=== PATIENT | male | born 1955 | race Caucasian/White ===

== ENCOUNTER 2020-01-30 09:31 | Outpatient (REF) | payer OTHER, SELFPAY ==
--- NOTE | 2020-01-30 | US_ITS ---
EXAMINATION: US ABDOMEN COMPLETE CLINICAL INFORMATION: Right upper quadrant abdominal pain. Fatty liver. Liver fibrosis. COMPARISON: Ultrasound-guided biopsy liver 04/10/2014. CT abdomen 01/25/2014. Ultrasound abdomen 01/17/2014. TECHNIQUE: Real-time imaging of the abdominal viscera. FINDINGS: PANCREAS: Normal. ABDOMINAL AORTA: The proximal segment is normal in caliber. INFERIOR VENA CAVA: Visualized portions are normal. LIVER: There is diffuse increased liver parenchymal echogenicity, most likely representing fatty infiltration. There are irregularly-shaped areas of low attenuation, probably representing areas of focal fatty sparing. The liver is slightly enlarged, right lobe measuring 19 cm in length. The liver is normal in contour. No biliary ductal dilatation. GALLBLADDER: Normal. The gallbladder is physiologically distended without evidence of stones, sludge, polyps, wall thickening or pericholecystic fluid. COMMON BILE DUCT: Normal in caliber measuring 0.3 cm in diameter. RIGHT KIDNEY: Normal. No hydronephrosis. No renal calculi or focal parenchymal lesions. The kidney measures 11.8 cm in maximum dimension. LEFT KIDNEY: Normal. No hydronephrosis. No renal calculi or focal parenchymal lesions. The kidney measures 10.8 cm in maximum dimension. SPLEEN: Normal. The spleen measures 10.8 cm in maximum dimension. FREE FLUID: None. IMPRESSION: Echogenic liver with irregularly-shaped hypoechoic peripheral areas probably representing fatty infiltration with areas of focal fatty sparing.
== END 2020-01-30 09:32 | disposition home or self-care (01) ==
LOC: HO.US 09:31
PROVIDERS: Visit Provider Internal Medicine
DX: R10.11 Right upper quadrant pain (principal); K76.0 Fatty (change of) liver, not elsewhere classified
CPT/HCPCS: 76700

== ENCOUNTER 2020-07-04 12:54 | Outpatient (REF) | payer OTHER, SELFPAY ==
[2020-07-04 13:36] LABS: MANUAL DIFF FLAG NO
[2020-07-04 13:41] LABS: Basophils Absolute Auto 0.1 X10*3/uL (0.0-0.2); Basophils Percent Auto 0.7 % (0-2); Eosinophils Absolute Auto 0.3 X10*3/uL (0.0-0.4); Eosinophils Percent Auto 3.2 % (0-4); Hematocrit 43.8 % (42-52); Hemoglobin 14.4 g/dl (14.0-18.0); Imm Gran Abs Auto 0.04 X10*3/uL (0.00-0.03); Imm Gran Pct Auto 0.4 % (0.0-0.4); Lymphocytes Absolute Auto 1.4 X10*3/uL (1.2-4.9); Lymphocytes Percent Auto 14.9 % (20-40); Mean Corpuscular HGB Conc 32.9 g/dl (31.0-36.0); Mean Corpuscular Volume 94.4 fL (80-98); Mean Platelet Volume 10.2 fL (9.4-12.4); Monocytes Absolute Auto 0.6 X10*3/uL (0.1-1.2); Monocytes Percent Auto 6.7 % (2-11); Neutrophils Absolute Auto 7.1 X10*3/uL (2.0-8.3); Neutrophils Percent Auto 74.1 % (45-73); Platelet Count 308 X10*3/uL (160-400); Red Blood Count 4.64 X10*6/uL (4.60-5.80); Red Cell Distribution Width 14.6 % (11.0-16.0); White Blood Count 9.5 X10*3/uL (4.8-10.8)
[2020-07-04 14:02] LABS: Alanine Aminotransferase 19 U/L (0-40); Albumin Level 4.5 g/dL (3.5-5.0); Alkaline Phosphatase 62 U/L (39-117); Aspartate Amino Transferase 18 U/L (5-37); Bilirubin Direct < 0.2 mg/dL (0.0-0.5); Bilirubin Total 0.3 mg/dL (0.0-1.0); C Reactive Protein 0.31 mg/dL (< or = 0.50); Total Protein 7.7 g/dL (6.5-8.0)
[2020-07-04 14:36] LABS: Erythrocyte Sedimentation Rate 4 MM/HR (0-15)
== END 2020-07-04 12:55 | disposition home or self-care (01) ==
LOC: HO.LAB 12:54
PROVIDERS: PCP Internal Medicine; Visit Provider Internal Medicine
DX: K62.5 Hemorrhage of anus and rectum (principal); R19.7 Diarrhea, unspecified
CPT/HCPCS: 36415; 80076; 85025; 85652; 86140

== ENCOUNTER 2020-07-08 09:13 | Day surgery (SDC) | payer OTHER, SELFPAY ==
[2020-07-02 10:46] VITALS: BMI 28.8
--- NOTE | 2020-07-05 09:41 | HO.ANESPROP2 ---
Documented by User: Sunni Emilia 07/05/20 09:42 HPI - Anesthesia Eval Consult details Narrative: 64yo M for Colonoscopy [facility] Past Medical History Medical History Arthritis GERD (gastroesophageal reflux disease) Hiatal hernia Hx of bipolar disorder Thyroid disease Surgical History Surgical History H/O colonoscopy History of dental surgery History of esophagogastroduodenoscopy (EGD) Social History Social History Smoking Status: Former smoker Smoked in Last 30 Days: No Smoking Quit Date: 2009 Use of substances other than those prescribed or required for medical reasons: No Advance Directives Information Provided: No Meds Allergies Allergy/AdvReac Type Severity Reaction Status Date / Time haloperidol [From HALDOL] Allergy Unknown UNKNOWN Unverified 01/11/20 16:40 prednisone [PREDNISONE] Allergy Unknown UNKNOWN, Unverified 01/11/20 16:40 er in psych Home Medications Medication Instructions Recorded Confirmed Last Taken Type acetaminophen [Tylenol Extra 1,000 mg PO Q6H PRN 07/02/20 07/02/20 Unknown History Strength] adalimumab [Humira] 40 mg SUBCUT Q2W 07/02/20 07/02/20 Unknown History cyclobenzaprine 10 mg PO TID PRN 07/02/20 07/02/20 Unknown History levothyroxine [Levoxyl] 50 mcg PO DAILY 07/02/20 07/02/20 Unknown History lithium carbonate 300 mg PO BEDTIME 07/02/20 07/02/20 Unknown History multivitamin 1 tab PO DAILY 07/02/20 07/02/20 Unknown History pantoprazole 40 mg PO DAILY 07/02/20 07/02/20 Unknown History quetiapine [Seroquel] 400 mg PO BEDTIME 07/02/20 07/02/20 Unknown History Exam Exam Date and Time: July 05, 2020 0941 Height,Weight and Vital Signs: Height 5 ft 7.5 in Weight 84.822 kg Pertinent Lab Results Pertinent Lab Results: Laboratory Tests 12/26/19 07/04/20 12:10 13:05 WBC 9.5 Hgb 14.4 Hct 43.8 Plt Count 308 Sodium 139 Potassium 4.8 Chloride 108 BUN 16 Creatinine 1.08 Assessment and Plan Assessment Anesthesia Assessment: Chart Reviewed Documented by User: Ken Romero MD 07/08/20 10:43 [facility] Past Medical History Medical History Arthritis GERD (gastroesophageal reflux disease) Hiatal hernia Hx of bipolar disorder Thyroid disease Surgical History Surgical History H/O colonoscopy History of dental surgery History of esophagogastroduodenoscopy (EGD) Social History Social History Smoking Status: Former smoker Smoked in Last 30 Days: No Smoking Quit Date: 2009 Use of substances other than those prescribed or required for medical reasons: No Advance Directives Information Provided: No Meds Allergies Allergy/AdvReac Type Severity Reaction Status Date / Time haloperidol [From HALDOL] Allergy Unknown UNKNOWN Unverified 01/11/20 16:40 prednisone [PREDNISONE] Allergy Unknown UNKNOWN, Unverified 01/11/20 16:40 er in psych Home Medications Medication Instructions Recorded Confirmed Last Taken Type acetaminophen [Tylenol Extra 1,000 mg PO Q6H PRN 07/02/20 07/02/20 Unknown History Strength] adalimumab [Humira] 40 mg SUBCUT Q2W 07/02/20 07/02/20 Unknown History cyclobenzaprine 10 mg PO TID PRN 07/02/20 07/02/20 Unknown History levothyroxine [Levoxyl] 50 mcg PO DAILY 07/02/20 07/02/20 Unknown History lithium carbonate 300 mg PO BEDTIME 07/02/20 07/02/20 Unknown History multivitamin 1 tab PO DAILY 07/02/20 07/02/20 Unknown History pantoprazole 40 mg PO DAILY 07/02/20 07/02/20 Unknown History quetiapine [Seroquel] 400 mg PO BEDTIME 07/02/20 07/02/20 Unknown History Exam Airway Mallampati Class: III TM Dist: >3cm Neck ROM: Full Denture: Upper Loose/Missing/Broken Teeth: No Heart: RRR Lungs: NL Assessment and Plan Assessment Anesthesia Assessment: Anesthesia Plan Discussed and Chart Reviewed Final Anesthetic Review NPO: Yes ASA Class: III Final Preanesthetic Review: No Changes in Pt Med Stat, Meds/Allgs Chart Reviewed, Consent Obtained/Reviewed and Anes Risks/Benef Reviewed Patient Risk: Intermediate Procedure Risk: Low Anesthetic Plan Anesthetic Plan: MAC: Disposition: Standard PACU
[2020-07-08 10:20] VITALS: BP 137/96; PULSE 72; RESP 16; TEMP 36.9; O2SAT 98
[2020-07-08] MEDS: Lactated Ringers 1,000 ML 100 ML IVCONT (10:47)
[2020-07-08 12:16] VITALS: BP 119/78; PULSE 67; RESP 18; TEMP 36.3; O2SAT 97
--- NOTE | 2020-07-08 12:25 | PM.OP ---
Brief Operative Note Date of Service: 07/08/20 Pre-op diagnosis: Diarrhea, Rectal bleeding, Hx of polyps Post-op diagnosis: other (Colon polyps, R/O Microscopic colitis) Procedure: Colonoscopy to the cecum and TI with snare polypectomy x2, biopsies and removal of polyp, and biopsies; placement of 2 Resolution clips on rectal polypectomy site, and marking of the same area with Ink. Surgeon: Heath Clifton Anesthesia: MAC Estimated blood loss (mL): 5.0 Pathology: other (A. Transverse colon polyp B. TI C. Polyp on ICV D. Ascending colon E. Descending colon F. Rectal polyp) Condition: stable Disposition: PACU
[2020-07-08 12:31] VITALS: BP 138/67; PULSE 63; RESP 16; TEMP 36.3; O2SAT 100
--- NOTE | 2020-07-08 12:47 | OP_ITS ---
SURGEON: Heath Clifton MD INDICATIONS: The patient presents for evaluation of personal history of tubular adenoma of the colon, family history colon cancer, diarrhea, and rectal bleeding. PREOPERATIVE DIAGNOSIS: POSTOPERATIVE DIAGNOSIS: PROCEDURE PERFORMED: ESTIMATED BLOOD LOSS: COMPLICATIONS: ANESTHESIA: Monitored anesthesia care. ASSISTANTS: SPECIMENS: PREOPERATIVE DIAGNOSES: Rectal bleeding, history of tubular adenomas, family history of colon cancer and diarrhea. POSTOPERATIVE DIAGNOSES: Rectal bleeding, history of tubular adenomas, family history of colon cancer and diarrhea, colon polyps, rule out microscopic colitis, diverticulosis, and internal hemorrhoids. DESCRIPTION OF PROCEDURE: The patient was placed in the left lateral decubitus position. The digital rectal exam revealed no abnormalities. The Olympus video pediatric colonoscope was entered into the rectum and advanced easily to the cecum. Once in the cecum, I did identify normal-appearing cecal pouch with appendiceal orifice and a normal-appearing ileocecal valve. The terminal ileum was cannulated and appeared normal. The terminal ileum was biopsied. The scope was withdrawn back in the colon. The ileocecal valve did appear normal, but there was an approximately 4 or 5 mm slightly raised area on the portion of the valve closest to the cecum, which appeared to be somewhat adenomatous in appearance. Therefore, this was biopsied and completely removed with cold biopsy forceps. The scope was then slowly withdrawn assessing all mucosal surfaces carefully. Preparation was excellent. In the ascending colon, I obtained biopsies to rule out microscopic colitis. Mucosa appeared normal. In the transverse colon, there was a flat, but raised approximately 8 to 10 mm polyp, which was snared in piecemeal fashion and recovered by suction for pathology. The polypectomy site appeared clean, without any sign of residual polyp nor bleeding. I did not visualize any sign of colitis nor angiodysplasia. I did obtain random biopsies in the descending colon as well to rule out microscopic colitis. There was a moderate amount of sigmoid diverticulosis. In the proximal rectum, was an approximately 1.5 cm polyp, which appeared to be somewhat inflamed and friable. This was removed completely by snare polypectomy. The polypectomy site appeared clean, without any sign of residual polyp nor bleeding. I did place 2 resolution clips on the polypectomy site with good hemostasis and good deployment. Given the appearance of the polyp, I did place submucosal ink markings on either side of it with good marking noted. The scope was retroflexed visualizing some internal hemorrhoids, but no other pathology. The scope was straightened out and withdrawn from the patient. He tolerated the procedure well and was returned to the recovery area in stable condition. IMPRESSION: 1. Colon polyps, status post snare polypectomy, and biopsy and removal. 2. Placement of 2 resolution clips and submucosal ink markings on the rectal polypectomy site. 3. Rule out microscopic colitis. 4. Diverticulosis. 5. Internal hemorrhoids. PLAN: The results of the pathology will be checked. Given his history and family history, I would recommend a repeat colonoscopy in 1 year for further screening. He was advised not to use any aspirin and NSAIDs for 1 week. He was advised to use Imodium on a p.r.n. basis for his loose bowel movements as well as to start some fiber such as Metamucil or Citrucel. If the diarrhea persists, we may want to try him on a trial of cholestyramine. He will be seen in the office in the next 1 or 2 months. This has been discussed with his . PROCEDURES PERFORMED: Colonoscopy to the cecum and terminal ileum with snare polypectomy, biopsies, and removal of polyps, biopsies, placement of 2 resolution clips on the rectal polypectomy site, and marking with submucosal ink of the rectal polypectomy site. Full consent has been obtained from him for this, including risks of bleeding and perforation. MD HERB Mendez/DORON / [id number] MTDDeborah
== END 2020-07-08 15:11 | disposition home or self-care (01) ==
PROVIDERS: PCP Internal Medicine; Visit Provider Internal Medicine
PROC: 0DJD8ZZ Inspection of Lower Intestinal Tract, Via Natural or Artificial Opening Endoscopic (ICD-10-PCS; CPT 45378; principal; 2020-07-08 10:50)
DX: K62.5 Hemorrhage of anus and rectum (principal); Z86.010 Personal history of colon polyps; Z80.0 Family history of malignant neoplasm of digestive organs; D12.0 Benign neoplasm of cecum; D12.3 Benign neoplasm of transverse colon; D12.8 Benign neoplasm of rectum; K52.9 Noninfective gastroenteritis and colitis, unspecified; K57.30 Diverticulosis of large intestine without perforation or abscess without bleeding; K64.8 Other hemorrhoids; K21.9 Gastro-esophageal reflux disease without esophagitis; M06.9 Rheumatoid arthritis, unspecified; E03.9 Hypothyroidism, unspecified; Z87.891 Personal history of nicotine dependence; Z88.8 Allergy status to other drugs, medicaments and biological substances; Z79.899 Other long term (current) drug therapy
CPT/HCPCS: 45385; 45380; 45381; 88305; J3010

== ENCOUNTER 2021-04-19 11:15 | Emergency (ER) | payer OTHER, SELFPAY ==
[2021-04-19 11:19] VITALS: BP 130/78; PULSE 57; RESP 20; TEMP 37.6; O2SAT 96; BMI 28.1
[2021-04-19 12:41] LABS: COVID-19 Test Negative (Negative)
--- NOTE | 2021-04-19 17:31 | ED.URI ---
HPI - URI/Sore Throat General Chief Complaint: Upper Respiratory Symptoms Stated Complaint: CONGESTION Time Seen by Provider: 04/19/21 12:12 History of Present Illness HPI Narrative: Patient complains of nasal congestion runny nose for several days, no shortness breath no chest pain cough no fever Related Data Home Medications Medication Instructions Recorded Confirmed acetaminophen 500 mg tablet 1,000 mg PO Q6H PRN 07/02/20 07/02/20 (Tylenol Extra Strength) adalimumab 40 mg/0.8 mL 40 mg SUBCUT Q2W 07/02/20 07/02/20 subcutaneous syringe kit (Humira) cyclobenzaprine 10 mg tablet 10 mg PO TID PRN 07/02/20 07/02/20 levothyroxine 50 mcg tablet 50 mcg PO DAILY 07/02/20 07/02/20 (Levoxyl) lithium carbonate 300 mg capsule 300 mg PO BEDTIME 07/02/20 07/02/20 multivitamin 1 tab PO DAILY 07/02/20 07/02/20 pantoprazole 40 mg tablet,delayed 40 mg PO DAILY 07/02/20 07/02/20 release quetiapine 400 mg tablet (Seroquel) 400 mg PO BEDTIME 07/02/20 07/02/20 Allergies Allergy/AdvReac Type Severity Reaction Status Date / Time haloperidol [From HALDOL] Allergy Unknown UNKNOWN Unverified 01/11/20 16:40 prednisone [PREDNISONE] Allergy Unknown UNKNOWN, Unverified 01/11/20 16:40 er in psych Review of Systems Review of Systems: Positive for nasal congestion and runny nose Negatives are no fever no chills no dizziness weakness no headache no neck pain no sore throat no chest pain no cough no sputum no difficulty breathing no abdominal pain no nausea vomiting or diarrhea Yes all other systems are reviewed and are negative PMFSH Past Medical History Source: nursing notes reviewed Medical History Arthritis GERD (gastroesophageal reflux disease) Hiatal hernia Hx of bipolar disorder Thyroid disease Surgical History H/O colonoscopy History of dental surgery History of esophagogastroduodenoscopy (EGD) Social History Social History Advance Directives: No Advance Directives Information Provided: No Physical Exam Vital Signs: Vital Signs: Last Vital Signs Temp 99.6 F 04/19/21 11:19 Pulse 57 04/19/21 11:19 Resp 20 04/19/21 11:19 BP 130/78 04/19/21 11:19 Pulse Ox 96 04/19/21 11:19 BMI result Body Mass Index 28.1 General appearance no acute distress the eyes no redness or discharge Chest was clear to auscultation bilateral No respiratory distress Heart no murmur Extremities full range of motion x4 Course Course Course Narrative: COVID test was negative and well-appearing patient was discharge diagnosis upper respiratory infection MDM - URI/Sore Throat Lab Data Labs: Lab Results 04/19/21 Range/Units 12:19 COVID-19 (JIGNA) Negative (Negative) COVID-19 Clin Com See Note Discharge Plan Discharge Clinical Impression: Upper respiratory infection Patient Disposition: Home, Self-Care Additional Instructions: COVID test is negative, your well-appearing and her vital signs were normal Return any time any concerns Prescriptions: No Action multivitamin Tablet 1 tab PO DAILY RF: 0 cyclobenzaprine 10 mg Tablet 10 mg PO TID PRN (Reason: Muscle Spasm) RF: 0 acetaminophen [Tylenol Extra Strength] 500 mg Tablet 1,000 mg PO Q6H PRN (Reason: Pain) RF: 0 lithium carbonate 300 mg Capsule 300 mg PO BEDTIME RF: 0 levothyroxine [Levoxyl] 50 mcg Tablet 50 mcg PO DAILY RF: 0 pantoprazole 40 mg Tablet,Delayed Release (Dr/Ec) 40 mg PO DAILY RF: 0 Humira 40 mg/0.8 mL Syringe Kit 40 mg SUBCUT Q2W RF: 0 quetiapine [Seroquel] 400 mg Tablet 400 mg PO BEDTIME RF: 0 Interventions: ED Discharge Assessment Last Done: 04/19/21 13:00 Discharge Date/Time: 04/19/21 13:00
== END 2021-04-19 13:00 | disposition home or self-care (01) ==
PROVIDERS: Physician Assistant Medical; Emergency Provider Emergency Medicine Emergency Medical Services; PCP Internal Medicine
DX: J06.9 Acute upper respiratory infection, unspecified (principal); Z20.822 Contact with and (suspected) exposure to COVID-19
CPT/HCPCS: 36415; 87635; 99283

== ENCOUNTER 2021-08-09 18:06 | Emergency (ER) | payer OTHER, SELFPAY ==
--- NOTE | ~2021-08-09 | CT_ITS ---
EXAMINATION: CT ABDOMEN AND PELVIS WITH CONTRAST CLINICAL INFORMATION: Right inguinal hernia. COMPARISON: 01/25/2014 TECHNIQUE: Multidetector volumetric images were obtained from the superior aspect of the liver through the pubic symphysis following administration 85 mL of Omnipaque 350 intravenous contrast. Sagittal and coronal reformatted images were obtained on the technologist's workstation. Oral contrast: No This CT examination was performed using dose optimization techniques as appropriate, variously including the following: *Automated exposure control *Adjustment of mA and/or kV according to patient size (this includes techniques or standardized protocols for targeted exams where dose is matched to indication/reason for exam; i.e. extremities or head) *Use of iterative reconstruction technique DLP: 515 mGy-cm FINDINGS: LUNG BASES: The visualized lung bases are unremarkable. LIVER, GALLBLADDER, AND BILIARY TREE: The liver is normal in size, shape, and attenuation. No focal hepatic lesion or biliary ductal dilatation is present. Gallbladder unremarkable. PANCREAS: Unremarkable. SPLEEN: Unremarkable. ADRENAL GLANDS: Unremarkable. KIDNEYS AND URETERS: The kidneys are normal in size, shape, and attenuation. No hydronephrosis, hydroureter, or calculi seen. No perinephric stranding. BLADDER: Unremarkable. GASTROINTESTINAL TRACT: Pancolonic diverticulosis. There is a short segment of the sigmoid colon in the right lower quadrant demonstrating marked submucosal edema and pericolic fat stranding associated with an inflamed diverticulum compatible with acute diverticulitis. Stomach and small bowel unremarkable. Appendix not seen, however there are no inflammatory changes in the pericecal region that might reflect appendicitis. ABDOMINAL WALL: There is a fat-containing direct internal hernia on the right, adjacent to the inflamed portion of the sigmoid colon, however no hollow visceral herniation. LYMPH NODES: Normal. VASCULAR: Aorta is atherosclerotic but normal caliber. Patent vascular structures. PELVIC VISCERA: Unremarkable. OSSEOUS STRUCTURES: No acute or suspicious osseous abnormalities. CT/CT abdomen pelvis w con IMPRESSION: Acute uncomplicated sigmoid diverticulitis within the right lower quadrant. Fat-containing direct inguinal hernia on the right.
[2021-08-09 18:07] VITALS: BP 113/78; PULSE 72; RESP 16; TEMP 36.3; O2SAT 96; BMI 27.3
[2021-08-09 18:25] LABS: MANUAL DIFF FLAG NO
[2021-08-09 18:27] LABS: Basophils Absolute Auto 0.1 X10*3/uL (0.0-0.2); Basophils Percent Auto 0.3 % (0-2); Eosinophils Absolute Auto 0.3 X10*3/uL (0.0-0.4); Eosinophils Percent Auto 2.3 % (0-4); Hematocrit 43.9 % (42.0-52.0); Hemoglobin 14.8 g/dl (14.0-18.0); Imm Gran Abs Auto 0.07 X10*3/uL (0.00-0.03); Imm Gran Pct Auto 0.5 % (0.0-0.4); Lymphocytes Absolute Auto 1.7 X10*3/uL (1.2-4.9); Mean Corpuscular HGB Conc 33.7 g/dl (31.0-36.0); Mean Corpuscular Hemoglobin 30.5 pg (27.0-33.0); Mean Corpuscular Volume 90.5 fL (80.0-98.0); Mean Platelet Volume 9.8 fL (9.4-12.4); Monocytes Absolute Auto 1.2 X10*3/uL (0.1-1.2); Monocytes Percent Auto 8.1 % (2-11); Neutrophils Absolute Auto 11.1 x10*3/uL (2.0-8.3); Neutrophils Percent Auto 76.8 % (45-73); Platelet Count 296 X10*3/uL (160-400); Red Blood Count 4.85 X10*6/uL (4.60-5.80); Red Cell Distribution Width 13.2 % (11.0-16.0); White Blood Count 14.5 X10*3/uL (4.8-10.8)
[2021-08-09 18:41] LABS: Anion Gap 13 (12-20); Blood Urea Nitrogen 11 mg/dL (9-16); Calcium 9.3 mg/dL (8.4-10.2); Carbon Dioxide 20 mmol/L (22-29); Chloride 108 mmol/L (96-108); Creatinine Clr Calc Pharmacy 81.2; Estimated Glomerular Filt Rate > 60; Glucose Random 96 mg/dL (60-115); Sodium 137 mmol/L (135-145)
--- NOTE | 2021-08-09 21:12 | ED.GENADULT ---
HPI - General Adult General Chief complaint: General Medical Stated complaint: hernia Time Seen by Provider: 08/09/21 21:12 Source: patient Mode of arrival: ambulatory Limitations: no limitations History of Present Illness HPI narrative: 65-year-old male who has a history of right groin pain x5 years. He states that 5 years ago he felt a pop and then developed a mass in his right groin after doing sit-ups. He states that usually he can reduce this mass whenever it is painful. Over the past 4 days however the mass is not been reducible and he has had constant moderate to severe pain in his right groin. The pain is worse with walking and with coughing. He states that he lies flat the pain is improved. Patient describes the pain as a constant, severe pain which is 10/10. He has had no nausea or vomiting. He states he has been having bowel movements but they are painful and less frequent. He denied frequency, urgency or dysuria. MD complaint: Right groin pain Onset (ago): day(s) (4) Location: abdomen ( right groin) Radiation: non-radiation Severity: severe Severity scale (1-10): 10 Quality: aching and constant Pain Consistency: constant Related Data Home Medications Medication Instructions Recorded Confirmed acetaminophen 500 mg tablet 1,000 mg PO Q6H PRN 07/02/20 07/02/20 (Tylenol Extra Strength) adalimumab 40 mg/0.8 mL 40 mg SUBCUT Q2W 07/02/20 07/02/20 subcutaneous syringe kit (Humira) cyclobenzaprine 10 mg tablet 10 mg PO TID PRN 07/02/20 07/02/20 levothyroxine 50 mcg tablet 50 mcg PO DAILY 07/02/20 07/02/20 (Levoxyl) lithium carbonate 300 mg capsule 300 mg PO BEDTIME 07/02/20 07/02/20 multivitamin 1 tab PO DAILY 07/02/20 07/02/20 pantoprazole 40 mg tablet,delayed 40 mg PO DAILY 07/02/20 07/02/20 release quetiapine 400 mg tablet (Seroquel) 400 mg PO BEDTIME 07/02/20 07/02/20 Allergies Allergy/AdvReac Type Severity Reaction Status Date / Time haloperidol [From HALDOL] Allergy Unknown UNKNOWN Verified 08/09/21 18:11 prednisone [PREDNISONE] Allergy Unknown UNKNOWN, Verified 08/09/21 18:11 er in psych Review of Systems Review of Systems: Yes all other systems are reviewed and are negative [facility] Past Medical History [facility] Narrative: social history: The patient smokes 2 cigars per day. Denies alcohol use. He denies drug use. Medical History Arthritis GERD (gastroesophageal reflux disease) Hiatal hernia Hx of bipolar disorder Thyroid disease Surgical History H/O colonoscopy History of dental surgery History of esophagogastroduodenoscopy (EGD) Social History Social History Advance Directives: No Physical Exam ED Vital Signs: Vital Signs - 24 hr 08/09/21 18:07 08/09/21 22:22 Temperature 97.4 F Pulse Rate 72 55 Respiratory Rate 16 16 Blood Pressure 113/78 118/63 Pulse Oximetry 96 97 BMI result Body Mass Index 27.3 Const General: cooperative and no acute distress Orientation/consciousness: oriented to person and oriented to place Limitations: no limitations HENMT Head: Yes normal to inspection, Yes normocephalic and Yes atraumatic Ears: external ears normal General nose exam: Normal external nose present Face and sinus: Yes normal facial exam Mouth: Normal oral and palatal mucosa present Throat: Yes posterior oropharynx normal Eyes General: appearance normal, both eyes and all related structures Pupils: Equal, round and reactive pupils present Neck Neck: Yes normal visual inspection, Yes no lymphadenopathy, Yes trachea midline and Yes supple Chest Chest palpation & inspection: normal inspection of the chest and normal palpation of entire chest wall Resp Effort & Inspection: normal respiratory effort and able to speak in complete sentences Auscultation: clear to auscultation bilaterally Cardio Rate: regular rate Rhythm: regular rhythm Heart sounds: S1 normal heart sound present, S2 normal heart sound present and no murmurs GI Inspection: Yes normal to inspection Palpation (GI): Soft to palpation, nontender and no guarding Auscultation: normal bowel sounds Other: Right, inguinal hernia which is firm and very tender to palpation. General: Yes no CVA tenderness Penis: normal penis and circumcised Meatus: meatus normal Scrotum: scrotum normal and testes descended bilaterally Testes: Testes normal Back/Spine/Pelvis Back: no CVA tenderness Skin General skin exam: no rashes or lesions noted Neuro General: oriented to person and oriented to place Cranial nerves: Yes CN's II-XII intact bilaterally and Yes Equal, round and reactive pupils present Cognition (Neuro): normal cognition Motor exam (neuro): 5/5 motor strength present throughout Extrem General: Yes normal to inspection Psych Appearance: grossly normal Speech and movement: Normal speech and movement present Affect: normal affect Attitude: cooperative Thought process: Normal thought process present Thought content: Normal thought content present Course Course Course Narrative: 65-year-old male with a history of a right inguinal hernia x4 years who presents emergency department for evaluation of 4 days of right inguinal pain and inability to reduces hernial mass. Vital signs were normal. Patient has a right your hernia which is firm and very tender to palpation. I order laboratory evaluation including a CT scan of the abdomen pelvis with IV contrast. patient was ordered to get Toradol and morphine IV 1st pa in as well. 2310: [place] [address], otherwise laboratory evaluation was unremarkable. CT scan is pending. 2317:I attempted to reduce the patient's hernia and I was unsuccessful. I did contact the on-call surgeon, Dr. Koch. he came to the emergency department he was able to reduce the hernia. The patient is feeling significantly better. The patient will follow-up with Dr. Koch next week for re-evaluation and possible surgical correction of this hernia pain. the patient was advised not do any strenuous exercise and to rest until he is re-evaluated. He was given a work note as well. Medical Decision Making Lab Data Result diagrams: 08/09/21 18:14 08/09/21 18:14 Labs: Lab Results 08/09/21 08/09/21 08/09/21 Range/Units 18:14 18:14 22:08 WBC 14.5 H (4.8-10.8) X10*3/uL RBC 4.85 (4.60-5.80) X10*6/uL Hgb 14.8 (14.0-18.0) g/dl Hct 43.9 (42.0-52.0) % MCV 90.5 (80.0-98.0) fL MCH 30.5 (27.0-33.0) pg MCHC 33.7 (31.0-36.0) g/dl RDW 13.2 (11.0-16.0) % Plt Count 296 (160-400) X10*3/uL MPV 9.8 (9.4-12.4) fL Immature Gran % (Auto) 0.5 H (0.0-0.4) % Neut % (Auto) 76.8 H (45-73) % Lymph % (Auto) 12.0 L (20-40) % [place] % (Auto) 8.1 (2-11) % Eos % (Auto) 2.3 (0-4) % Baso % (Auto) 0.3 (0-2) % Lymph # (Auto) 1.7 (1.2-4.9) X10*3/uL [place] # (Auto) 1.2 (0.1-1.2) X10*3/uL Eos # (Auto) 0.3 (0.0-0.4) X10*3/uL Baso # (Auto) 0.1 (0.0-0.2) X10*3/uL Abs Immat Gran (auto) 0.07 H (0.00-0.03) X10*3/uL Absolute Neuts (auto) 11.1 H (2.0-8.3) x10*3/uL Absolute Nucleated RBC 0.000 (0.0-0.012) X10*3/uL Nucleated RBC % (auto) 0.0 (0.0-0.2) /100WBC Sodium 137 (135-145) mmol/L Potassium 4.0 (3.3-5.1) mmol/L Chloride 108 (96-108) mmol/L Carbon Dioxide 20 L (22-29) mmol/L Anion Gap 13 (12-20) BUN 11 (9-16) mg/dL Creatinine 0.94 (0.5-1.4) mg/dL Estim Creat Clear Calc 81.2 Estimated GFR > 60 Random Glucose 96 (60-115) mg/dL Calcium 9.3 (8.4-10.2) mg/dL Total Bilirubin 0.8 (0.0-1.0) mg/dL Direct Bilirubin 0.3 (0.0-0.5) mg/dL AST 11 (5-37) U/L ALT 9 (0-40) U/L Alkaline Phosphatase 68 (39-117) U/L Total Protein 7.0 (6.5-8.0) g/dL Albumin 4.0 (3.5-5.0) g/dL Lipase 18 (8-78) U/L Urine Color YELLOW Urine Appearance CLEAR Urine pH 6.0 (5.0-8.0) Ur Specific [place] <= 1.005 (1.005-1.025) Urine Protein NEG (NEG-TRACE) MG/DL Urine Glucose (UA) NEG (NEG) MG/DL Urine Ketones NEG (NEG) MG/DL Urine Blood NEG (NEG) Urine Nitrite NEG (NEG) Ur Leukocyte Esterase 1+ H (NEG) Urine RBC 1-4 (0) /HPF Urine WBC 15-29 H (0-4) /HPF Urine WBC Clumps NOTED Ur Squamous Epith Cells 3+ /LPF Urine Bacteria 1+ /LPF Urine Mucus 1+ /LPF Discharge Plan Discharge Clinical Impression: Inguinal hernia Qualifiers: Obstruction and gangrene presence: without obstruction or gangrene Laterality: unilateral Recurrence: recurrent Qualified Code(s): K40.91 - Unilateral inguinal hernia, without obstruction or gangrene, recurrent Instructions: Inguinal Hernia (ED) Additional Instructions: You have a right inguinal hernia which was stuck (incarcerated) which was reduced by our surgeon, Dr. Koch. You need to avoid any strenuous activity until you are re-evaluated by him next week. He wants you to call his office on 08/12/2021 to make an appointment for next week to discuss repair of the hernia. Take Tylenol (acetaminophen) 500 mg pills, 2 pills every 4 to 6 hours as needed for pain. Follow-up with your doctor in 2 days. Please return to the emergency department if your symptoms get worse or if you develop any symptoms that are concerning to you. Please see work note Prescriptions: No Action multivitamin Tablet 1 tab PO DAILY 0RF cyclobenzaprine 10 mg Tablet 10 mg PO TID PRN (Reason: Muscle Spasm) 0RF acetaminophen [Tylenol Extra Strength] 500 mg Tablet 1,000 mg PO Q6H PRN (Reason: Pain) 0RF lithium carbonate 300 mg Capsule 300 mg PO BEDTIME 0RF levothyroxine [Levoxyl] 50 mcg Tablet 50 mcg PO DAILY 0RF pantoprazole 40 mg Tablet,Delayed Release (Dr/Ec) 40 mg PO DAILY 0RF Humira 40 mg/0.8 mL Syringe Kit 40 mg SUBCUT Q2W 0RF quetiapine [Seroquel] 400 mg Tablet 400 mg PO BEDTIME 0RF Referrals: Tha Koch MD [Physician] - 3 days Stand Alone Forms: Work/School Release
[2021-08-09 21:44] LABS: Alanine Aminotransferase 9 U/L (0-40); Alkaline Phosphatase 68 U/L (39-117); Aspartate Amino Transferase 11 U/L (5-37); Bilirubin Direct 0.3 mg/dL (0.0-0.5); Bilirubin Total 0.8 mg/dL (0.0-1.0); Lipase 18 U/L (8-78)
[2021-08-09] MEDS: Ketorolac Tromethamine 15 MG/ML VIAL IVPUSH (22:04)
[2021-08-09 22:15] LABS: Appearance Urine CLEAR; Color Urine YELLOW; Glucose Urine UA NEG (NEG); Leukocyte Esterase Urine 1+ (NEG); Nitrite Urine NEG (NEG); Specific Gravity - Urine <= 1.005 (1.005-1.025); UACC Culture Trigger YES; Urine Blood NEG (NEG); Urine Ketones NEG (NEG); Urine Protein NEG (NEG-TRACE)
[2021-08-09 22:22] VITALS: BP 118/63; PULSE 55; RESP 16; O2SAT 97
[2021-08-09] MEDS: Morphine Sulfate 4 MG/ML CARTRIDGE IVPUSH (22:41)
[2021-08-09 22:48] LABS: Bacteria Urine 1+ /LPF; Mucus Urine 1+ /LPF; Squamous Epithelial Cell Urine 3+ /LPF; WBC Clumps Urine NOTED
[2021-08-09] MEDS: iohexoL 350 MG/ML 100 ML INFUS..BTL IV (22:54)
--- NOTE | 2021-08-09 23:22 | P.CONGS_ITS ---
History of Present Illness Consult details Consult date: 08/09/21 Reason for consult: abdominal pain Narrative: ?65-year-old male patient presenting with complaints of a intermittent lump in the right groin for the past 5 years which developed after doing sit-ups at work. He is usually able to reduce the hernia when it pops through but reports increased pain and swelling for the past 4 days in the right groin. He has been unable to reduce the hernia and presented to the emergency department today for further evaluation. The pain increases with walking and standing is improved somewhat with lying supine. He denies nausea, vomiting, fever, or chills. [place] els have been difficult to pass due to the pain. He denies any urinary symptoms. He denies a prior history of hernia. In the emergency department he was noted to have a tender lump in the right groin. He was placed in Trendelenburg and an ice pack placed on the right groin. He was given pain m edication and attempt made to reduce the hernia however due to the severe pain the hernia could not be reduced. A CT of the abdomen and pelvis was obtained does reveal inflamed loop of bowel within the hernia sac on the right. Report indicates acute uncomplicated sigmoid diverticulitis and a fat containing right inguinal hernia. Surgical consultation was requested for further management of this right inguinal hernia incarceration. Review of Systems Constitutional: Constitutional: Denies chills, Denies fever(s), Denies headache(s) and Denies poor appetite ENT: Denies dizziness and Denies headache(s) Cardiovascular: Cardiovascular: Denies chest pain, Denies rapid heart rate, Denies palpitations and Denies slow heart rate Respiratory: Respiratory: Denies chest congestion, Denies cough, Denies pain on inspiration and Denies wheezing Gastrointestinal: Gastrointestinal: Reports abdominal pain, Reports bloating, Reports change in stool character, Reports constipation, Denies diarrhea, Denies nausea, Denies vomiting and Denies hematemesis Genitourinary: Genitourinary: Reports no additional male genitourinary complaints Musculoskeletal: Musculoskeletal: Reports as per HPI, Denies back pain, Denies arthralgias, Denies joint swelling and Denies numbness Integumentary/Breasts: Skin/Breast: Denies change in pigmentation, Denies erythema and Denies rash Neurologic: Denies dizziness, Denies headache(s) and Denies numbness Psychiatric: Psychiatric: Denies anxiety and Denies depression Endocrine: Endocrine: Denies palpitations Hematologic/Lymphatic: Hematologic/Lymphatic: Denies easy bleeding, Denies easy bruising and Denies lymphadenopathy Allergic/Immunologic: Allergic/Immunologic: Denies wheezing PMFSH Past Medical History Medical History Arthritis GERD (gastroesophageal reflux disease) Hiatal hernia Hx of bipolar disorder Thyroid disease Surgical History Surgical History H/O colonoscopy History of dental surgery History of esophagogastroduodenoscopy (EGD) Social History Social History Advance Directives: No Meds Allergies Allergy/AdvReac Type Severity Reaction Status Date / Time haloperidol [From HALDOL] Allergy Unknown UNKNOWN Verified 08/09/21 18:11 prednisone [PREDNISONE] Allergy Unknown UNKNOWN, Verified 08/09/21 18:11 er in [facility] Home Medications Medication Instructions Recorded Confirmed Last Taken Type acetaminophen 500 mg tablet 1,000 mg PO Q6H PRN 07/02/20 07/02/20 Unknown History (Tylenol Extra Strength) adalimumab 40 mg/0.8 mL 40 mg SUBCUT Q2W 07/02/20 07/02/20 Unknown History subcutaneous syringe kit (Humira) cyclobenzaprine 10 mg tablet 10 mg PO TID PRN 07/02/20 07/02/20 Unknown History levothyroxine 50 mcg tablet 50 mcg PO DAILY 07/02/20 07/02/20 Unknown History (Levoxyl) lithium carbonate 300 mg capsule 300 mg PO BEDTIME 07/02/20 07/02/20 Unknown History multivitamin 1 tab PO DAILY 07/02/20 07/02/20 Unknown History pantoprazole 40 mg tablet,delayed 40 mg PO DAILY 07/02/20 07/02/20 Unknown History release quetiapine 400 mg tablet (Seroquel) 400 mg PO BEDTIME 07/02/20 07/02/20 Unknown History Physical Exam Vital Signs: Vital Signs: Last Vital Signs Temp 97.4 F 08/09/21 18:07 Pulse 55 08/09/21 22:22 Resp 16 08/09/21 22:22 BP 118/63 08/09/21 22:22 Pulse Ox 97 04/16/22 22:22 BMI result Body Mass Index 27.3 Const: General: cooperative, well developed and in distress Nutritional Appearance: well nourished Orientation/consciousness: patient oriented x3 HEENT: Head: Yes normocephalic and Yes atraumatic Ears: hearing grossly normal bilaterally Eyes: Sclerae: sclerae normal EOM: EOMs intact bilaterally Neck: Neck: Yes normal visual inspection Resp: Effort & Inspection: normal respiratory effort, no cough, no respiratory distress and no stridor Cardio: Jugular venous distension: no JVD GI: Other: palpation in the right groin reveals a small hernia which is quite tender. Gentle pressure on the internal ring with upward pressure on the apex of the hernia allow the hernia to reduce into the abdominal cavity. No further lump is noted at this time. Ice pack was returned to the right groin the patient kept in a supine position. No hernias noted on the left side. Inspection: Yes normal to inspection Palpation (GI): Soft to palpation, Tenderness to palpation present (GI) ( Right groin), no guarding and not rigid Skin: General skin exam: dry skin Rashes: no rashes Neuro: General: patient oriented x3 and no focal motor deficits Extrem: General: Yes full ROM and Yes no clubbing, cyanosis or edema Psych: Appearance: grossly normal Results Labs Result diagrams: 08/09/21 18:14 08/09/21 18:14 Labs: Abnormal lab results 08/09/21 08/09/21 08/09/21 Range/Units 18:14 18:14 22:08 WBC 14.5 H (4.8-10.8) X10*3/uL Immature Gran % (Auto) 0.5 H (0.0-0.4) % Neut % (Auto) 76.8 H (45-73) % Lymph % (Auto) 12.0 L (20-40) % Abs Immat Gran (auto) 0.07 H (0.00-0.03) X10*3/uL Absolute Neuts (auto) 11.1 H (2.0-8.3) x10*3/uL Carbon Dioxide 20 L (22-29) mmol/L Ur Leukocyte Esterase 1+ H (NEG) Urine WBC 15-29 H (0-4) /HPF Short CBC 08/09/21 Range/Units 18:14 WBC 14.5 H (4.8-10.8) X10*3/uL Hgb 14.8 (14.0-18.0) g/dl Hct 43.9 (42.0-52.0) % Plt Count 296 (160-400) X10*3/uL BMP 08/09/21 18:14 Sodium 137 Potassium 4.0 Chloride 108 Carbon Dioxide 20 L BUN 11 Creatinine 0.94 Calcium 9.3 Liver Function 08/09/21 Range/Units 18:14 Total Bilirubin 0.8 (0.0-1.0) mg/dL Direct Bilirubin 0.3 (0.0-0.5) mg/dL AST 11 (5-37) U/L ALT 9 (0-40) U/L Alkaline Phosphatase 68 (39-117) U/L Albumin 4.0 (3.5-5.0) g/dL Urine 08/09/21 Range/Units 22:08 Urine Color YELLOW Urine Appearance CLEAR Urine pH 6.0 (5.0-8.0) Ur Specific [place] <= 1.005 (1.005-1.025) Urine Protein NEG (NEG-TRACE) MG/DL Urine Glucose (UA) NEG (NEG) MG/DL All other labs normal. Assessment and Plan (1) Inguinal hernia: Qualifiers: Laterality: unilateral Obstruction and gangrene presence: without obstruction or gangrene Recurrence: recurrent Qualified Code(s): K40.91 - Unilateral inguinal hernia, without obstruction or gangrene, recurrent Status: Acute Plan 62-year-old male patient presenting with an incarcerated right inguinal hernia x4 days. Hernia was able to be reduced in the ED withlight pressure and CT of the abdomen confirms fat containing right inguinal hernia without bowel within the sac. I recommended repair of this right inguinal hernia within the next several days to have suggested he follow up in the office on Wednesday to make arrangements for the surgery. The patient understands and agrees with the plan. Procedures Date of Service Date of Service: 08/09/21
== END 2021-08-10 00:10 | disposition home or self-care (01) ==
PROVIDERS: Emergency Provider Emergency Medicine Emergency Medical Services; PCP Internal Medicine
DX: K40.91 Unilateral inguinal hernia, without obstruction or gangrene, recurrent (principal)
CPT/HCPCS: 36415; 74177; 80048; 80076; 81001; 83690; 85025; 87086; 96374; 96375; 99284; J1885; J2270; Q9967

== ENCOUNTER → 2021-08-12 14:48 | Outpatient (BNVA) | payer OTHER, SELFPAY | PROVIDERS: PCP Internal Medicine; Visit Provider Surgery | DX: Z13.89 Encounter for screening for other disorder (principal) ==

== ENCOUNTER 2021-08-13 10:24 | Day surgery (SDC) | payer OTHER, SELFPAY ==
[2021-08-13 10:30] VITALS: BMI 26.6
[2021-08-13 10:42] VITALS: BP 128/67; PULSE 53; RESP 20; TEMP 36.2; O2SAT 97
[2021-08-13] MEDS: Lactated Ringers 1,000 ML 100 ML IVCONT (10:55)
--- NOTE | 2021-08-13 10:56 | P.CONAN_ITS ---
[facility] Active Problems Active Problems: All Active Problems (Updated 08/12/21 @ 15:13 by Tha Koch MD) Incarcerated right inguinal hernia (Acute) Past Medical History Medical History Arthritis GERD (gastroesophageal reflux disease) Hiatal hernia Hx of bipolar disorder Thyroid disease Functional capacity: independent ambulation Surgical History Surgical History H/O colonoscopy History of dental surgery History of esophagogastroduodenoscopy (EGD) History of Problems with Anesthesia: No Social History Social History Patient Tobacco Use Status: Current everyday Tobacco user Tobacco use type: Cigar Cigarettes Per Day: 2 Use of substances other than those prescribed or required for medical reasons: No Are you DNR?: No Advance Directives: No Advance Directives Information Provided: Yes Recently lost weight without trying: Yes How much weight loss: 2-13 pounds Meds Allergies Allergy/AdvReac Type Severity Reaction Status Date / Time haloperidol [From HALDOL] Allergy Unknown UNKNOWN Verified 08/09/21 18:11 prednisone [PREDNISONE] Allergy Unknown UNKNOWN, Verified 08/09/21 18:11 er in psych Active Medications: Current Medications Cefazolin Sodium/Dextrose (Ancef) 2 gm in 50 mls @ 100 mls/hr IV PREOP ONE Stop: 08/13/21 11:14 Home Medications Medication Instructions Recorded Confirmed Last Taken Type acetaminophen 500 mg tablet 1,000 mg PO Q6H PRN 07/02/20 08/12/21 Unknown History (Tylenol Extra Strength) adalimumab 40 mg/0.8 mL 40 mg SUBCUT Q2W 07/02/20 07/02/20 Unknown History subcutaneous syringe kit (Humira) cyclobenzaprine 10 mg tablet 10 mg PO TID PRN 07/02/20 07/02/20 Unknown History levothyroxine 50 mcg tablet 50 mcg PO DAILY 07/02/20 07/02/20 Unknown History (Levoxyl) lithium carbonate 300 mg capsule 300 mg PO BEDTIME 07/02/20 07/02/20 Unknown History multivitamin 1 tab PO DAILY 07/02/20 07/02/20 Unknown History pantoprazole 40 mg tablet,delayed 40 mg PO DAILY 07/02/20 07/02/20 Unknown History release quetiapine 400 mg tablet (Seroquel) 400 mg PO BEDTIME 07/02/20 07/02/20 Unknown History Exam Exam Date and Time: August 13, 2021 1056 Height,Weight and Vital Signs: Height 5 ft 7 in Weight 77.111 kg Last Vital Signs Temp 97.2 F 08/13/21 10:42 Pulse 53 08/13/21 10:42 Resp 20 08/13/21 10:42 BP 128/67 08/13/21 10:42 Pulse Ox 97 08/13/21 10:42 Airway Mallampati Class: III TM Dist: >3cm Neck ROM: Full Heart: RRR Lungs: CTA Assessment and Plan Final Anesthetic Review History of Problems with Anesthesia: No ASA Class: II Final Preanesthetic Review: No Changes in Pt Med Stat, Consent Obtained/Reviewed and Anes Risks/Benef Reviewed Patient Risk: Intermediate Procedure Risk: Low Anesthetic Plan Anesthetic Plan: GA Disposition: Standard PACU
--- NOTE | 2021-08-13 11:55 | P.OP_ITS ---
Operative Note Operative Note Date of Service: 08/13/21 Narrative: Preoperative diagnosis: Right inguinal hernia Postoperative diagnosis: Same Procedure: Repair of right inguinal hernia with mesh Surgeon: Tha Koch MD [employer] Technical Operator: Julienne Peng PA-C Anesthesia: General LMA Indications for procedure: 65-year-old male patient presenting with complaints of abdominal pain in the right groin found to have an incarcerated right inguinal hernia. He was evaluated in the emergency department in the hernia reduced. Presents now for repair of this right inguinal hernia. Operative findings:. Patient found to have a direct right inguinal hernia repaired with a large extended PHS mesh Specimen: None Estimated blood loss: 2 mL Complications: None Procedure details: Patient was brought to the OR and placed in a supine position. After administering general anesthesia the patient's abdomen was prepped with ChloraPrep and draped in a sterile fashion. A surgical time-out was called the consent confirmed. Patient received preoperative antibiotics and Venodyne boots were in place. Local anesthesia consisting of 0.5% Sensorcaine was infiltrated over the right inguinal ligament. Incision was then made in oblique fashion over the inguinal ligament. This carried out through subcutaneous tissue past Bere's fashion up to the external oblique aponeurosis. Additional local was infiltrated below the external oblique aponeurosis. This was then incised with a scalpel wide with the Metzenbaum scissors. Spermatic cord was then dissected free from the surrounding inguinal canal and retracted using a Trina drain. The floor of the inguinal canal was examined and a direct hernia was identified. Fibers of the cremasteric muscle were then and no indirect sac was identified. The direct inguinal hernia was then grasped at the apex with Allis clamps. The internal oblique and transversalis aponeurosis was then incised with the electrocautery. Preperitoneal space was then entered. This was further defined using an open Ray-Sekou sponge. A Large extended PHS mesh was then obtained. The circular underlay was placed into the preperitoneal space and deployed. The overlay was then secured to the pubic tubercle conjoined tendon shelving edge of the inguinal ligament using interrupted 0 Polysorb sutures. A slit was made in the mesh and the mesh were wrapped around the spermatic cord at the internal ring. This was then secured to the shelving edge of the inguinal ligament using the 0 Polysorb suture. This was felt to be loose enough to allow the tip of an index finger to pass. Wounds were checked for hemostasis. Wounds were irrigated with saline solution and suctioned dry. The tissue was then covered with 5.5 mL of Zenrelef. After which the external oblique aponeurosis was then closed using a running 2 0 Polysorb suture. An additional 5 mL of Zenrelif was placed over the external oblique aponeurosis. Bere's fascia and dermis were reapproximated using interrupted 3-0 Polysorb sutures. Skin was then closed using a running subcuticular 4-0 Polysorb suture. Steri-Strips 2 x 2 gauze and Tegaderm were then applied. The patient tolerated the procedure well. Sponge, instrument, needle counts reported as correct. Patient was transferred to PACU in stable condition.
[2021-08-13 12:14] VITALS: BP 121/51; PULSE 75; RESP 16; TEMP 36.6; O2SAT 98
[2021-08-13 12:19] VITALS: BP 131/61; PULSE 66; RESP 16; O2SAT 96
[2021-08-13 12:24] VITALS: BP 135/67; PULSE 71; RESP 18; TEMP 36.3; O2SAT 96
[2021-08-13 12:29] VITALS: BP 129/66; PULSE 65; RESP 16; TEMP 36.3; O2SAT 95
[2021-08-13 12:44] VITALS: BP 113/59; PULSE 74; RESP 16; TEMP 36.1; O2SAT 97
--- NOTE | 2021-08-13 13:42 | HO.POSTANES ---
Post Anesthesia Evaluation Post Anesthesia Evaluation Vital Signs: Vital Signs Temp Pulse Resp BP Pulse Ox 08/13/21 12:44 97.0 F 74 16 113/59 L 97 08/13/21 12:29 97.4 F 65 16 129/66 95 08/13/21 12:24 97.3 F 71 18 135/67 96 08/13/21 12:19 66 16 131/61 96 08/13/21 12:14 97.9 F 75 16 121/51 L 98 08/13/21 10:42 97.2 F 53 20 128/67 97 Anesthesia: General LMA Mental Status: Awake Pain Control: Satisfactory Nausea/Vomiting: None Hydration: Adequate Anesthesia-Related Issues: No Anes. Related Issues
== END 2021-08-13 13:28 | disposition home or self-care (01) ==
PROVIDERS: PCP Internal Medicine; Visit Provider Surgery
PROC: (CPT 49507; principal; 2021-08-13 14:10)
DX: K40.30 Unilateral inguinal hernia, with obstruction, without gangrene, not specified as recurrent (principal); E03.9 Hypothyroidism, unspecified; M06.9 Rheumatoid arthritis, unspecified; Z79.899 Other long term (current) drug therapy; Z88.8 Allergy status to other drugs, medicaments and biological substances
CPT/HCPCS: 49507; C1781; C9399; J0690; J1100; J2250; J2405; J3010

== ENCOUNTER → 2021-08-21 10:29 | Outpatient (BNVA) | payer OTHER, SELFPAY | PROVIDERS: PCP Internal Medicine; Visit Provider Surgery | DX: Z13.89 Encounter for screening for other disorder (principal) ==

== ENCOUNTER → 2021-09-18 10:00 | Outpatient (BNVA) | payer OTHER, SELFPAY | PROVIDERS: PCP Internal Medicine; Visit Provider Surgery | DX: K40.30 Unilateral inguinal hernia, with obstruction, without gangrene, not specified as recurrent (principal) ==

== ENCOUNTER 2021-10-21 14:35 | Outpatient (REF) | payer OTHER, SELFPAY ==
[2021-10-21 14:51] LABS: MANUAL DIFF FLAG NO
[2021-10-21 15:37] LABS: Basophils Absolute Auto 0.1 X10*3/uL (0.0-0.2); Basophils Percent Auto 0.6 % (0-2); Eosinophils Absolute Auto 0.3 X10*3/uL (0.0-0.4); Eosinophils Percent Auto 2.8 % (0-4); Hematocrit 47.1 % (42.0-52.0); Hemoglobin 15.6 g/dl (14.0-18.0); Imm Gran Pct Auto 0.9 % (0.0-0.4); Lymphocytes Absolute Auto 1.9 X10*3/uL (1.2-4.9); Lymphocytes Percent Auto 16.3 % (20-40); Mean Corpuscular HGB Conc 33.1 g/dl (31.0-36.0); Mean Corpuscular Hemoglobin 30.2 pg (27.0-33.0); Mean Corpuscular Volume 91.3 fL (80.0-98.0); Mean Platelet Volume 10.4 fL (9.4-12.4); Monocytes Absolute Auto 0.6 X10*3/uL (0.1-1.2); Monocytes Percent Auto 5.4 % (2-11); Neutrophils Absolute Auto 8.4 x10*3/uL (2.0-8.3); Platelet Count 323 X10*3/uL (160-400); Red Blood Count 5.16 X10*6/uL (4.60-5.80); Red Cell Distribution Width 13.8 % (11.0-16.0); White Blood Count 11.4 X10*3/uL (4.8-10.8)
[2021-10-21 15:58] LABS: Lithium 0.76 mmol/L (0.60-1.20)
[2021-10-21 16:04] LABS: Alanine Aminotransferase 13 U/L (0-40); Albumin Level 4.4 g/dL (3.5-5.0); Alkaline Phosphatase 66 U/L (39-117); Anion Gap 12 (12-20); Aspartate Amino Transferase 14 U/L (5-37); Bilirubin Total 0.6 mg/dL (0.0-1.0); Blood Urea Nitrogen 11 mg/dL (9-16); Calcium 9.8 mg/dL (8.4-10.2); Carbon Dioxide 24 mmol/L (22-29); Chloride 103 mmol/L (96-108); Estimated Glomerular Filt Rate > 60; Glucose Random 144 mg/dL (60-115); Potassium 4.3 mmol/L (3.3-5.1); Sodium 135 mmol/L (135-145); Total Protein 7.7 g/dL (6.5-8.0)
[2021-10-21 16:25] LABS: Thyroid Stimulating Hormone 0.59 uIU/mL (0.32-4.0)
== END 2021-10-21 14:36 | disposition home or self-care (01) ==
LOC: HO.LAB 14:35
PROVIDERS: Visit Provider Psychiatry & Neurology Psychiatry
DX: E03.9 Hypothyroidism, unspecified (principal); Z79.899 Other long term (current) drug therapy
CPT/HCPCS: 36415; 80053; 80178; 84443; 85025

== ENCOUNTER 2022-01-28 14:38 | Inpatient (IN) | payer OTHER, SELFPAY ==
--- NOTE | 2022-01-28 | ECG_ITS ---
Test Reason : med clearance Blood Pressure : / mmHG Vent. Rate : 055 BPM Atrial Rate : 055 BPM P-R Int : 184 ms QRS Dur : 086 ms QT Int : 408 ms P-R-T Axes : 045 -22 044 degrees QTc Int : 390 ms Sinus bradycardia Otherwise normal ECG No previous ECGs available Referred By: Anastacia Mccarty Electronically Signed By:DANIEL RAYMUNDO
--- NOTE | 2022-01-28 14:53 | ED.PSYCH ---
HPI - Psych General Chief Complaint: Psychiatric Symptoms Stated Complaint: manic state admission Time Seen by Provider: 01/28/22 14:52 Source: patient Mode of arrival: EMS Limitations: no limitations History of Present Illness HPI Narrative: 66 yo male hx of bipolar managed on lithium comes in with c/o being manic and needing to get admitted. He is upset he is here and stating that he is only staying for 3 days. He is upset and states a doctor messed up two of his medications and caused this MD complaint: suicidal ideation and feels depressed Onset (ago): week(s) (couple) Duration: getting worse History of same: Yes Relieving factors: none Exacerbating factors: medication Context: new medication(s) Associated psychiatric symptoms: racing thoughts Associated symptoms: denies other symptoms Treatments prior to arrival: none Related Data Home Medications Medication Instructions Recorded Confirmed adalimumab 40 mg/0.8 mL 40 mg subcut Q2W 07/02/20 07/02/20 subcutaneous syringe kit (Humira) cyclobenzaprine 10 mg tablet 10 mg PO TID PRN Muscle Spasm 07/02/20 07/02/20 levothyroxine 50 mcg tablet 50 mcg PO DAILY 07/02/20 07/02/20 (Levoxyl) lithium carbonate 300 mg capsule 300 mg PO BEDTIME 07/02/20 07/02/20 multivitamin 1 tab PO DAILY 07/02/20 07/02/20 pantoprazole 40 mg tablet,delayed 40 mg PO DAILY 07/02/20 07/02/20 release quetiapine 400 mg tablet (Seroquel) 400 mg PO BEDTIME 07/02/20 07/02/20 Previous Rx's Medication Instructions Recorded tramadol 50 mg tablet 50 mg PO Q8H PRN pain #14 tabs 08/28/21 Allergies Allergy/AdvReac Type Severity Reaction Status Date / Time haloperidol [From HALDOL] Allergy Unknown UNKNOWN Verified 09/18/21 10:15 prednisone [PREDNISONE] Allergy Unknown UNKNOWN, Verified 09/18/21 10:15 er in psych Review of Systems Review of Systems: Constitutional : No Fever, No Chills ENT/Mouth : No Ear Pain, No Nasal Congestion, No sore throat Eyes: No Eye Pain, No Swelling, No Redness Cardiovascular : No Chest Pain, No SOB Respiratory : No Cough, No Sputum, No Dyspnea Gastrointestinal : No Nausea, No Vomiting, No Diarrhea, No Hematochezia, No Melena Genitourinary : No Dysuria, No Urinary Frequency, No Hematuria Musculoskeletal : No Myalgias Skin : No Skin Lesions, No rash Neuro : No Weakness, No Numbness, No Paresthesias, No Dizziness, No Headache Psych : positive Anxiety, no Depression, no SI/HI, pos racing thoughts Heme/Lymph: No Lymphadenopathy Endocrine : No Polyuria, No Polydipsia All other systems reviewed and are negative PMFSH Past Medical History Attestation statement: The following information was validated with the patient. Medical History Arthritis GERD (gastroesophageal reflux disease) Hiatal hernia Hx of bipolar disorder Thyroid disease Surgical History H/O colonoscopy History of dental surgery History of esophagogastroduodenoscopy (EGD) History of right inguinal hernia repair (08/13/21) Social History Social History Patient Tobacco Use Status: Current everyday Tobacco user Tobacco use type: Cigar Cigarettes Per Day: 2 Smoked in Last 30 Days: Yes Use of substances other than those prescribed or required for medical reasons: Yes Substance Use Type: Marijuana Substance Use Frequency: Daily Last Used Substance: Hours (ago) Any prior treatment program specific to substance use: No Advance Directives: No Advance Directives Information Provided: No Physical Exam Vital Signs: Vital Signs: Last Vital Signs Temp 98.4 F 01/28/22 15:09 Pulse 68 01/28/22 15:09 Resp 14 01/28/22 15:09 BP 149/78 H 01/28/22 15:09 Pulse Ox 96 01/28/22 15:09 O2 Del Method 01/28/22 15:09 BMI result Body Mass Index 27.3 Appearance: Alert. Oriented X3. No acute distress. agitated, hyperverbal, racing thoughts Eyes: Pupils equal, round and reactive to light. ENT: Pharynx normal. Neck: Normal inspection. Neck supple. CVS: Normal heart rate and rhythm. Pulses normal. Respiratory: No respiratory distress. Breath sounds normal. Abdomen: Soft and nontender. Skin: Skin warm and dry. Normal skin color. Normal skin turgor. Extremities: No lower extremity edema. No calf ttp Neuro: Oriented X 3. No motor deficit. No sensory deficit. CN2-12 intact Course Course Course Narrative: Physician observation started at 351pm. Patient placed in physician observation because the patient needed more time for CARE team to evalute for psychiatric admission. At the time observation was started the patient's vitals were stable, patient is alert and oriented but slightly agitated, Neuro: nonfocal, CV RRR, Lungs clear MDM - Psych MDM Narrative Medical decision making narrative: 66 yo male with hx of bipolar disorder here with c/o ritu after medication changes at this time will need labs, med clearance - has no medical complaints. will involve CARE team as patient states he has a bed upstairs already. Lab Data Result diagrams: 01/28/22 15:26 01/28/22 15:26 Labs: Lab Results 01/28/22 01/28/22 01/28/22 Range/Units 15:03 15:10 15:26 WBC 8.8 (4.8-10.8) X10*3/uL RBC 5.03 (4.60-5.80) X10*6/uL Hgb 15.4 (14.0-18.0) g/dl Hct 46.4 (42.0-52.0) % MCV 92.2 (80.0-98.0) fL MCH 30.6 (27.0-33.0) pg MCHC 33.2 (31.0-36.0) g/dl RDW 13.3 (11.0-16.0) % Plt Count 305 (160-400) X10*3/uL MPV 9.6 (9.4-12.4) fL Immature Gran % (Auto) 0.6 H (0.0-0.4) % Neut % (Auto) 67.8 (45-73) % Lymph % (Auto) 20.8 (20-40) % [place] % (Auto) 6.6 (2-11) % Eos % (Auto) 3.3 (0-4) % Baso % (Auto) 0.9 (0-2) % Lymph # (Auto) 1.8 (1.2-4.9) X10*3/uL [place] # (Auto) 0.6 (0.1-1.2) X10*3/uL Eos # (Auto) 0.3 (0.0-0.4) X10*3/uL Baso # (Auto) 0.1 (0.0-0.2) X10*3/uL Abs Immat Gran (auto) 0.05 H (0.00-0.03) X10*3/uL Absolute Neuts (auto) 6.0 (2.0-8.3) x10*3/uL Absolute Nucleated RBC 0.000 (0.0-0.012) X10*3/uL Nucleated RBC % (auto) 0.0 (0.0-0.2) /100WBC Sodium (135-145) mmol/L Potassium (3.3-5.1) mmol/L Chloride (96-108) mmol/L Carbon Dioxide (22-29) mmol/L Anion Gap (12-20) BUN (9-16) mg/dL Creatinine (0.5-1.4) mg/dL Estim Creat Clear Calc Estimated GFR Random Glucose (60-115) mg/dL Calcium (8.4-10.2) mg/dL Total Bilirubin (0.0-1.0) mg/dL Direct Bilirubin (0.0-0.5) mg/dL AST (5-37) U/L ALT (0-40) U/L Alkaline Phosphatase (39-117) U/L Total Protein (6.5-8.0) g/dL Albumin (3.5-5.0) g/dL Urine Opiates Screen Not Detected (Not Detect) Urine Fentanyl Screen Not Detected (Not Detect) Ur Barbiturates Screen Not Detected (Not Detect) Ur Phencyclidine Scrn Not Detected (Not Detect) Ur Amphetamines Screen Not Detected (Not Detect) U Benzodiazepines Scrn Not Detected (Not Detect) [place] (0.60-1.20) mmol/L Urine Cocaine Screen Not Detected (Not Detect) U Marijuana (THC) Screen POSITIVE H (Not Detect) Ethyl Alcohol mg/dL COVID-19 (JIGNA) Negative (Negative) COVID-19 Clin Com See Note 01/28/22 01/28/22 Range/Units 15:26 15:26 WBC (4.8-10.8) X10*3/uL RBC (4.60-5.80) X10*6/uL Hgb (14.0-18.0) g/dl Hct (42.0-52.0) % MCV (80.0-98.0) fL MCH (27.0-33.0) pg MCHC (31.0-36.0) g/dl RDW (11.0-16.0) % Plt Count (160-400) X10*3/uL MPV (9.4-12.4) fL Immature Gran % (Auto) (0.0-0.4) % Neut % (Auto) (45-73) % Lymph % (Auto) (20-40) % [place] % (Auto) (2-11) % Eos % (Auto) (0-4) % Baso % (Auto) (0-2) % Lymph # (Auto) (1.2-4.9) X10*3/uL [place] # (Auto) (0.1-1.2) X10*3/uL Eos # (Auto) (0.0-0.4) X10*3/uL Baso # (Auto) (0.0-0.2) X10*3/uL Abs Immat Gran (auto) (0.00-0.03) X10*3/uL Absolute Neuts (auto) (2.0-8.3) x10*3/uL Absolute Nucleated RBC (0.0-0.012) X10*3/uL Nucleated RBC % (auto) (0.0-0.2) /100WBC Sodium 142 (135-145) mmol/L Potassium 4.7 (3.3-5.1) mmol/L Chloride 109 H (96-108) mmol/L Carbon Dioxide 22 (22-29) mmol/L Anion Gap 16 (12-20) BUN 16 (9-16) mg/dL Creatinine 1.10 (0.5-1.4) mg/dL Estim Creat Clear Calc 68.5 Estimated GFR > 60 Random Glucose 110 (60-115) mg/dL Calcium 9.8 (8.4-10.2) mg/dL Total Bilirubin 0.4 (0.0-1.0) mg/dL Direct Bilirubin < 0.2 (0.0-0.5) mg/dL AST 17 (5-37) U/L ALT 12 (0-40) U/L Alkaline Phosphatase 59 (39-117) U/L Total Protein 7.7 (6.5-8.0) g/dL Albumin 4.4 (3.5-5.0) g/dL Urine Opiates Screen (Not Detect) Urine Fentanyl Screen (Not Detect) Ur Barbiturates Screen (Not Detect) Ur Phencyclidine Scrn (Not Detect) Ur Amphetamines Screen (Not Detect) U Benzodiazepines Scrn (Not Detect) [place] 0.30 L (0.60-1.20) mmol/L Urine Cocaine Screen (Not Detect) U Marijuana (THC) Screen (Not Detect) Ethyl Alcohol < 10 mg/dL COVID-19 (JIGNA) (Negative) COVID-19 Clin Com Discharge Plan Discharge Clinical Impression: Bipolar disorder Qualifiers: Active/Remission status: currently active Current bipolar episode type: manic Current episode severity: moderate Qualified Code(s): F31.12 - Bipolar disorder, current episode manic without psychotic features, moderate Patient Disposition: Still a Patient Prescriptions: No Action tramadol 50 mg tablet 50 mg PO Q8H PRN (Reason: pain) Qty: 14 0RF multivitamin Tablet 1 tab PO DAILY cyclobenzaprine 10 mg Tablet 10 mg PO TID PRN (Reason: Muscle Spasm) lithium carbonate 300 mg Capsule 300 mg PO BEDTIME levothyroxine [Levoxyl] 50 mcg Tablet 50 mcg PO DAILY pantoprazole 40 mg Tablet,Delayed Release (Dr/Ec) 40 mg PO DAILY Humira 40 mg/0.8 mL Syringe Kit 40 mg SUBCUT Q2W quetiapine [Seroquel] 400 mg Tablet 400 mg PO BEDTIME
[2022-01-28 15:09] VITALS: BP 149/78; PULSE 68; RESP 14; TEMP 36.9; O2SAT 96; BMI 27.3
[2022-01-28] MEDS: Nicotine Polacrilex 2 MG GUM BUCCAL (15:29)
[2022-01-28 15:30] LABS: MANUAL DIFF FLAG NO
[2022-01-28 15:31] LABS: Amphetamine Screen Urine Not Detected (Not Detect); Barbiturates, Urine Not Detected (Not Detect); Benzodiazepines Screen Urine Not Detected (Not Detect); Cannabinoid Screen Urine POSITIVE (Not Detect); Cocaine Screen Urine Not Detected (Not Detect); Fentanyl, urine Not Detected (Not Detect); Opiate Screen Urine Not Detected (Not Detect); Phencyclidine Screen Urine Not Detected (Not Detect)
[2022-01-28 15:32] LABS: Basophils Absolute Auto 0.1 X10*3/uL (0.0-0.2); Basophils Percent Auto 0.9 % (0-2); Eosinophils Absolute Auto 0.3 X10*3/uL (0.0-0.4); Eosinophils Percent Auto 3.3 % (0-4); Hematocrit 46.4 % (42.0-52.0); Hemoglobin 15.4 g/dl (14.0-18.0); Imm Gran Abs Auto 0.05 X10*3/uL (0.00-0.03); Imm Gran Pct Auto 0.6 % (0.0-0.4); Lymphocytes Absolute Auto 1.8 X10*3/uL (1.2-4.9); Lymphocytes Percent Auto 20.8 % (20-40); Mean Corpuscular HGB Conc 33.2 g/dl (31.0-36.0); Mean Corpuscular Hemoglobin 30.6 pg (27.0-33.0); Mean Corpuscular Volume 92.2 fL (80.0-98.0); Mean Platelet Volume 9.6 fL (9.4-12.4); Monocytes Absolute Auto 0.6 X10*3/uL (0.1-1.2); Monocytes Percent Auto 6.6 % (2-11); Neutrophils Percent Auto 67.8 % (45-73); Platelet Count 305 X10*3/uL (160-400); Red Blood Count 5.03 X10*6/uL (4.60-5.80); Red Cell Distribution Width 13.3 % (11.0-16.0); White Blood Count 8.8 X10*3/uL (4.8-10.8)
[2022-01-28 15:37] LABS: COVID-19 Test Negative (Negative); IDNOW Serial# 16C4AD1C
[2022-01-28 15:49] LABS: Alanine Aminotransferase 12 U/L (0-40); Albumin Level 4.4 g/dL (3.5-5.0); Alkaline Phosphatase 59 U/L (39-117); Anion Gap 16 (12-20); Aspartate Amino Transferase 17 U/L (5-37); Bilirubin Direct < 0.2 mg/dL (0.0-0.5); Bilirubin Total 0.4 mg/dL (0.0-1.0); Blood Urea Nitrogen 16 mg/dL (9-16); Calcium 9.8 mg/dL (8.4-10.2); Carbon Dioxide 22 mmol/L (22-29); Chloride 109 mmol/L (96-108); Creatinine Clr Calc Pharmacy 68.5; Estimated Glomerular Filt Rate > 60; Ethanol < 10 mg/dL; Glucose Random 110 mg/dL (60-115); Potassium 4.7 mmol/L (3.3-5.1); Sodium 142 mmol/L (135-145); Total Protein 7.7 g/dL (6.5-8.0)
--- NOTE | 2022-01-28 16:47 | PC.NURSE ---
pt has brought in a pill bottle from home that is a mixture of medications, pharmacy is aware and will give to nursing staff when he transfers to .
--- NOTE | 2022-01-28 16:52 | PHA.MEDREC ---
Pharmacy Consult ? Medication Reconciliation Pharmacy has completed the medication reconciliation. Patient is very rude, making threats. States we are trying to kill him and he has been on lithium for 30 years. States they started abilify and lamictal which he will not take. states they messed with lithium. he takes all the meds i put on the list all at bedtime Donny
--- NOTE | 2022-01-28 20:11 | PC.NURSE ---
Pt called and upset regarding not having an update on her status. Notified JACQUI Fernandez. RN providing care did call her and give her an update.
[2022-01-29] VITALS: BP 170/82; PULSE 55; RESP 18; TEMP 36.3; O2SAT 90
[2022-01-29] MEDS: QUEtiapine Fumarate 100 MG TABLET PO ×3 (00:42→23:16)
[2022-01-29] MEDS: Lithium Carbonate 300 MG CAPSULE 900 MG PO ×2 (00:42→20:08)
--- NOTE | 2022-01-29 01:14 | PC.NURSE ---
Patient angry that he was admitted to and feels that his tricked him. Patient signed a 3 day notice which is up Thursday, February 03, 2022.
[2022-01-29 01:45] VITALS: BP 154/93
--- NOTE | 2022-01-29 05:12 | PC.ADMIT ---
Admission Note: Pt arrived on unit at 2230 from ER. Pt is a 66yo male on a conditional voluntary commitment for ritu. Pt has long history of bipolar. [place] was discontinued by his psychiatrist due to elevated renal function per patient. Pt has been in a manic state since the medication change and recently loss job of 15 yrs at [employer] due to his behavior. Pt is AAOx4. Initially angry, hostile, loud and agitated upon arrival on the unit. Demanding to leave and insisting he does not belong here. Pt labile. Easily verbally redirected. Became calmer and appropriately verbalized thoughts and feelings to this nurse. Cooperative with admission process. Denies SI/HI/AH/VH. Contracts for safety. PMH: Rheumatoid arthritis and takes prescribed medical marijuana per pt. Smokes 2 cigars a day. Drinks ETOH occasionally. Has calluses on bilat feet. Bp elevated on admission: 170/82 at 12am and 154/93 at 1:45am. Denies chest pain or discofort. Pt awake all night. Quietly walking the unit. Showered this am. Maintained on Q15 min checks. NAD. Will continue to monitor.
[2022-01-29 06:00] VITALS: BP 126/60; PULSE 64; RESP 16; TEMP 36.4; O2SAT 95
[2022-01-29 07:00] VITALS: BMI 26.5
[2022-01-29 10:09] LABS: Alanine Aminotransferase 16 U/L (0-40); Albumin Level 4.7 g/dL (3.5-5.0); Alkaline Phosphatase 64 U/L (39-117); Anion Gap 15 (12-20); Aspartate Amino Transferase 21 U/L (5-37); Bilirubin Total 0.4 mg/dL (0.0-1.0); Blood Urea Nitrogen 18 mg/dL (9-16); Carbon Dioxide 26 mmol/L (22-29); Chloride 102 mmol/L (96-108); Cholesterol 237 mg/dL; Creatinine Clr Calc Pharmacy 63.8; Estimated Glomerular Filt Rate > 60; Glucose Fasting 147 mg/dL (60-99); HDL Cholesterol 56 mg/dL; LDL Cholesterol Calculated 153 mg/dl; Potassium 4.9 mmol/L (3.3-5.1); Sodium 138 mmol/L (135-145); Total Protein 8.4 g/dL (6.5-8.0); Triglycerides 141 mg/dL
[2022-01-29 10:17] LABS: Calcium 10.7 mg/dL (8.4-10.2)
[2022-01-29 18:00] VITALS: BP 126/79; PULSE 78; RESP 16; TEMP 36.6; O2SAT 98
[2022-01-29] MEDS: lamoTRIgine 100 MG TABLET PO (20:08)
[2022-01-29] MEDS: Levothyroxine Sodium 175 MCG TABLET PO (20:08)
[2022-01-29] MEDS: Omeprazole 20 MG CAPSULE.DR PO (20:09)
[2022-01-29] MEDS: Omeprazole 40 MG CAPSULE.DR PO (20:11)
--- NOTE | 2022-01-30 00:09 | HO.PSYADMNOT ---
HPI Date of Service: 01/29/22 Chief Complaint: Ritu Sources of Information: patient interviewed, chart reviewed and crisis/core team assessment reviewed Additional Sources of Information: Pt refused contact with his . Emergent message left with Dr. Cobos [phone] to discuss concerns about [place]. Pt refuses to stop this- I would rather go on dialysis than lose my mind. HPI Subjective Notes: [place] Warning, Conditional Voluntary and 3 Day (02/03/22) Healthcare Proxy: No Guardianship: No Medical Problems Affecting Mental Status: No Narrative: 66 yo male, history of bipolar disorder presents with increased symptoms of ritu over the past two weeks. contacted police on 01/28 for assist. 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 tells crisis pt has also been going to the casino and drinking (he does neither on a regular basis). Behaviors have been described as strange and bizarre and judgment and insight are poor. Behaviors have been impulsive. Met with pt who demanded to view his paperwork-shared with pt. He reports that he and are in great conflict/discord. He reports that items contained in crisis report have been taken out of context and are inaccurate. He presents with significant anger, lability, difficulty in calming himself. Ability to reason is poor. Pt reports that he has been harmed by the medical community for having a diagnosis of bipolar disorder and feels discriminated against due to this diagnosis. Pt became angry when we discussed plan of care, leaving the meeting, returning and leaving when he was told he was not being discharged today. Past Psychiatric History: IP: Fifteen years ago . OP: Dr. Cobos [phone]. Message left x 2. Dr. Cobos left a message as well. Trials: I am no longer a guinea pig for your pills SA: Denies Med List-Provided by pt's -Cyclobenzaprine 10 mg tid prn -Humira injection biweekly, due 02/05/22. -Pantoprazole 40 mg daily -Levothyroxine daily -Seroquel 1-2 tabs HS -Lamictal 100 mg HS -Vraylar-pt takes in beverages per not knowing to him. [place]-needs to be d/c however pt refuses. Message left for Dr. Cobos. [phone] fax [phone]. BUN18, Creatinine 1.18, Creatinine Clearance 63.8 (61-107), GFR 60 Medical Evaluation Reviewed: Yes [facility] Medical History Arthritis GERD (gastroesophageal reflux disease) Hiatal hernia Hx of bipolar disorder Thyroid disease Surgical History H/O colonoscopy History of dental surgery History of esophagogastroduodenoscopy (EGD) History of right inguinal hernia repair (08/13/21) Family History: Denies Social History: Born in [place] Parents and brother, (Aaron-2019 of a brain tumor) have - 3 brothers 1 sister are living Works in sales Substance History: Infrequent alcohol when he does go to the [employer] Trauma History: Affirms -losses of family -diagnosis of bipolar disorder Diagnostics Vital Signs (24Hr): Vital Signs - 24 hr 01/29/22 01:45 01/29/22 06:00 01/29/22 18:00 Temperature 97.6 F 97.8 F Pulse Rate 64 78 Respiratory Rate 16 16 Blood Pressure 154/93 H 126/60 126/79 Pulse Oximetry 95 98 Oxygen Delivery Method Room Air Room Air BMI result Body Mass Index 26.5 Labs Results: 01/28/22 15:26 01/29/22 09:24 Labs: Laboratory Results - last 48 hr 01/28/22 01/28/22 01/28/22 15:03 15:10 15:26 WBC 8.8 RBC 5.03 Hgb 15.4 Hct 46.4 MCV 92.2 MCH 30.6 MCHC 33.2 RDW 13.3 Plt Count 305 MPV 9.6 Immature Gran % (Auto) 0.6 H Neut % (Auto) 67.8 Lymph % (Auto) 20.8 [place] % (Auto) 6.6 Eos % (Auto) 3.3 Baso % (Auto) 0.9 Lymph # (Auto) 1.8 [place] # (Auto) 0.6 Eos # (Auto) 0.3 Baso # (Auto) 0.1 Abs Immat Gran (auto) 0.05 H Absolute Neuts (auto) 6.0 Absolute Nucleated RBC 0.000 Nucleated RBC % (auto) 0.0 Sodium Potassium Chloride Carbon Dioxide Anion Gap BUN Creatinine Estim Creat Clear Calc Estimated GFR Random Glucose Fasting Glucose Calcium Total Bilirubin Direct Bilirubin AST ALT Alkaline Phosphatase Total Protein Albumin Triglycerides Cholesterol LDL Cholesterol, Calc HDL Cholesterol Urine Opiates Screen Not Detected Urine Fentanyl Screen Not Detected Ur Barbiturates Screen Not Detected Ur Phencyclidine Scrn Not Detected Ur Amphetamines Screen Not Detected U Benzodiazepines Scrn Not Detected [place] Urine Cocaine Screen Not Detected U Marijuana (THC) Screen POSITIVE H Ethyl Alcohol COVID-19 (JIGNA) Negative COVID-19 Clin Com See Note 01/28/22 01/28/22 01/29/22 15:26 15:26 09:24 WBC RBC Hgb Hct MCV MCH MCHC RDW Plt Count MPV Immature Gran % (Auto) Neut % (Auto) Lymph % (Auto) [place] % (Auto) Eos % (Auto) Baso % (Auto) Lymph # (Auto) [place] # (Auto) Eos # (Auto) Baso # (Auto) Abs Immat Gran (auto) Absolute Neuts (auto) Absolute Nucleated RBC Nucleated RBC % (auto) Sodium 142 138 Potassium 4.7 4.9 Chloride 109 H 102 Carbon Dioxide 22 26 Anion Gap 16 15 BUN 16 18 H Creatinine 1.10 1.18 Estim Creat Clear Calc 68.5 63.8 Estimated GFR > 60 > 60 Random Glucose 110 Fasting Glucose 147 H Calcium 9.8 10.7 H D Total Bilirubin 0.4 0.4 Direct Bilirubin < 0.2 AST 17 21 ALT 12 16 Alkaline Phosphatase 59 64 Total Protein 7.7 8.4 H Albumin 4.4 4.7 Triglycerides 141 Cholesterol 237 LDL Cholesterol, Calc 153 HDL Cholesterol 56 Urine Opiates Screen Urine Fentanyl Screen Ur Barbiturates Screen Ur Phencyclidine Scrn Ur Amphetamines Screen U Benzodiazepines Scrn [place] 0.30 L Urine Cocaine Screen U Marijuana (THC) Screen Ethyl Alcohol < 10 COVID-19 (JIGNA) COVID-19 Clin Com Meds/Allergies Meds Home Medications Medication Instructions Recorded Confirmed Type adalimumab 40 mg/0.8 mL 40 mg subcut Q2W 07/02/20 01/28/22 History subcutaneous syringe kit (Humira) pantoprazole 40 mg tablet,delayed 40 mg PO BEDTIME 07/02/20 01/28/22 History release levothyroxine 175 mcg tablet 1 tab PO BEDTIME 01/28/22 01/28/22 History lithium carbonate 300 mg tablet 900 mg PO BEDTIME 01/28/22 01/28/22 History quetiapine 100 mg tablet 1 tab PO BEDTIME 01/28/22 01/28/22 History Allergies Allergies Allergy/AdvReac Type Severity Reaction Status Date / Time haloperidol [From HALDOL] Allergy Unknown UNKNOWN Verified 09/18/21 10:15 prednisone [PREDNISONE] Allergy Unknown UNKNOWN, Verified 09/18/21 10:15 er in psych Mental Status Exam Mental Status Exam Patient Appearance: Fatigued Patient Orientation: Person, Place, Time and Situation Level of Consciousness: Alert Patient Behavior: Talkative, Suspicious, Aggressive, Avoidant and Good Eye Contact Mood Description: Hostile, Labile and Angry Affect Description: Labile Patient Cognition Impaired: No Ability to Follow Directions: Good Speech Pattern: Spontaneous Speech Memory Description: Episodic Impaired Hallucinations: None Delusions: Being Controlled and Paranoid Ideation Thought Process: Racing, Illogical and Rumination Thought Content: positive for Racing and positive for Perseveration Depressive Symptoms: Increased Irritability, Difficulty Sleeping, Unhappiness and Thoughts of /Suicide (deneis) Abnormal Motor Activity Signs and Symptoms: Agitation and Restlessness Judgement: Poor Assessment & Plan Assessment & Plan (1) Bipolar disorder: Status: Acute Qualifiers: Active/Remission status: currently active Current bipolar episode type: manic Current episode severity: moderate Qualified Code(s): F31.12 - Bipolar disorder, current episode manic without psychotic features, moderate Code(s): F31.9 - Bipolar disorder, unspecified Assessment and Plan: 66 yo male, history of bipolar disorder, currently with ritu for approximately 2 weeks, with anger, which caused him to lose his job. Message left for Dr. Cobos to discuss plan of care as pt recently was tapered from [place], which he disagrees with. Plan: Collateral contacts-pt refuses at this time Diagnostics Seroquel prn Continue current regime until we have input from Dr. Cobos. Urine culture Patient educated on: therapeutic strategies Informed Consent: further education needed Reason for continued inpatient stay Substantial Risk for: inability to function and rapid decompensation
[2022-01-30 09:52] VITALS: BP 167/92; PULSE 85; RESP 18; TEMP 36.6; O2SAT 97
[2022-01-30] MEDS: Nicotine Polacrilex 2 MG GUM BUCCAL (12:09)
--- NOTE | 2022-01-30 16:49 | HO.PSYCHPN ---
Subjective Subjective Date of Service: 01/30/22 Reason For Visit: Imelda Subjective Notes: 3 Day Healthcare Proxy: No Guardianship: No Medical Problems Affecting Mental Status: No Interim History: Intense anger, lability. Feeling deceived by OP Team and family. They changed medications on me and I was not informed. States he would rather risk renal failure than struggle with mood dysregulation. Education attempted. Will consider OP renal consult so he is completely informed. I was put on the right medicine here years ago and now I am here because of deceit. Angry with tw as he cannot discharge immediately. Believes he is jailed. Multiple threats of lawsuit, significant verbal abuse. Redirected consistently. Pt's provider, Dr. Cobos returned call to tw. Pt is welcome to transfer to another provider, however [place] will not be continued with this out pt team. Informed Dr. Cobos that pt has declined Vraylar as well. Medication Compliance: Intermittent Side effects from medications: No Attending Groups: No Review of Systems Acute medical concerns: Yes Renal impairment from jail [place] Medical Review of Systems: unchanged Mental Status Exam Mental Status Exam Patient Appearance: Appropriate Patient Orientation: Person, Place, Time and Situation Level of Consciousness: Alert Patient Behavior: Talkative, Suspicious, Aggressive, Belligerent, Verbal Threats, Resistive to Care, Avoidant and Good Eye Contact Mood Description: Hostile, Labile and Angry Affect Description: Hostile, Labile and Angry Patient Cognition Impaired: No Ability to Follow Directions: Good Speech Pattern: Spontaneous Speech Memory Description: Episodic Impaired Hallucinations: None Delusions: Being Controlled and Paranoid Ideation Thought Process: Racing, Illogical and Rumination Thought Content: positive for [place] and positive for Perseveration Depressive Symptoms: Increased Irritability, Difficulty Sleeping, Unhappiness and Thoughts of /Suicide (deneis) Abnormal Motor Activity Signs and Symptoms: Agitation and Restlessness Judgement: Poor Diagnostics Vital Signs (24Hr): Vital Signs - 24 hr 01/29/22 18:00 01/30/22 09:52 Temperature 97.8 F 97.8 F Pulse Rate 78 85 Respiratory Rate 16 18 Blood Pressure 126/79 167/92 H Pulse Oximetry 98 97 Oxygen Delivery Method Room Air Room Air BMI result Body Mass Index 26.5 Labs Results: 01/28/22 15:26 01/29/22 09:24 Labs: Laboratory Results - last 48 hr 01/29/22 09:24 Sodium 138 Potassium 4.9 Chloride 102 Carbon Dioxide 26 Anion Gap 15 BUN 18 H Creatinine 1.18 Estim Creat Clear Calc 63.8 Estimated GFR > 60 Fasting Glucose 147 H Calcium 10.7 H D Total Bilirubin 0.4 AST 21 ALT 16 Alkaline Phosphatase 64 Total Protein 8.4 H Albumin 4.7 Triglycerides 141 Cholesterol 237 LDL Cholesterol, Calc 153 HDL Cholesterol 56 Medications Medications Current Medications Acetaminophen (Acetaminophen 325 Mg Tablet) 650 mg PO Q6H PRN PRN Reason: Headache/Pain Mild Scale (1-3) Al Hydroxide/Mg Hydroxide (Magnesium Hydrox/Alum Hydrox 30 Ml Oral.Susp) 30 ml PO Q6H PRN PRN Reason: Heartburn/Nausea Cyclobenzaprine HCl (Cyclobenzaprine Hcl 10 Mg Tablet) 10 mg PO TID PRN PRN Reason: muscle spasm, pain Hydroxyzine HCl (Hydroxyzine Hcl 25 Mg Tablet) 25 mg PO Q6H PRN PRN Reason: Anxiety Lamotrigine (Lamotrigine 100 Mg Tablet) [address] [facility] Last Admin: 01/29/22 20:08 Dose: 100 mg Levothyroxine Sodium (Levothyroxine Sodium 175 Mcg Tablet) 175 mcg PO BEDTIME [place] Last Admin: 01/29/22 20:08 Dose: 175 mcg [place] Carbonate ([place] Carbonate 300 Mg Capsule) [address] [facility] Last Admin: 01/29/22 20:08 Dose: 900 mg Magnesium Hydroxide (Milk Of Magnesia 30 Ml Oral.Susp) 30 ml PO DAILY PRN PRN Reason: Constipation Nicotine Polacrilex (Nicotine Polacrilex 2 Mg Gum) 2 mg BUCCAL Q1H PRN PRN Reason: Nicotine Cravings Last Admin: 01/30/22 12:09 Dose: 2 mg Omeprazole (Omeprazole 40 Mg Capsule.Dr) [address] [facility] Last Admin: 01/29/22 20:11 Dose: 40 mg Pharmacy Consult (Consult Rx Perform Med Rec) 1 each MISCELLANE ONCE PRN PRN Reason: Consult order Quetiapine Fumarate (Quetiapine Fumarate 100 Mg Tablet) 100 mg PO BID PRN PRN Reason: imelda, agitation Last Admin: 01/29/22 23:16 Dose: 100 mg Trazodone HCl (Trazodone Hcl 50 Mg Tablet) 50 mg PO BEDTIME PRN PRN Reason: Insomnia Allergies Allergies Allergy/AdvReac Type Severity Reaction Status Date / Time haloperidol [From HALDOL] Allergy Unknown UNKNOWN Verified 09/18/21 10:15 prednisone [PREDNISONE] Allergy Unknown UNKNOWN, Verified 09/18/21 10:15 er in psych Assessment & Plan Assessment & Plan (1) Bipolar disorder: Qualifiers: Active/Remission status: currently active Current bipolar episode type: manic Current episode severity: moderate Qualified Code(s): F31.12 - Bipolar disorder, current episode manic without psychotic features, moderate Status: Acute Code(s): F31.9 - Bipolar disorder, unspecified Assessment and Plan: 66 yo male, history of bipolar disorder, currently with imelda for approximately 2 weeks, with anger, which caused him to lose his job. Message left for Dr. Cobos to discuss plan of care as pt recently was tapered from [place], which he disagrees with. Plan: Collateral contacts-pt refuses at this time Diagnostics Seroquel prn Continue current regime until we have input from Dr. Cobos. Urine culture 01/30- Pt declines Vraylar, asks to continue [place]. Expressing anger, labile mood today. Education attempted OP Provider states pt can transfer to another provider if he disagrees with plan of care. I spent minutes with the patient and/or on the patient floor today, greater than?50% of which was spent counseling/coordinating care. Reason for contiued inpatient stay Substantial Risk for: harm to self, harm to others, inability to function, rapid decompensation and med/psych decompensation
[2022-01-30 18:00] VITALS: BP 132/70; PULSE 59; RESP 16; TEMP 36.8; O2SAT 97
[2022-01-30] MEDS: Lithium Carbonate 300 MG CAPSULE 900 MG PO (19:47)
[2022-01-30] MEDS: Omeprazole 40 MG CAPSULE.DR PO (19:48)
[2022-01-30] MEDS: Levothyroxine Sodium 175 MCG TABLET PO (19:48)
[2022-01-30] MEDS: traZODone HCL 50 MG TABLET PO (20:44)
[2022-01-30] MEDS: QUEtiapine Fumarate 100 MG TABLET PO (23:33)
[2022-01-31] MEDS: Cyclobenzaprine HCl 10 MG TABLET PO (04:01)
[2022-01-31] MEDS: Acetaminophen 325 MG TABLET 650 MG PO (05:15)
--- NOTE | 2022-01-31 05:24 | PC.NURSE ---
PT WAS AWAKE THROUGHOUT THE ENTIRE NIGHT. PT WAS PACING THE HALLWAY, YELLING AT STAFF. PT WAS NOT REDIRECTABLE. PT WAS ANGRY REGARDING POLICIES, STATING I WILL RYAN THIS PLACE AND WIN IN 5 SECONDS , YOU FUCKING PEOPLE DONT TREAT ANYTHING. IM IN PAIN. WHAT THE FUCK IS YOUR PROBLEMS . PT WAS SLAMMING HIS BEDROOM DOOR FREQUENTLY. PT WAS GIVEN PRN MEDS FOR PAIN BUT REFUSING PRN MEDS FOR AGITATION/ANXIETY. PT DID NOT SLEEP. PT ATTEMPTED TO USE THE PHONE AND WAS MAD WHEN HE WAS TOLD PHONES ARE NOT ON. PT STATED EVERY FUCKING BULLSHIT ANSWER YOU GIVE ME, ILL GIVE YOU A BETTER ONE. DONT COME AT ME WITH YOUR [employer] POLICY THAT COULD BE CHANGED. WHY DONT HAVE YOU HAVE DIGNITY AND NOT FOLLOW THE RULES SO STRICTLY AND CREATE SOME CHANGE . PT CONTINUED TO YELL AT RN AND OTHER STAFF BY THE NURSES STATION. PT WAS TOLD TO STEP AWAY FROM THE NURSES STATION AT WHICH TIME HE WALKED AWAY, MUMBLING UNDER HIS BREATH THAT THIS PLACE IS ABSOLUTE BULLSHIT .
[2022-01-31 09:47] VITALS: BP 147/80; PULSE 73; RESP 20; TEMP 36.7; O2SAT 97
[2022-01-31] MEDS: Nicotine 21 MG PATCH.TD24 TRANSDERMA (14:52)
[2022-01-31 18:00] VITALS: BP 161/91; PULSE 72; TEMP 36.8; O2SAT 98
[2022-02-01] MEDS: Acetaminophen 325 MG TABLET 650 MG PO (04:03)
[2022-02-01] MEDS: Nicotine 21 MG PATCH.TD24 TRANSDERMA (08:33)
--- NOTE | 2022-02-01 09:01 | HO.PSYCHPN ---
Subjective Subjective Date of Service: 01/31/22 Reason For Visit: Imelda Subjective Notes: 3 Day Interim History: Brief meeting with pt. He will accept renal consult upon discharge. Discussed how we can prepare him to make more informed decisions on medications. Discussed resources. Mood improved with more stability. Continues to talk of his circumstances and his anger. In milieu, visable, interactive, less lability seen today. Medication Compliance: Yes Side effects from medications: No Attending Groups: Yes Review of Systems Acute medical concerns: No Medical Review of Systems: unchanged Mental Status Exam Mental Status Exam Patient Appearance: Appropriate Patient Orientation: Person, Place, Time and Situation Level of Consciousness: Alert Patient Behavior: Appropriate, Talkative and Good Eye Contact Mood Description: Sad Affect Description: Flat Patient Cognition Impaired: No Ability to Follow Directions: Good Speech Pattern: Spontaneous Speech Memory Description: Episodic Impaired Hallucinations: None Thought Process: Rumination Thought Content: positive for Perseveration Depressive Symptoms: Unhappiness and Thoughts of /Suicide (deneis) Abnormal Motor Activity Signs and Symptoms: Restlessness Judgement: Fair Diagnostics Vital Signs (24Hr): Vital Signs - 24 hr 01/31/22 09:47 01/31/22 18:00 Temperature 98.1 F 98.2 F Pulse Rate 73 72 Respiratory Rate 20 Blood Pressure 147/80 H 161/91 H Pulse Oximetry 97 98 Oxygen Delivery Method Room Air Room Air BMI result Body Mass Index 26.5 Labs Results: 01/28/22 15:26 01/29/22 09:24 Medications Medications Current Medications Acetaminophen (Acetaminophen 325 Mg Tablet) 650 mg PO Q6H PRN PRN Reason: Headache/Pain Mild Scale (1-3) Last Admin: 02/01/22 04:03 Dose: 650 mg Al Hydroxide/Mg Hydroxide (Magnesium Hydrox/Alum Hydrox 30 Ml Oral.Susp) 30 ml PO Q6H PRN PRN Reason: Heartburn/Nausea Cyclobenzaprine HCl (Cyclobenzaprine Hcl 10 Mg Tablet) 10 mg PO TID PRN PRN Reason: muscle spasm, pain Last Admin: 01/31/22 04:01 Dose: 10 mg Hydroxyzine HCl (Hydroxyzine Hcl 25 Mg Tablet) 25 mg PO Q6H PRN PRN Reason: Anxiety Lamotrigine (Lamotrigine 100 Mg Tablet) 100 mg PO BEDTIME [facility] Last Admin: 02/01/22 00:27 Dose: Not Given Levothyroxine Sodium (Levothyroxine Sodium 175 Mcg Tablet) 175 mcg PO BEDTIME [facility] Last Admin: 02/01/22 00:28 Dose: Not Given [place] Carbonate ([place] Carbonate 300 Mg Capsule) 900 mg PO BEDTIME [facility] Last Admin: 01/30/22 19:47 Dose: 900 mg Magnesium Hydroxide (Milk Of Magnesia 30 Ml Oral.Susp) 30 ml PO DAILY PRN PRN Reason: Constipation Nicotine (Nicotine 21 Mg Patch.Td24) 21 mg TRANSDERMA DAILY [facility] Last Admin: 02/01/22 08:33 Dose: 21 mg Nicotine Polacrilex (Nicotine Polacrilex 2 Mg Gum) 2 mg BUCCAL Q1H PRN PRN Reason: Nicotine Cravings Last Admin: 01/30/22 12:09 Dose: 2 mg Omeprazole (Omeprazole 40 Mg Capsule.Dr) 40 mg PO BEDTIME [facility] Last Admin: 02/01/22 00:28 Dose: Not Given Pharmacy Consult (Consult Rx Perform Med Rec) 1 each MISCELLANE ONCE PRN PRN Reason: Consult order Quetiapine Fumarate (Quetiapine Fumarate 100 Mg Tablet) 100 mg PO BID PRN PRN Reason: imelda, agitation Last Admin: 01/30/22 23:33 Dose: 100 mg Trazodone HCl (Trazodone Hcl 50 Mg Tablet) 50 mg PO BEDTIME PRN PRN Reason: Insomnia Last Admin: 01/30/22 20:44 Dose: 50 mg Allergies Allergies Allergy/AdvReac Type Severity Reaction Status Date / Time haloperidol [From HALDOL] Allergy Unknown UNKNOWN Verified 09/18/21 10:15 prednisone [PREDNISONE] Allergy Unknown UNKNOWN, Verified 09/18/21 10:15 er in psych Assessment & Plan Assessment & Plan (1) Bipolar disorder: Qualifiers: Active/Remission status: currently active Current bipolar episode type: manic Current episode severity: moderate Qualified Code(s): F31.12 - Bipolar disorder, current episode manic without psychotic features, moderate Status: Acute Code(s): F31.9 - Bipolar disorder, unspecified Assessment and Plan: 66 yo male, history of bipolar disorder, currently with imelda for approximately 2 weeks, with anger, which caused him to lose his job. Message left for Dr. Cobos to discuss plan of care as pt recently was tapered from [place], which he disagrees with. Plan: Collateral contacts-pt refuses at this time Diagnostics Seroquel prn Continue current regime until we have input from Dr. Cobos. Urine culture 01/30- Pt declines Vraylar, asks to continue [place]. Expressing anger, labile mood today. Education attempted OP Provider states pt can transfer to another provider if he disagrees with plan of care. 01/31/22- Improved. Willing to have OP renal consult to make an informed decision regarding [place]. Open to ongoing education. Expression of anger and concerns are appropriate, clear. I spent minutes with the patient and/or on the patient floor today, greater than?50% of which was spent counseling/coordinating care. Patient educated on: medication risk/benefits and therapeutic strategies Informed Consent: further education needed Reason for contiued inpatient stay Substantial Risk for: harm to self and med/psych decompensation
[2022-02-01 10:00] VITALS: BP 148/76; PULSE 62; RESP 20; TEMP 36.8; O2SAT 98
--- NOTE | 2022-02-01 16:22 | HO.PSYCHPN ---
Subjective Subjective Date of Service: 02/01/22 Reason For Visit: Imelda Subjective Notes: 3 Day (02/03/22) Healthcare Proxy: No Guardianship: No Medical Problems Affecting Mental Status: No Interim History: Calmer, in good control at times, however, lability of mood persists along with anger and short tempered sx. Discussed anger, anger with family, OP team, anger with feeling deceived as he feels he was tricked into taking medications that he did not know he was taking. There is no more trust with anyone. As a result, he will accept only what he has been on in the past which has worked effectively for him. Review of medications- Vraylar, Lamictal he was clear about-he will not accept. [place] has worked-he has taken this for several years. He reports there is a risk to my kidneys if I continue it-but, I would rather have my mental health and take what has worked for me. Did agree to accept a consult appt with [facility], [address] [facility], [place], [place] [phone], to have a full consult for understanding of the risks of this decision. Refuses to return to Dr. Cobos. Very upset with his -offered couples meeting to begin to discuss this and trend toward resolution. He will consider. Currently, declines [facility] to speak with her in any capacity. Reports poor sleep. Discussed options-he declines. Focused on leaving as he believes he was admitted against his will and I am not committable- not suicidal, homicidal or in need of care-I can mange my own decisions. Medication Compliance: Intermittent Side effects from medications: No (Renal risks from use of [place].) Attending Groups: Intermittent Review of Systems Renal risks of longterm [place] use. Medical Review of Systems: unchanged Mental Status Exam Mental Status Exam Patient Appearance: Appropriate Patient Orientation: Person, Place, Time and Situation Level of Consciousness: Alert Patient Behavior: Talkative, Cooperative, Suspicious, Restless, Belligerent, Wandering, Resistive to Care, Avoidant, Distractible and Good Eye Contact Mood Description: Labile and Angry Affect Description: Labile and Angry Patient Cognition Impaired: No Ability to Follow Directions: Good Speech Pattern: Spontaneous Speech Memory Description: Episodic Impaired Hallucinations: None Delusions: Not Present Thought Process: Distracted and Goal Oriented Thought Content: positive for [place] and positive for Circumstantial Depressive Symptoms: Insomnia, Difficulty Sleeping, Unhappiness and Thoughts of /Suicide (denies) Abnormal Motor Activity Signs and Symptoms: Restlessness Judgement: Fair Diagnostics Vital Signs (24Hr): Vital Signs - 24 hr 01/31/22 18:00 02/01/22 10:00 Temperature 98.2 F 98.2 F Pulse Rate 72 62 Respiratory Rate 20 Blood Pressure 161/91 H 148/76 H Pulse Oximetry 98 98 Oxygen Delivery Method Room Air Room Air BMI result Body Mass Index 26.5 Labs Results: 01/28/22 15:26 01/29/22 09:24 Medications Medications Current Medications Acetaminophen (Acetaminophen 325 Mg Tablet) 650 mg PO Q6H PRN PRN Reason: Headache/Pain Mild Scale (1-3) Last Admin: 02/01/22 04:03 Dose: 650 mg Al Hydroxide/Mg Hydroxide (Magnesium Hydrox/Alum Hydrox 30 Ml Oral.Susp) 30 ml PO Q6H PRN PRN Reason: Heartburn/Nausea Cyclobenzaprine HCl (Cyclobenzaprine Hcl 10 Mg Tablet) 10 mg PO TID PRN PRN Reason: muscle spasm, pain Last Admin: 01/31/22 04:01 Dose: 10 mg Hydroxyzine HCl (Hydroxyzine Hcl 25 Mg Tablet) 25 mg PO Q6H PRN PRN Reason: Anxiety Lamotrigine (Lamotrigine 100 Mg Tablet) 100 mg PO BEDTIME [facility] Last Admin: 02/01/22 00:27 Dose: Not Given Levothyroxine Sodium (Levothyroxine Sodium 175 Mcg Tablet) 175 mcg PO BEDTIME [facility] Last Admin: 02/01/22 00:28 Dose: Not Given [place] Carbonate ([place] Carbonate 300 Mg Capsule) 900 mg PO BEDTIME [facility] Last Admin: 01/30/22 19:47 Dose: 900 mg Magnesium Hydroxide (Milk Of Magnesia 30 Ml Oral.Susp) 30 ml PO DAILY PRN PRN Reason: Constipation Nicotine (Nicotine 21 Mg Patch.Td24) 21 mg TRANSDERMA DAILY [facility] Last Admin: 02/01/22 08:33 Dose: 21 mg Nicotine Polacrilex (Nicotine Polacrilex 2 Mg Gum) 2 mg BUCCAL Q1H PRN PRN Reason: Nicotine Cravings Last Admin: 01/30/22 12:09 Dose: 2 mg Omeprazole (Omeprazole 40 Mg Capsule.Dr) 40 mg PO BEDTIME [facility] Last Admin: 02/01/22 00:28 Dose: Not Given Pharmacy Consult (Consult Rx Perform Med Rec) 1 each MISCELLANE ONCE PRN PRN Reason: Consult order Quetiapine Fumarate (Quetiapine Fumarate 100 Mg Tablet) 100 mg PO BID PRN PRN Reason: imelda, agitation Last Admin: 01/30/22 23:33 Dose: 100 mg Trazodone HCl (Trazodone Hcl 50 Mg Tablet) 50 mg PO BEDTIME PRN PRN Reason: Insomnia Last Admin: 01/30/22 20:44 Dose: 50 mg Allergies Allergies Allergy/AdvReac Type Severity Reaction Status Date / Time haloperidol [From HALDOL] Allergy Unknown UNKNOWN Verified 09/18/21 10:15 prednisone [PREDNISONE] Allergy Unknown UNKNOWN, Verified 09/18/21 10:15 er in psych Assessment & Plan Assessment & Plan (1) Bipolar disorder: Qualifiers: Active/Remission status: currently active Current bipolar episode type: manic Current episode severity: moderate Qualified Code(s): F31.12 - Bipolar disorder, current episode manic without psychotic features, moderate Status: Acute Code(s): F31.9 - Bipolar disorder, unspecified Assessment and Plan: 66 yo male, history of bipolar disorder, currently with imelda for approximately 2 weeks, with anger, which caused him to lose his job. Message left for Dr. Cobos to discuss plan of care as pt recently was tapered from [place], which he disagrees with. Plan: Collateral contacts-pt refuses at this time Diagnostics Seroquel prn Continue current regime until we have input from Dr. Cobos. Urine culture 01/30- Pt declines Vraylar, asks to continue [place]. Expressing anger, labile mood today. Education attempted OP Provider states pt can transfer to another provider if he disagrees with plan of care. 01/31/22- Improved. Willing to have OP renal consult to make an informed decision regarding [place]. Open to ongoing education. Expression of anger and concerns are appropriate, clear. 02/01/22-Labile, angry, feeling deceived. TDN 02/03/22. Declines family meeting. Declines collateral contact with . Will agree to renal consult to discuss effects of terminal operator [place] use on his renal system. Will not agree to any medication changes at this time. I spent minutes with the patient and/or on the patient floor today, greater than?50% of which was spent counseling/coordinating care. Patient educated on: diagnosis, medication risk/benefits and therapeutic strategies Informed Consent: understands and further education needed Reason for contiued inpatient stay Substantial Risk for: rapid decompensation
[2022-02-01 16:37] VITALS: BP 160/92; PULSE 72; TEMP 36.3; O2SAT 98
--- NOTE | 2022-02-01 19:54 | PC.NURSE ---
pt refused meds and has been argumentative with staff about anything he finds fault with. pt was screaming at on telephone earlier in day.
[2022-02-01] MEDS: Levothyroxine Sodium 175 MCG TABLET PO ×2 (20:50→20:52)
[2022-02-01] MEDS: Omeprazole 40 MG CAPSULE.DR PO ×2 (20:50→20:52)
[2022-02-01] MEDS: QUEtiapine Fumarate 100 MG TABLET PO (20:52)
[2022-02-01] MEDS: Lithium Carbonate 300 MG CAPSULE 900 MG PO (20:52)
[2022-02-02] MEDS: QUEtiapine Fumarate 100 MG TABLET PO (03:04)
[2022-02-02 06:00] VITALS: BP 136/80; PULSE 80; RESP 18; TEMP 36.8; O2SAT 96
--- NOTE | 2022-02-02 06:05 | PC.NURSE ---
PT WAS UNABLE TO SLEEP ALL NIGHT AND REFUSED PRN MEDS. PT WAS VERBALLY ABUSIVE TOWARDS STAFF ON MULTIPLE OCCASIONS. PT STATED WHAT ARE YOU FUCKING STUPID? I ALREADY TOLD YOU I CANT TAKE THOSE MEDS . PT REPEATEDLY CALLED RNS ASSHOLES . PT SCREAMED AT RNS MULTIPLE TIMES THROUGHOUT THE NIGHT. WHEN PT WAS ASKED TO NOT GO INTO OTHER PTS ROOMS, HE STATED YOURE REALLY STARTING TO PISS ME OFF, WHY DONT YOU NOT FUCKING LOOK AT ME, BITCH . PT TOLD STAFF ILL START STARING AT YOU LIKE YOU DO TO ME BUT ID RATHER THAN BEAR LOOKING AT YOU . PT REPEATEDLY POSTURED TOWARDS RN BUT WAS REDIRECTABLE. PT SHOWERED TWICE ON THIS SHIFT. PT WAS TRYING TO PULL ON THE DOOR HANDLES, STATING THAT HE IS GOING TO LEAVE THE UNIT AND GO HOME. PT YELLED AT RN WHEN TOLD HE COULD NOT LEAVE THE UNIT. PT REPEATEDLY STATED NO ONE FUCKING CARES BECAUSE IM A PSYCH PATIENT. IF I WERE A MEDICAL PATIENT, MAYBE SOMEONE WOULD HELP ME BUT YOU GUYS DONT DO SHIT AROUND HERE . PT WAS FIXATED ON STAFF GOING TO HELL. PT PACED THE UNIT THE WHOLE NIGHT. PT ASKED THE SAME QUESTIONS REPEATEDLY ABOUT POLICIES THEN TOLD STAFF WHY DONT YOU NOT FOLLOW THE RULES IF THEY ARE THIS STUPID. HAVE SOME DIGNITY AND FUCKING DO YOUR JOBS. YOU MAKE UP RULES AND LIES .
[2022-02-02] MEDS: Acetaminophen 325 MG TABLET 650 MG PO (08:33)
--- NOTE | 2022-02-02 15:38 | P.PNPSI_ITS ---
Subjective Subjective Date of Service: 02/02/22 Reason For Visit: Ritu Subjective Notes: 3 Day (02/03/22) Healthcare Proxy: No Guardianship: No Medical Problems Affecting Mental Status: Yes (retirement renal effects of Vale) Interim History: Discussed medication education with pt. Reviewed [place] Prescriber Guide as a resource for pt while in pt and for improved out pt follow-up understanding. Pt reports he agrees to allow tw to talk with his , however, he wants to be present for each conversation. Call to pt's , with pt to review discharge planning, pt's refusal of medications, agreement for renal consult and to begin some conflict resolution. Tw requested an in person meeting with both at the end of the day today, unfortunately, pt's is unable to attend. She requests a meeting on 02/03 130pm with pt and team prior to her work day beginning-will request from team. Received calls from after this call during the day. Pt states we can speak as long as he is present-we returned her call mid-afternoon and reviewed the plan. continued to request to speak privately, however, pt declined this permission. Discussed with pt reconsideration of remaining in pt-having new trials, improved mood stabilization, renal consult while here, and having transparancy in prescribing with literature, education, a new beginning for him. He declines. He will accept our recommendation for referral to a new provider-discussed [facility] referral. Discussed poor sleep and possible origin being ritu. Pt will accept a hydroxyzine prn tonight. Declines an increase dosage of Seroquel or mood stabilizing agent. Reviewed probable origin of sleep disruption-pt will accept hydroxyzine only. Voice mail from pt's Candy asking for a private conversation to review her concerns including pt's anger toward her for bringing him to hospital. She feels he is not back to his baseline and is hesitant to come to get him. She is concerned as Dr. Cobos has provided superior care and treatment for pt for several years and she does not believe that can be replaced and is worried about this decision of pt's to terminate their treatment relationship. Medication Compliance: Intermittent Side effects from medications: Yes (middle or intermediate school principal effects of Vale) Attending Groups: Intermittent Review of Systems Medical Review of Systems: unchanged Mental Status Exam Mental Status Exam Patient Appearance: Appropriate Patient Orientation: Person, Place, Time and Situation Level of Consciousness: Alert Patient Behavior: Talkative, Cooperative, Suspicious, Restless, Belligerent, Wandering, Resistive to Care, Avoidant, Distractible and Good Eye Contact Mood Description: Labile and Angry Affect Description: Labile and Angry Patient Cognition Impaired: No Ability to Follow Directions: Good Speech Pattern: Spontaneous Speech Memory Description: Episodic Impaired Hallucinations: None Delusions: Not Present Thought Process: Distracted and Goal Oriented Thought Content: positive for [place] and positive for Circumstantial Depressive Symptoms: Insomnia, Difficulty Sleeping, Unhappiness and Thoughts of /Suicide (denies) Abnormal Motor Activity Signs and Symptoms: Restlessness Judgement: Fair Diagnostics Vital Signs (24Hr): Vital Signs - 24 hr 02/01/22 16:37 02/02/22 06:00 Temperature 97.4 F 98.3 F Pulse Rate 72 80 Respiratory Rate 18 Blood Pressure 160/92 H 136/80 Pulse Oximetry 98 96 Oxygen Delivery Method Room Air BMI result Body Mass Index 26.5 Labs Results: 01/28/22 15:26 01/29/22 09:24 Medications Medications Current Medications Acetaminophen (Acetaminophen 325 Mg Tablet) 650 mg PO Q6H PRN PRN Reason: Headache/Pain Mild Scale (1-3) Last Admin: 02/02/22 08:33 Dose: 650 mg Al Hydroxide/Mg Hydroxide (Magnesium Hydrox/Alum Hydrox 30 Ml Oral.Susp) 30 ml PO Q6H PRN PRN Reason: Heartburn/Nausea Cyclobenzaprine HCl (Cyclobenzaprine Hcl 10 Mg Tablet) 10 mg PO TID PRN PRN Reason: muscle spasm, pain Last Admin: 01/31/22 04:01 Dose: 10 mg Hydroxyzine HCl (Hydroxyzine Hcl 25 Mg Tablet) 25 mg PO Q6H PRN PRN Reason: Anxiety Lamotrigine (Lamotrigine 100 Mg Tablet) 100 mg PO BEDTIME CYNTHIA Last Admin: 02/01/22 20:55 Dose: Not Given Levothyroxine Sodium (Levothyroxine Sodium 175 Mcg Tablet) 175 mcg PO BEDTIME CYNTHIA Last Admin: 02/01/22 20:52 Dose: 175 mcg Vale Carbonate (Vale Carbonate 300 Mg Capsule) 900 mg PO BEDTIME CYNTHIA Last Admin: 02/01/22 20:52 Dose: 900 mg Magnesium Hydroxide (Milk Of Magnesia 30 Ml Oral.Susp) 30 ml PO DAILY PRN PRN Reason: Constipation Nicotine (Nicotine 21 Mg Patch.Td24) 21 mg TRANSDERMA DAILY [facility] Last Admin: 02/02/22 08:35 Dose: Not Given Nicotine Polacrilex (Nicotine Polacrilex 2 Mg Gum) 2 mg BUCCAL Q1H PRN PRN Reason: Nicotine Cravings Last Admin: 01/30/22 12:09 Dose: 2 mg Omeprazole (Omeprazole 40 Mg Capsule.) 40 mg PO BEDTIME CYNTHIA Last Admin: 02/01/22 20:52 Dose: 40 mg Pharmacy Consult (Consult Rx Perform Med Rec) 1 each MISCELLANE ONCE PRN PRN Reason: Consult order Quetiapine Fumarate (Quetiapine Fumarate 100 Mg Tablet) 100 mg PO BID PRN PRN Reason: ritu, agitation Last Admin: 02/02/22 03:04 Dose: 100 mg Trazodone HCl (Trazodone Hcl 50 Mg Tablet) 50 mg PO BEDTIME PRN PRN Reason: Insomnia Last Admin: 01/30/22 20:44 Dose: 50 mg Allergies Allergies Allergy/AdvReac Type Severity Reaction Status Date / Time haloperidol [From HALDOL] Allergy Unknown UNKNOWN Verified 09/18/21 10:15 prednisone [PREDNISONE] Allergy Unknown UNKNOWN, Verified 09/18/21 10:15 er in psych Assessment & Plan Assessment & Plan (1) Bipolar disorder: Qualifiers: Active/Remission status: currently active Current bipolar episode type: manic Current episode severity: moderate Qualified Code(s): F31.12 - Bipolar disorder, current episode manic without psychotic features, moderate Status: Acute Code(s): F31.9 - Bipolar disorder, unspecified Assessment and Plan: 66 yo male, history of bipolar disorder, currently with ritu for approximately 2 weeks, with anger, which caused him to lose his job. Message left for Dr. Cobos to discuss plan of care as pt recently was tapered from Vale, which he disagrees with. Plan: Collateral contacts-pt refuses at this time Diagnostics Seroquel prn Continue current regime until we have input from Dr. Cobos. Urine culture 01/30- Pt declines Vraylar, asks to continue Vale. Expressing anger, labile mood today. Education attempted OP Provider states pt can transfer to another provider if he disagrees with plan of care. 01/31/22- Improved. Willing to have OP renal consult to make an informed decision regarding Vale. Open to ongoing education. Expression of anger and concerns are appropriate, clear. 02/02/22-TDN expires 02/03/22. Pt refuses to stay and work on mood. No SI, HI, Psychosis, however, anger and lability are present along with poor sleep-pt feels deceived by family and teams who treat him. I do believe pt is in need of further treatment and would beneift, I do see his sx as destructive to his life (lost a job due to mood), however, I do not see him as being committable at this time. asks for family meeting 02/03/22 1:30pm prior to her work day. She was unable to attend today. I spent minutes with the patient and/or on the patient floor today, greater than?50% of which was spent counseling/coordinating care. Patient educated on: diagnosis, medication risk/benefits and therapeutic strategies Informed Consent: understands and further education needed Reason for contiued inpatient stay Substantial Risk for: inability to function and rapid decompensation
[2022-02-02 18:00] VITALS: BP 139/102; PULSE 80; RESP 18; TEMP 35.9; O2SAT 97
[2022-02-02] MEDS: Lithium Carbonate 300 MG CAPSULE 900 MG PO (20:52)
[2022-02-02] MEDS: Omeprazole 40 MG CAPSULE.DR PO (20:52)
[2022-02-02] MEDS: hydrOXYzine HCL 50 MG TABLET PO (20:52)
[2022-02-02] MEDS: Levothyroxine Sodium 175 MCG TABLET PO (20:53)
[2022-02-03] MEDS: Acetaminophen 325 MG TABLET 650 MG PO ×2 (00:47→06:53)
[2022-02-03] MEDS: hydrOXYzine HCL 25 MG TABLET PO (00:59)
[2022-02-03] MEDS: Cyclobenzaprine HCl 10 MG TABLET PO (02:38)
[2022-02-03 06:00] VITALS: BP 151/92; PULSE 79; RESP 16; TEMP 36.6; O2SAT 97
--- NOTE | 2022-02-14 15:09 | P.DS_ITS ---
DS: Providers Provider Date of Service: 02/03/22 Date of admission: 01/28/22 22:10 Date of discharge: 02/03/22 Primary care physician: Keith Ramos MD Admitting clinician: Jil Cuellar Attending physician on admission: Roland Joens Attending physician on discharge: Roland Jones Discharging clinician: Jil Cuellar DS: Diagnosis Discharge Diagnosis (1) Bipolar disorder: Status: Acute DS: Medications Discharge Medications Home Medications: Home Medications Medication Instructions Recorded Confirmed adalimumab 40 mg/0.8 mL 40 mg subcut Q2W 07/02/20 01/28/22 subcutaneous syringe kit (Humira) pantoprazole 40 mg tablet,delayed 40 mg PO BEDTIME 07/02/20 01/28/22 release levothyroxine 175 mcg tablet 1 tab PO BEDTIME 01/28/22 01/28/22 Previous Rx's Medication Instructions Recorded lithium carbonate 300 mg tablet 900 mg PO BEDTIME #90 tabs 02/03/22 quetiapine 100 mg tablet 100 mg PO BID PRN ritu, agitation 02/03/22 #60 tabs Mental Status Exam Mental Status Exam Patient Appearance: Appropriate Patient Orientation: Person, Place, Time and Situation Level of Consciousness: Alert Patient Behavior: Talkative, Cooperative, Suspicious, Restless, Belligerent, Wandering, Resistive to Care, Avoidant, Distractible and Good Eye Contact Mood Description: Labile and Angry Affect Description: Labile and Angry Patient Cognition Impaired: No Ability to Follow Directions: Good Speech Pattern: Spontaneous Speech Memory Description: Episodic Impaired Hallucinations: None Delusions: Not Present Thought Process: Distracted and Goal Oriented Thought Content: positive for [place] and positive for Circumstantial Depressive Symptoms: Insomnia, Difficulty Sleeping, Unhappiness and Thoughts of /Suicide (denies) Abnormal Motor Activity Signs and Symptoms: Restlessness Judgement: Fair Data Data Completed and Pending Completed studies during hospitalization [Text1]: 01/30/22 08:37 Urine clean catch - Clean Catch Midstream Urine Culture - Final DS: Summary Hospital Course Hospital Course: Admission to adult psychiatry for exacerbation of bipolar disorder. Pt submitted a three day notice upon admission. He reports medications were changed by out patient team and family without his knowledge. Currently he has no trust in providers or family and returned to medications he has taken for years, [place] and Seroquel. Out patient team stopped [place] due to pt being on this agent for over 30 years he reports and with concern about renal function. Pt is not concerned about renal function, stating that control of his bipolar disorder is his priority. He did accept a second opinion consult with [facility], who will call him for an appointment to discuss this issue. Pt stopped Vraylar on admission, stating that his family put it in his beverages without his knowledge prior to admission and this caused mood instability. Pt was asked to remain in patient to continue to work on his mood, however, he reported that since he was deceived prior to admission, he now has no trust in providers. We were allowed to speak with his only with pt present. asked to speak privately with team, however, pt denied this request. Time spent discussing smoking cessation with patient: 3 to 10 minutes Status at Discharge Functional status at discharge: independent ambulation Overall status at discharge: patient is progressing back to baseline Time Spent with Patient Time attestation: Total time spent providing and/or coordinating discharge services: 35 Time spent: Greater than 30 minutes Discharge Plan Discharge Anticipated Discharge Date/Time: 02/03/22 15:56 Patient Disposition: Home, Self-Care Discharge Diagnosis: Bipolar Disorder Referrals: Hawa Joyce [Other] - 02/05/22 11:00 am (Initial Diagnostic Evaluation for Therapy Appointment in Person ) Annia Casanova [Other] - 03/06/22 10:00 am (Initial psychiatric evaluation for medication management Appointment in office at [facility].) Annia Casanova [Other] - 04/07/22 1:30 pm (Follow-up appointment for medication management services with psychiatric provider. Appointment in person at [facility].) Sunni Ralph NP [Nurse Practitioner] - 02/09/22 2:10 pm (IN OFFICE) Keith Ramos MD [Primary Care Provider] - 1 Week Discharge Medications: New quetiapine 100 mg Tablet 100 mg PO BID PRN (Reason: ritu, agitation) Qty: 60 0RF Continued pantoprazole 40 mg Tablet,Delayed Release (Dr/Ec) 40 mg PO BEDTIME Humira 40 mg/0.8 mL Syringe Kit 40 mg SUBCUT Q2W levothyroxine 175 mcg tablet 1 tab PO BEDTIME lithium carbonate 300 mg Tablet 900 mg PO BEDTIME Qty: 90 0RF Discontinued quetiapine 100 mg tablet 1 tab PO BEDTIME Discharge Orders: Discharge Order (Routine); Ordered 02/03/22 Ordered By: Jil Cuellar Diet: Advance to usual diet Activity on Discharge: As tolerated Stand Alone Forms: Patient Portal Discharge page Care Plan Goals: Mood and Behavioral Stabilization Take medications as directed Health Concerns: Mood and Behavioral Stabilization intermediate use of [place] Plan of Treatment: Attend follow up appointments Take medications as directed You have been referred to [facility] for a consult regarding your renal functioning and your [facility] use of [place]. We will have them call you for an appointment date and time as they require review of your hospital labs prior to scheduling. You are welcome to call and or return for treatment as needed. Crisis Team [phone] as needed. Assessment: Discharge on a three day notice. Declined offers to continue his admission and work on mood stabilization Declined to return to previous OP team (Dr. Cobos). No SI, No HI, No psychosis. Discharge Date/Time: 02/03/22 14:13
== END 2022-02-03 14:13 | disposition home or self-care (01) | DRG 753 ==
LOC: HO.ED 15:50 → HO.PM5 22:14
PROVIDERS: Admitting Provider Psychiatry & Neurology Psychiatry; Emergency Provider Emergency Medicine; PCP Internal Medicine; Visit Provider Clinical Nurse Specialist Psychiatric/Mental Health, Adult
DX: F31.12 Bipolar disorder, current episode manic without psychotic features, moderate (principal); E03.9 Hypothyroidism, unspecified; M06.9 Rheumatoid arthritis, unspecified; K21.9 Gastro-esophageal reflux disease without esophagitis; F17.210 Nicotine dependence, cigarettes, uncomplicated; Z71.6 Tobacco abuse counseling; Z88.8 Allergy status to other drugs, medicaments and biological substances; Z79.620 Long term (current) use of immunosuppressive biologic; Z79.890 Hormone replacement therapy; Z79.899 Other long term (current) drug therapy
CPT/HCPCS: 36415; 80048; 80053; 80061; 80076; 80178; 80307; 82077; 85025; 87086; 87635; 90792; 93005; 99285

== ENCOUNTER 2022-05-15 11:06 | Emergency (ER) | payer MEDICAID, SELFPAY ==
--- NOTE | ~2022-05-15 | CT_ITS ---
EXAMINATION: CT CHEST WITH CONTRAST CLINICAL INFORMATION: Chest pain with swallowing for 2 days. Severe COMPARISON: CT abdomen pelvis 08/09/2021 TECHNIQUE: Multidetector volumetric CT imaging of the chest was obtained after the administration of 65 mL of Omnipaque 350 intravenous contrast without immediate adverse reactions. Axial MIP volume rendering provided. Sagittal and coronal reformatted images were obtained. This CT examination was performed using dose optimization techniques as appropriate, variously including the following: *Automated exposure control *Adjustment of mA and/or kV according to patient size (this includes techniques or standardized protocols for targeted exams where dose is matched to indication/reason for exam; i.e. extremities or head) *Use of iterative reconstruction technique DLP: 253 mGy-cm FINDINGS: PUBLIC HEALTH STAFF NURSE: Symmetrically expanded lungs LUNGS: There is some respiratory motion. There is focal bronchiectasis and bronchial wall thickening in the lateral periphery of the right upper lobe. Ill-defined angulation and groundglass opacity seen posteriorly in the right upper lobe as well. Calcified granulomata along left major fissure. No focal consolidation seen. There is dependent material within the right mainstem bronchus consistent with mucus or aspirated material. There is bilateral perihilar bronchial wall thickening. MEDIASTINUM: Normal heart size. Normal size mediastinal lymph nodes. No hilar or mediastinal lymphadenopathy. Normal caliber thoracic aorta. No esophageal wall thickening by CT. No hiatal hernia. PLEURA: There is no pleural effusion. No pleural mass or thickening. AXILLA: No lymphadenopathy. UPPER ABDOMEN: No adrenal mass. There is some heterogeneous enhancement of the spleen which could be due to the early phase of contrast enhancement. OSSEOUS STRUCTURES: Unremarkable. CT/CT chest w IV con IMPRESSION: No esophageal wall thickening by CT. No hiatal hernia. No pneumomediastinum. There is dependent material in the right mainstem bronchus which could represent mucus or aspirated material. There is bilateral perihilar bronchial wall thickening consistent with airways disease. Focal bronchiectasis in the right upper lobe consistent with sequelae of prior infection. Fleischner guidelines were followed.
[2022-05-15 11:08] VITALS: BP 111/58; PULSE 57; RESP 18; TEMP 36.4; O2SAT 99; BMI 25.5
--- NOTE | 2022-05-15 11:15 | ED.GENADULT ---
HPI - General Adult General Chief complaint: General Medical <Lety Camp CNP - Last Filed: 05/15/22 11:18> Stated complaint: diff swallowing <Lety Camp CNP - Last Filed: 05/15/22 11:18> Time Seen by Provider: 05/15/22 13:10 <Lety Camp CNP - Last Filed: 05/15/22 11:18> Related Data Home medications: Home Medications Medication Instructions Recorded Confirmed adalimumab 40 mg/0.8 mL 40 mg subcut Q2W 07/02/20 01/28/22 subcutaneous syringe kit (Humira) pantoprazole 40 mg tablet,delayed 40 mg PO BEDTIME 07/02/20 01/28/22 release levothyroxine 175 mcg tablet 1 tab PO BEDTIME 01/28/22 01/28/22 Previous Rx's Medication Instructions Recorded lithium carbonate 300 mg tablet 900 mg PO BEDTIME #90 tabs 02/03/22 quetiapine 100 mg tablet 100 mg PO BID PRN ritu, agitation 02/03/22 #60 tabs lidocaine HCl 2 % mucosal solution 1 appl mucous membrane TID PRN 05/15/22 (Lidocaine Viscous) pain #100 mL <Lety Camp CNP - Last Filed: 05/15/22 11:18> Allergies/adverse reactions: Allergies Allergy/AdvReac Type Severity Reaction Status Date / Time haloperidol [From HALDOL] Allergy Unknown UNKNOWN Verified 05/15/22 11:17 prednisone [PREDNISONE] Allergy Unknown UNKNOWN, Verified 05/15/22 11:17 er in psych <Lety Camp CNP - Last Filed: 05/15/22 11:18> [facility] Past Medical History Medical History: Medical History Arthritis GERD (gastroesophageal reflux disease) Hiatal hernia Hx of bipolar disorder Thyroid disease <Lety Camp CNP - Last Filed: 05/15/22 11:18> Surgical History: Surgical History H/O colonoscopy History of dental surgery History of esophagogastroduodenoscopy (EGD) History of right inguinal hernia repair (08/13/21) <Lety Camp CNP - Last Filed: 05/15/22 11:18> Social History Social History: Social History Household Members: Spouse Housing: House Do you presently have visiting nurse or other home services: No Patient Tobacco Use Status: Current everyday Tobacco user Tobacco use type: Cigar Cigarettes Per Day: 2 Years Smoked: 40+ e-Cigarette/Vaping Use: Never Used Substance Use Type: Marijuana Advance Directives: No Advance Directives Information Provided: Yes service: No Sexual orientation: Straight/Heterosexual <Lety Camp CNP - Last Filed: 05/15/22 11:18> Physical Exam ED Vital Signs: Vital Signs - 24 hr 05/15/22 11:08 05/15/22 11:34 05/15/22 14:53 Temperature 97.5 F 98.2 F Pulse Rate 57 59 61 Respiratory Rate 18 18 18 Blood Pressure 111/58 L 120/68 116/67 Pulse Oximetry 99 98 97 Oxygen Delivery Method Room Air Room Air Room Air BMI result Body Mass Index 25.5 <Lety Camp CNP - Last Filed: 05/15/22 11:18> Vital Signs - 24 hr 05/15/22 11:08 05/15/22 11:34 05/15/22 14:53 Temperature 97.5 F 98.2 F Pulse Rate 57 59 61 Respiratory Rate 18 18 18 Blood Pressure 111/58 L 120/68 116/67 Pulse Oximetry 99 98 97 Oxygen Delivery Method Room Air Room Air Room Air BMI result Body Mass Index 25.5 <Vicente Saxena MD - Last Filed: 05/15/22 16:23> Course Course Course Narrative: This is an RME: Additional HPI, ROS, PE not included below will be deferred to primary provider. Is a 66-year-old male presents emergency department for evaluation of painful swallowing. Most prominently noted last night after eating a cheeseburger. Feels pain in the upper chest upon swallowing. He also endorses 15 lb weight loss over the past 2 months, unintentional. Reports history of GERD, denies any history of hiatal hernia. Denies fevers, chills, night sweats, inability to swallow, hoarseness of voice, impaired speech. <Lety Camp CNP - Last Filed: 05/15/22 11:18> Medications Administered Discontinued Medications Generic Name Dose Route Start Last Admin Trade Name Freq PRN Reason Stop Dose Admin Sodium Chloride 1,000 mls @ 999 mls/hr 05/15/22 13:30 05/15/22 14:27 Ns IV 05/15/22 14:30 Infused .Q1H1M CYNTHIA Infusion Iohexol 100 ml 05/15/22 13:54 05/15/22 13:55 Iohexol 350 Mg/Ml 100 Ml Infus..Btl IV 05/15/22 13:55 65 ml ONCE ONE Administration <Lety Camp CNP - Last Filed: 05/15/22 11:18> Medications Administered Discontinued Medications Generic Name Dose Route Start Last Admin Trade Name Freq PRN Reason Stop Dose Admin Sodium Chloride 1,000 mls @ 999 mls/hr 05/15/22 13:30 05/15/22 14:27 Ns IV 05/15/22 14:30 Infused .Q1H1M CYNTHIA Infusion Iohexol 100 ml 05/15/22 13:54 05/15/22 13:55 Iohexol 350 Mg/Ml 100 Ml Infus..Btl IV 05/15/22 13:55 65 ml ONCE ONE Administration <Vicente Saxena MD - Last Filed: 05/15/22 16:23> Medical Decision Making Lab Data Result Diagrams: 05/15/22 13:33 05/15/22 13:33 <Lety Camp CNP - Last Filed: 05/15/22 11:18> Labs: Lab Results 05/15/22 05/15/22 05/15/22 Range/Units 11:36 11:36 13:33 WBC 6.2 6.2 (4.8-10.8) X10*3/uL RBC 4.67 4.63 (4.60-5.80) X10*6/uL Hgb 14.3 14.4 (14.0-18.0) g/dl Hct 42.5 43.0 (42.0-52.0) % MCV 91.0 92.9 (80.0-98.0) fL MCH 30.6 31.1 (27.0-33.0) pg MCHC 33.6 33.5 (31.0-36.0) g/dl RDW 12.6 12.4 (11.0-16.0) % Plt Count 249 250 (160-400) X10*3/uL MPV 9.8 10.5 (9.4-12.4) fL Immature Gran % (Auto) 0.5 H 0.5 H (0.0-0.4) % Neut % (Auto) 61.3 56.8 (45-73) % Lymph % (Auto) 19.6 L 25.4 (20-40) % Emery % (Auto) 11.2 H 10.9 (2-11) % Eos % (Auto) 6.8 H 5.8 H (0-4) % Baso % (Auto) 0.6 0.6 (0-2) % Lymph # (Auto) 1.2 1.6 (1.2-4.9) X10*3/uL Emery # (Auto) 0.7 0.7 (0.1-1.2) X10*3/uL Eos # (Auto) 0.4 0.4 (0.0-0.4) X10*3/uL Baso # (Auto) 0.0 0.0 (0.0-0.2) X10*3/uL Abs Immat Gran (auto) 0.03 0.03 (0.00-0.03) X10*3/uL Absolute Neuts (auto) 3.8 3.5 (2.0-8.3) x10*3/uL Absolute Nucleated RBC 0.000 0.000 (0.0-0.012) X10*3/uL Nucleated RBC % (auto) 0.0 0.0 (0.0-0.2) /100WBC Sodium 140 (135-145) mmol/L Potassium 4.7 (3.3-5.1) mmol/L Chloride 111 H (96-108) mmol/L Carbon Dioxide 22 (22-29) mmol/L Anion Gap 12 (12-20) BUN 14 (9-16) mg/dL Creatinine 0.87 (0.5-1.4) mg/dL Estim Creat Clear Calc 80.1 Estimated GFR > 60 Random Glucose 96 (60-115) mg/dL Calcium 8.9 D (8.4-10.2) mg/dL Total Bilirubin 0.4 (0.0-1.0) mg/dL AST 13 (5-37) U/L ALT 11 (0-40) U/L Alkaline Phosphatase 62 (39-117) U/L Total Protein 6.8 (6.5-8.0) g/dL Albumin 4.0 (3.5-5.0) g/dL Lipase 25 (8-78) U/L 05/15/22 Range/Units 13:33 WBC (4.8-10.8) X10*3/uL RBC (4.60-5.80) X10*6/uL Hgb (14.0-18.0) g/dl Hct (42.0-52.0) % MCV (80.0-98.0) fL MCH (27.0-33.0) pg MCHC (31.0-36.0) g/dl RDW (11.0-16.0) % Plt Count (160-400) X10*3/uL MPV (9.4-12.4) fL Immature Gran % (Auto) (0.0-0.4) % Neut % (Auto) (45-73) % Lymph % (Auto) (20-40) % Emery % (Auto) (2-11) % Eos % (Auto) (0-4) % Baso % (Auto) (0-2) % Lymph # (Auto) (1.2-4.9) X10*3/uL Emery # (Auto) (0.1-1.2) X10*3/uL Eos # (Auto) (0.0-0.4) X10*3/uL Baso # (Auto) (0.0-0.2) X10*3/uL Abs Immat Gran (auto) (0.00-0.03) X10*3/uL Absolute Neuts (auto) (2.0-8.3) x10*3/uL Absolute Nucleated RBC (0.0-0.012) X10*3/uL Nucleated RBC % (auto) (0.0-0.2) /100WBC Sodium 139 (135-145) mmol/L Potassium 4.2 (3.3-5.1) mmol/L Chloride 112 H (96-108) mmol/L Carbon Dioxide 21 L (22-29) mmol/L Anion Gap 10 L (12-20) BUN 13 (9-16) mg/dL Creatinine 0.83 (0.5-1.4) mg/dL Estim Creat Clear Calc 84.0 Estimated GFR > 60 Random Glucose 86 (60-115) mg/dL Calcium 8.7 (8.4-10.2) mg/dL Total Bilirubin 0.4 (0.0-1.0) mg/dL AST 13 (5-37) U/L ALT 11 (0-40) U/L Alkaline Phosphatase 60 (39-117) U/L Total Protein 6.6 (6.5-8.0) g/dL Albumin 3.8 (3.5-5.0) g/dL Lipase (8-78) U/L <Lety Camp, INSURANCE COUNSELOR - Last Filed: 05/15/22 11:18> Lab Results 05/15/22 05/15/22 05/15/22 Range/Units 11:36 11:36 13:33 WBC 6.2 6.2 (4.8-10.8) X10*3/uL RBC 4.67 4.63 (4.60-5.80) X10*6/uL Hgb 14.3 14.4 (14.0-18.0) g/dl Hct 42.5 43.0 (42.0-52.0) % MCV 91.0 92.9 (80.0-98.0) fL MCH 30.6 31.1 (27.0-33.0) pg MCHC 33.6 33.5 (31.0-36.0) g/dl RDW 12.6 12.4 (11.0-16.0) % Plt Count 249 250 (160-400) X10*3/uL MPV 9.8 10.5 (9.4-12.4) fL Immature Gran % (Auto) 0.5 H 0.5 H (0.0-0.4) % Neut % (Auto) 61.3 56.8 (45-73) % Lymph % (Auto) 19.6 L 25.4 (20-40) % Emery % (Auto) 11.2 H 10.9 (2-11) % Eos % (Auto) 6.8 H 5.8 H (0-4) % Baso % (Auto) 0.6 0.6 (0-2) % Lymph # (Auto) 1.2 1.6 (1.2-4.9) X10*3/uL Emery # (Auto) 0.7 0.7 (0.1-1.2) X10*3/uL Eos # (Auto) 0.4 0.4 (0.0-0.4) X10*3/uL Baso # (Auto) 0.0 0.0 (0.0-0.2) X10*3/uL Abs Immat Gran (auto) 0.03 0.03 (0.00-0.03) X10*3/uL Absolute Neuts (auto) 3.8 3.5 (2.0-8.3) x10*3/uL Absolute Nucleated RBC 0.000 0.000 (0.0-0.012) X10*3/uL Nucleated RBC % (auto) 0.0 0.0 (0.0-0.2) /100WBC Sodium 140 (135-145) mmol/L Potassium 4.7 (3.3-5.1) mmol/L Chloride 111 H (96-108) mmol/L Carbon Dioxide 22 (22-29) mmol/L Anion Gap 12 (12-20) BUN 14 (9-16) mg/dL Creatinine 0.87 (0.5-1.4) mg/dL Estim Creat Clear Calc 80.1 Estimated GFR > 60 Random Glucose 96 (60-115) mg/dL Calcium 8.9 D (8.4-10.2) mg/dL Total Bilirubin 0.4 (0.0-1.0) mg/dL AST 13 (5-37) U/L ALT 11 (0-40) U/L Alkaline Phosphatase 62 (39-117) U/L Total Protein 6.8 (6.5-8.0) g/dL Albumin 4.0 (3.5-5.0) g/dL Lipase 25 (8-78) U/L 05/15/22 Range/Units 13:33 WBC (4.8-10.8) X10*3/uL RBC (4.60-5.80) X10*6/uL Hgb (14.0-18.0) g/dl Hct (42.0-52.0) % MCV (80.0-98.0) fL MCH (27.0-33.0) pg MCHC (31.0-36.0) g/dl RDW (11.0-16.0) % Plt Count (160-400) X10*3/uL MPV (9.4-12.4) fL Immature Gran % (Auto) (0.0-0.4) % Neut % (Auto) (45-73) % Lymph % (Auto) (20-40) % Emery % (Auto) (2-11) % Eos % (Auto) (0-4) % Baso % (Auto) (0-2) % Lymph # (Auto) (1.2-4.9) X10*3/uL Emery # (Auto) (0.1-1.2) X10*3/uL Eos # (Auto) (0.0-0.4) X10*3/uL Baso # (Auto) (0.0-0.2) X10*3/uL Abs Immat Gran (auto) (0.00-0.03) X10*3/uL Absolute Neuts (auto) (2.0-8.3) x10*3/uL Absolute Nucleated RBC (0.0-0.012) X10*3/uL Nucleated RBC % (auto) (0.0-0.2) /100WBC Sodium 139 (135-145) mmol/L Potassium 4.2 (3.3-5.1) mmol/L Chloride 112 H (96-108) mmol/L Carbon Dioxide 21 L (22-29) mmol/L Anion Gap 10 L (12-20) BUN 13 (9-16) mg/dL Creatinine 0.83 (0.5-1.4) mg/dL Estim Creat Clear Calc 84.0 Estimated GFR > 60 Random Glucose 86 (60-115) mg/dL Calcium 8.7 (8.4-10.2) mg/dL Total Bilirubin 0.4 (0.0-1.0) mg/dL AST 13 (5-37) U/L ALT 11 (0-40) U/L Alkaline Phosphatase 60 (39-117) U/L Total Protein 6.6 (6.5-8.0) g/dL Albumin 3.8 (3.5-5.0) g/dL Lipase (8-78) U/L <Vicente Saxena MD - Last Filed: 05/15/22 16:23> Attestation Attending Attestation: See my emergency department visit. <iVcente Saxena MD - Last Filed: 05/15/22 16:23> Discharge Plan Discharge Clinical Impression: Odynophagia, Abnormal weight loss <Lety Camp CNP - Last Filed: 05/15/22 11:18> Patient Disposition: Home, Self-Care <Lety Camp CNP - Last Filed: 05/15/22 11:18> Instructions: Dysphagia (ED) <Lety Camp CNP - Last Filed: 05/15/22 11:18> Prescriptions: New lidocaine HCl [Lidocaine Viscous] 2 % solution 1 appl mucous membrane TID PRN (Reason: pain) Qty: 100 0RF No Action pantoprazole 40 mg Tablet,Delayed Release (Dr/Ec) 40 mg PO BEDTIME Humira 40 mg/0.8 mL Syringe Kit 40 mg SUBCUT Q2W levothyroxine 175 mcg tablet 1 tab PO BEDTIME quetiapine 100 mg Tablet 100 mg PO BID PRN (Reason: ritu, agitation) Qty: 60 0RF lithium carbonate 300 mg Tablet 900 mg PO BEDTIME Qty: 90 0RF <Lety Camp CNP - Last Filed: 05/15/22 11:18> Referrals: Heath Clifton [Physician] - 5 days <Lety Camp CNP - Last Filed: 05/15/22 11:18> Interventions: ED Discharge Assessment Last Done: 05/15/22 15:25 <Lety Camp CNP - Last Filed: 05/15/22 11:18> Discharge Date/Time: 05/15/22 15:28 <Lety Camp CNP - Last Filed: 05/15/22 11:18>
[2022-05-15 11:34] VITALS: BP 120/68; PULSE 59; RESP 18; O2SAT 98
[2022-05-15 11:40] LABS: MANUAL DIFF FLAG NO
[2022-05-15 11:42] LABS: Basophils Percent Auto 0.6 % (0-2); Eosinophils Absolute Auto 0.4 X10*3/uL (0.0-0.4); Eosinophils Percent Auto 6.8 % (0-4); Hematocrit 42.5 % (42.0-52.0); Hemoglobin 14.3 g/dl (14.0-18.0); Imm Gran Abs Auto 0.03 X10*3/uL (0.00-0.03); Imm Gran Pct Auto 0.5 % (0.0-0.4); Lymphocytes Absolute Auto 1.2 X10*3/uL (1.2-4.9); Lymphocytes Percent Auto 19.6 % (20-40); Mean Corpuscular HGB Conc 33.6 g/dl (31.0-36.0); Mean Corpuscular Hemoglobin 30.6 pg (27.0-33.0); Mean Platelet Volume 9.8 fL (9.4-12.4); Monocytes Absolute Auto 0.7 X10*3/uL (0.1-1.2); Monocytes Percent Auto 11.2 % (2-11); Neutrophils Absolute Auto 3.8 x10*3/uL (2.0-8.3); Neutrophils Percent Auto 61.3 % (45-73); Platelet Count 249 X10*3/uL (160-400); Red Blood Count 4.67 X10*6/uL (4.60-5.80); Red Cell Distribution Width 12.6 % (11.0-16.0); White Blood Count 6.2 X10*3/uL (4.8-10.8)
[2022-05-15 12:11] LABS: Alanine Aminotransferase 11 U/L (0-40); Alkaline Phosphatase 62 U/L (39-117); Anion Gap 12 (12-20); Aspartate Amino Transferase 13 U/L (5-37); Bilirubin Total 0.4 mg/dL (0.0-1.0); Blood Urea Nitrogen 14 mg/dL (9-16); Calcium 8.9 mg/dL (8.4-10.2); Carbon Dioxide 22 mmol/L (22-29); Chloride 111 mmol/L (96-108); Creatinine Clr Calc Pharmacy 80.1; Estimated Glomerular Filt Rate > 60; Glucose Random 96 mg/dL (60-115); Lipase 25 U/L (8-78); Potassium 4.7 mmol/L (3.3-5.1); Sodium 140 mmol/L (135-145); Total Protein 6.8 g/dL (6.5-8.0)
[2022-05-15] MEDS: 0.9 % Sodium Chloride 1,000 ML 999 ML IV (13:32)
--- NOTE | 2022-05-15 13:38 | ED.GENADULT ---
HPI - General Adult General Chief complaint: General Medical Stated complaint: diff swallowing Time Seen by Provider: 05/15/22 13:10 Source: patient Mode of arrival: ambulatory Limitations: no limitations History of Present Illness HPI narrative: 66-year-old male presents with history of weight loss and difficulty swallowing. Patient is a 15 lb weight loss over the past 4 weeks. He reports approximately 4 weeks of some mild difficulty swallowing up until last night when he had severe difficulty swallowing associated with upper chest discomfort. He is able to tolerate liquids. He also reports diarrhea. He does have a family history of esophageal cancer in his father. He is on a proton pump inhibitor. He has remote history of an EGD. He also reports an excessive thirst and lightheadedness. He denies any additional complaints such as lymphadenopathy, chest pain, shortness of breath, palpitations, abdominal pain. He has noted some slight abdominal distention however. Related Data Home Medications Medication Instructions Recorded Confirmed adalimumab 40 mg/0.8 mL 40 mg subcut Q2W 07/02/20 01/28/22 subcutaneous syringe kit (Humira) pantoprazole 40 mg tablet,delayed 40 mg PO BEDTIME 07/02/20 01/28/22 release levothyroxine 175 mcg tablet 1 tab PO BEDTIME 01/28/22 01/28/22 Previous Rx's Medication Instructions Recorded lithium carbonate 300 mg tablet 900 mg PO BEDTIME #90 tabs 02/03/22 quetiapine 100 mg tablet 100 mg PO BID PRN ritu, agitation 02/03/22 #60 tabs Allergies Allergy/AdvReac Type Severity Reaction Status Date / Time haloperidol [From HALDOL] Allergy Unknown UNKNOWN Verified 05/15/22 11:17 prednisone [PREDNISONE] Allergy Unknown UNKNOWN, Verified 05/15/22 11:17 er in psych Review of Systems Review of Systems: Yes all other systems are reviewed and are negative Constitutional: Constitutional: Reports weight loss Eyes: Eyes: Reports no additional eye complaints ENT: Reports system reviewed and no additional complaints, except as documented and Reports odynophagia Cardiovascular: Cardiovascular: Reports no additional cardiovascular complaints Respiratory: Respiratory: Reports no additional respiratory complaints Gastrointestinal: Gastrointestinal: Reports no additional gastrointestinal complaints, Reports diarrhea and Reports odynophagia Genitourinary: Genitourinary: Reports no additional male genitourinary complaints Musculoskeletal: Musculoskeletal: Reports no additional musculoskeletal complaints Integumentary/Breasts: Skin/Breast: Reports system reviewed and no additional complaints, except as docu Neurologic: Reports system reviewed and no additional complaints, except as documented Psychiatric: Psychiatric: Reports no additional psychiatric complaints Endocrine: Endocrine: Reports no additional endocrine complaints Hematologic/Lymphatic: Hematologic/Lymphatic: Reports no additional hematologic/lymphatic complaints REPLACED BY [facility] Past Medical History Attestation statement: The following information was validated with the patient. Medical History Arthritis GERD (gastroesophageal reflux disease) Hiatal hernia Hx of bipolar disorder Thyroid disease Surgical History H/O colonoscopy History of dental surgery History of esophagogastroduodenoscopy (EGD) History of right inguinal hernia repair (08/13/21) Social History Social History Household Members: Spouse Housing: House Do you presently have visiting nurse or other home services: No Patient Tobacco Use Status: Current everyday Tobacco user Tobacco use type: Cigar Cigarettes Per Day: 2 Years Smoked: 40+ e-Cigarette/Vaping Use: Never Used Substance Use Type: Marijuana Advance Directives: No Advance Directives Information Provided: Yes service: No Sexual orientation: Straight/Heterosexual Physical Exam ED Vital Signs: Vital Signs - 24 hr 05/15/22 11:08 05/15/22 11:34 05/15/22 14:53 Temperature 97.5 F 98.2 F Pulse Rate 57 59 61 Respiratory Rate 18 18 18 Blood Pressure 111/58 L 120/68 116/67 Pulse Oximetry 99 98 97 Oxygen Delivery Method Room Air Room Air Room Air BMI result Body Mass Index 25.5 Const General: cooperative, healthy appearing, comfortable, no acute distress and well developed Orientation/consciousness: patient oriented x3 HENMT Head: Yes normal to inspection Eyes General: appearance normal, both eyes and all related structures Neck Neck: Yes full ROM and Yes no lymphadenopathy Resp Effort & Inspection: normal respiratory effort Auscultation: clear to auscultation bilaterally Cardio Jugular venous distension: no JVD Rate: regular rate Rhythm: regular rhythm Skin General skin exam: no rashes or lesions noted Neuro General: patient oriented x3, no focal motor deficits and CN's II-XI intact bilaterally Psych Appearance: grossly normal Mental Status: mental status grossly normal Course Course Course Narrative: With 66-year-old male presenting with weight loss and difficulty swallowing and painful swallowing. He is able to tolerate fluids. Does not appear dehydrated. At this time, given family history of esophageal cancer, will obtain a CT scan of the chest with intravenous contrast. Will obtain labs to rule out renal dysfunction electrolyte abnormality as well as a CBC given his lightheadedness throughout anemia. His examination was otherwise unremarkable. Differential diagnosis can include esophageal mass, soft tissue structure, Schatzki's ring, soft GI dysmotility, reflux, S LES dysfunction Reevaluation(s) Reevaluation #1: Discussed results with the patient. Patient will need outpatient follow-up with Gastroenterology. I suspect herniated upper endoscopy. The most likely diagnosis at this point would be esophageal stricture versus Schatzki ring. I will recommend aspiration precautions as well given the concern for some aspirated material seen on CT scan. Will discuss reasons to return including fever, shortness of breath. There is no indication at this time to start prophylactic antibiotics. Time: 15:16 Medications Administered Discontinued Medications Generic Name Dose Route Start Last Admin Trade Name Freq PRN Reason Stop Dose Admin Sodium Chloride 1,000 mls @ 999 mls/hr 05/15/22 13:30 05/15/22 14:27 Ns IV 05/15/22 14:30 Infused .Q1H1M CYNTHIA Infusion Iohexol 100 ml 05/15/22 13:54 05/15/22 13:55 Iohexol 350 Mg/Ml 100 Ml Infus..Btl IV 05/15/22 13:55 65 ml ONCE ONE Administration Medical Decision Making Medical Decision Making [facility] Narrative: 66-year-old male presenting with painful swallowing for 1 day, weight loss over. Of 1 month presents for evaluation. He also has some symptomatic complaints of lightheadedness and 15 lb weight loss over 1 month. . Examination was unremarkable including no lymphadenopathy. Patient had a CT scan of the chest to rule out mass effect. Will also do laboratory analysis to rule out anemia, electrolyte abnormality for additional symptoms of lightheadedness. Differential Diagnosis Differential Diagnoses: The differential diagnosis associated with the presentation includes (Odynophagia, dysphagia, esophageal mass, sulfa GI stricture, Schatzki's ring, reflux) Odynophagia and weight loss Admission/Observation Consideration of admission/observation: Escalation of care including admission/observation considered (However unless there is anything catastrophic, patient can likely be worked up as an outpatient) Lab Data MDM Lab Attestation statement: I reviewed the patient's lab results. 05/15/22 11:36 05/15/22 11:36 Labs: Lab Results 05/15/22 05/15/22 05/15/22 Range/Units 11:36 11:36 13:33 WBC 6.2 6.2 (4.8-10.8) X10*3/uL RBC 4.67 4.63 (4.60-5.80) X10*6/uL Hgb 14.3 14.4 (14.0-18.0) g/dl Hct 42.5 43.0 (42.0-52.0) % MCV 91.0 92.9 (80.0-98.0) fL MCH 30.6 31.1 (27.0-33.0) pg MCHC 33.6 33.5 (31.0-36.0) g/dl RDW 12.6 12.4 (11.0-16.0) % Plt Count 249 250 (160-400) X10*3/uL MPV 9.8 10.5 (9.4-12.4) fL Immature Gran % (Auto) 0.5 H 0.5 H (0.0-0.4) % Neut % (Auto) 61.3 56.8 (45-73) % Lymph % (Auto) 19.6 L 25.4 (20-40) % [place] % (Auto) 11.2 H 10.9 (2-11) % Eos % (Auto) 6.8 H 5.8 H (0-4) % Baso % (Auto) 0.6 0.6 (0-2) % Lymph # (Auto) 1.2 1.6 (1.2-4.9) X10*3/uL [place] # (Auto) 0.7 0.7 (0.1-1.2) X10*3/uL Eos # (Auto) 0.4 0.4 (0.0-0.4) X10*3/uL Baso # (Auto) 0.0 0.0 (0.0-0.2) X10*3/uL Abs Immat Gran (auto) 0.03 0.03 (0.00-0.03) X10*3/uL Absolute Neuts (auto) 3.8 3.5 (2.0-8.3) x10*3/uL Absolute Nucleated RBC 0.000 0.000 (0.0-0.012) X10*3/uL Nucleated RBC % (auto) 0.0 0.0 (0.0-0.2) /100WBC Sodium 140 (135-145) mmol/L Potassium 4.7 (3.3-5.1) mmol/L Chloride 111 H (96-108) mmol/L Carbon Dioxide 22 (22-29) mmol/L Anion Gap 12 (12-20) BUN 14 (9-16) mg/dL Creatinine 0.87 (0.5-1.4) mg/dL Estim Creat Clear Calc 80.1 Estimated GFR > 60 Random Glucose 96 (60-115) mg/dL Calcium 8.9 D (8.4-10.2) mg/dL Total Bilirubin 0.4 (0.0-1.0) mg/dL AST 13 (5-37) U/L ALT 11 (0-40) U/L Alkaline Phosphatase 62 (39-117) U/L Total Protein 6.8 (6.5-8.0) g/dL Albumin 4.0 (3.5-5.0) g/dL Lipase 25 (8-78) U/L 05/15/22 Range/Units 13:33 WBC (4.8-10.8) X10*3/uL RBC (4.60-5.80) X10*6/uL Hgb (14.0-18.0) g/dl Hct (42.0-52.0) % MCV (80.0-98.0) fL MCH (27.0-33.0) pg MCHC (31.0-36.0) g/dl RDW (11.0-16.0) % Plt Count (160-400) X10*3/uL MPV (9.4-12.4) fL Immature Gran % (Auto) (0.0-0.4) % Neut % (Auto) (45-73) % Lymph % (Auto) (20-40) % [place] % (Auto) (2-11) % Eos % (Auto) (0-4) % Baso % (Auto) (0-2) % Lymph # (Auto) (1.2-4.9) X10*3/uL [place] # (Auto) (0.1-1.2) X10*3/uL Eos # (Auto) (0.0-0.4) X10*3/uL Baso # (Auto) (0.0-0.2) X10*3/uL Abs Immat Gran (auto) (0.00-0.03) X10*3/uL Absolute Neuts (auto) (2.0-8.3) x10*3/uL Absolute Nucleated RBC (0.0-0.012) X10*3/uL Nucleated RBC % (auto) (0.0-0.2) /100WBC Sodium 139 (135-145) mmol/L Potassium 4.2 (3.3-5.1) mmol/L Chloride 112 H (96-108) mmol/L Carbon Dioxide 21 L (22-29) mmol/L Anion Gap 10 L (12-20) BUN 13 (9-16) mg/dL Creatinine 0.83 (0.5-1.4) mg/dL Estim Creat Clear Calc 84.0 Estimated GFR > 60 Random Glucose 86 (60-115) mg/dL Calcium 8.7 (8.4-10.2) mg/dL Total Bilirubin 0.4 (0.0-1.0) mg/dL AST 13 (5-37) U/L ALT 11 (0-40) U/L Alkaline Phosphatase 60 (39-117) U/L Total Protein 6.6 (6.5-8.0) g/dL Albumin 3.8 (3.5-5.0) g/dL Lipase (8-78) U/L Radiology Impression Discussion of test interpretation with radiology: I have reviewed the radiologist's reading. (IMPRESSION: No esophageal wall thickening by CT. No hiatal hernia. No pneumomediastinum. There is dependent material in the right mainstem bronchus which could represent mucus or aspirated material. There is bilateral perihilar bronchial wall thickening consistent with airways disease. Focal b) Independent Historian Clinical information obtained from an independent historian. History obtained from or confirmed by: Spouse () reports Heath Clifton this is infectious diseases physician External Record Review External record reviewed: Office record and Other (Gastroenterology no) Prescription Management I considered prescription management with: Other (IV fluids) Discharge Plan Discharge Clinical Impression: Odynophagia, Abnormal weight loss Patient Disposition: Home, Self-Care Instructions: Dysphagia (ED) Prescriptions: No Action pantoprazole 40 mg Tablet,Delayed Release (Dr/Ec) 40 mg PO BEDTIME Humira 40 mg/0.8 mL Syringe Kit 40 mg SUBCUT Q2W levothyroxine 175 mcg tablet 1 tab PO BEDTIME quetiapine 100 mg Tablet 100 mg PO BID PRN (Reason: ritu, agitation) Qty: 60 0RF lithium carbonate 300 mg Tablet 900 mg PO BEDTIME Qty: 90 0RF Referrals: Heath Clifton [Physician] - 5 days
[2022-05-15 13:51] LABS: MANUAL DIFF FLAG NO
[2022-05-15 13:55] LABS: Basophils Percent Auto 0.6 % (0-2); Eosinophils Absolute Auto 0.4 X10*3/uL (0.0-0.4); Eosinophils Percent Auto 5.8 % (0-4); Hemoglobin 14.4 g/dl (14.0-18.0); Imm Gran Abs Auto 0.03 X10*3/uL (0.00-0.03); Imm Gran Pct Auto 0.5 % (0.0-0.4); Lymphocytes Absolute Auto 1.6 X10*3/uL (1.2-4.9); Lymphocytes Percent Auto 25.4 % (20-40); Mean Corpuscular HGB Conc 33.5 g/dl (31.0-36.0); Mean Corpuscular Hemoglobin 31.1 pg (27.0-33.0); Mean Corpuscular Volume 92.9 fL (80.0-98.0); Mean Platelet Volume 10.5 fL (9.4-12.4); Monocytes Absolute Auto 0.7 X10*3/uL (0.1-1.2); Monocytes Percent Auto 10.9 % (2-11); Neutrophils Absolute Auto 3.5 x10*3/uL (2.0-8.3); Neutrophils Percent Auto 56.8 % (45-73); Platelet Count 250 X10*3/uL (160-400); Red Blood Count 4.63 X10*6/uL (4.60-5.80); Red Cell Distribution Width 12.4 % (11.0-16.0); White Blood Count 6.2 X10*3/uL (4.8-10.8)
[2022-05-15] MEDS: iohexoL 350 MG/ML 100 ML INFUS..BTL IV (13:55)
[2022-05-15 14:18] LABS: Alanine Aminotransferase 11 U/L (0-40); Albumin Level 3.8 g/dL (3.5-5.0); Alkaline Phosphatase 60 U/L (39-117); Anion Gap 10 (12-20); Aspartate Amino Transferase 13 U/L (5-37); Bilirubin Total 0.4 mg/dL (0.0-1.0); Blood Urea Nitrogen 13 mg/dL (9-16); Calcium 8.7 mg/dL (8.4-10.2); Carbon Dioxide 21 mmol/L (22-29); Chloride 112 mmol/L (96-108); Estimated Glomerular Filt Rate > 60; Glucose Random 86 mg/dL (60-115); Potassium 4.2 mmol/L (3.3-5.1); Sodium 139 mmol/L (135-145); Total Protein 6.6 g/dL (6.5-8.0)
[2022-05-15 14:53] VITALS: BP 116/67; PULSE 61; RESP 18; TEMP 36.8; O2SAT 97
== END 2022-05-15 15:28 | disposition home or self-care (01) ==
PROVIDERS: Nurse Practitioner Family; Emergency Provider Emergency Medicine; PCP Internal Medicine
DX: R13.10 Dysphagia, unspecified (principal); R63.4 Abnormal weight loss; Z68.25 Body mass index [BMI] 25.0-25.9, adult; R19.7 Diarrhea, unspecified; R63.1 Polydipsia; R42 Dizziness and giddiness; Z80.8 Family history of malignant neoplasm of other organs or systems
CPT/HCPCS: 36415; 71260; 80053; 83690; 85025; 96360; 99284; Q9967

== ENCOUNTER 2022-07-13 11:26 | Day surgery (SDC) | payer MEDICAID, SELFPAY ==
--- NOTE | 2022-07-10 14:14 | HO.ANESPROP2 ---
Documented by User: Sunni Nieto NP 07/10/22 14:15 HPI - Anesthesia Eval Consult details Narrative: 66yo M for Upper Endoscopy with Balloon Dilitation, Colonoscopy PMF Active Problems Active Problems: All Active Problems (Updated 07/10/22 @ 14:12 by Brandi Bermudez RN) Incarcerated right inguinal hernia (Acute) Bipolar disorder (Acute) Past Medical History Medical History (Updated 07/10/22 @ 14:14 by Sunni Nieto NP) Arthritis Diverticulitis GERD (gastroesophageal reflux disease) Hiatal hernia Hx of bipolar disorder Smoker Thyroid disease Surgical History Surgical History H/O colonoscopy History of dental surgery History of esophagogastroduodenoscopy (EGD) History of right inguinal hernia repair (08/13/21) History of Problems with Anesthesia: No Social History Social History Household Members: Spouse Housing: House Do you presently have visiting nurse or other home services: No Patient Tobacco Use Status: Current everyday Tobacco user Tobacco use type: Cigar Cigarettes Per Day: 2 Years Smoked: 40+ e-Cigarette/Vaping Use: Never Used Substance Use Type: Marijuana Advance Directives: No Advance Directives Information Provided: Yes service: No Sexual orientation: Straight/Heterosexual Meds Allergies Allergy/AdvReac Type Severity Reaction Status Date / Time haloperidol [From HALDOL] Allergy Unknown UNKNOWN Verified 05/15/22 11:17 prednisone [PREDNISONE] Allergy Unknown UNKNOWN, Verified 05/15/22 11:17 er in psych Home Medications Medication Instructions Recorded Confirmed Last Taken Type adalimumab 40 mg/0.8 mL 40 mg subcut Q2W 07/02/20 01/28/22 01/22/22 History subcutaneous syringe kit (Humira) pantoprazole 40 mg tablet,delayed 40 mg PO BEDTIME 07/02/20 01/28/22 01/27/22 History release levothyroxine 175 mcg tablet 1 tab PO BEDTIME 01/28/22 01/28/22 01/27/22 History Exam Exam Date and Time: July 10, 2022 1414 Pertinent Lab Results Pertinent Lab Results: Laboratory Tests 05/15/22 05/15/22 13:33 13:33 WBC 6.2 Hgb 14.4 Hct 43.0 Plt Count 250 Sodium 139 Potassium 4.2 Chloride 112 H Carbon Dioxide 21 L BUN 13 Creatinine 0.83 Narrative Narrative: EKG 01/2022 Vent. Rate : 055 BPM ? ? Atrial Rate : 055 BPM ?? P-R Int : 184 ms? QRS Dur : 086 ms ? ? QT Int : 408 ms ? ? ? P-R-T Axes : 045 -22 044 degrees ?? QTc Int : 390 ms ? Sinus bradycardia Otherwise normal ECG No previous ECGs available Assessment and Plan Final Anesthetic Review History of Problems with Anesthesia: No Documented by User: Neil Rodriguez MD 07/13/22 11:41 [facility] Past Medical History Medical History (Updated 07/10/22 @ 14:14 by Sunni Nieto NP) Arthritis Diverticulitis GERD (gastroesophageal reflux disease) Hiatal hernia Hx of bipolar disorder Smoker Thyroid disease Family History Family history of problems with anesthesia: No Surgical History Surgical History H/O colonoscopy History of dental surgery History of esophagogastroduodenoscopy (EGD) History of right inguinal hernia repair (08/13/21) History of Problems with Anesthesia: No Social History Social History Household Members: Spouse Housing: House Do you presently have visiting nurse or other home services: No Patient Tobacco Use Status: Current everyday Tobacco user Tobacco use type: Cigar Cigarettes Per Day: 2 Years Smoked: 40+ e-Cigarette/Vaping Use: Never Used Substance Use Type: Marijuana Advance Directives: No Advance Directives Information Provided: Yes service: No Sexual orientation: Straight/Heterosexual Meds Allergies Allergy/AdvReac Type Severity Reaction Status Date / Time haloperidol [From HALDOL] Allergy Unknown UNKNOWN Verified 05/15/22 11:17 prednisone [PREDNISONE] Allergy Unknown UNKNOWN, Verified 05/15/22 11:17 er in psych Home Medications Medication Instructions Recorded Confirmed Last Taken Type adalimumab 40 mg/0.8 mL 40 mg subcut Q2W 07/02/20 01/28/22 01/22/22 History subcutaneous syringe kit (Humira) pantoprazole 40 mg tablet,delayed 40 mg PO BEDTIME 07/02/20 01/28/22 01/27/22 History release levothyroxine 175 mcg tablet 1 tab PO BEDTIME 01/28/22 01/28/22 01/27/22 History Exam Airway Mallampati Class: II TM Dist: >3cm Heart: rrr Lungs: cta Assessment and Plan Assessment Anesthesia Assessment: Anesthesia Plan Discussed and Chart Reviewed Final Anesthetic Review Family History of Problems with Anesthesia: No History of Problems with Anesthesia: No NPO: Yes ASA Class: III Patient Risk: Intermediate Procedure Risk: Intermediate Anesthetic Plan Anesthetic Plan: MAC: Disposition: Standard PACU
[2022-07-13] MEDS: Lactated Ringers 1,000 ML 100 ML IVCONT (11:29)
[2022-07-13 11:31] VITALS: BMI 27.6
[2022-07-13 11:53] VITALS: BP 103/67; PULSE 71; RESP 18; TEMP 36.7; O2SAT 97
--- NOTE | 2022-07-13 14:10 | P.BOP_ITS ---
Brief Operative Note Date of Service: 07/13/22 Pre-op diagnosis: GERD/Dysphagia/Screening Post-op diagnosis: other (Hiatal hernia, Polyps) Procedure: EGD with biopsies, Colonoscopy to the cecum with hot snare polypectomy x 9, with placement of 4 Resolution clips on the proximal ascending colon polypectomy site and 1 Resolution clip on 1 of the Hepatic flexure polypectomy sites Surgeon: Heath Clifton Anesthesia: MAC Was an Tool Grinding Machine Operator used for this Procedure?: No Estimated blood loss (mL): 2.0 Pathology: other (A. EG Junction at 37cm B. Cecal polyps C. Proximal ascending colon polyp D. Ascending colon polyps E. Hepatic flexure polyps F. Rectal polyp) Condition: stable Disposition: PACU
[2022-07-13 14:12] VITALS: BP 131/74; PULSE 68; RESP 20; TEMP 36.4; O2SAT 96
[2022-07-13 14:27] VITALS: BP 146/87; PULSE 55; RESP 16; TEMP 37.2; O2SAT 97
--- NOTE | 2022-07-14 01:54 | OP_ITS ---
SURGEON: Heath Clifton MD INDICATIONS: The patient presents for evaluation of gastroesophageal reflux, dysphagia, personal history of tubular adenomas of the colon, family history of colon cancer, and colorectal cancer screening. Full consent has been obtained from him for both procedures, including risks of bleeding and perforation. PREOPERATIVE DIAGNOSIS: POSTOPERATIVE DIAGNOSIS: PROCEDURE PERFORMED: ESTIMATED BLOOD LOSS: COMPLICATIONS: ANESTHESIA: Medication used, monitored anesthesia care. ASSISTANTS: SPECIMENS: PREOPERATIVE DIAGNOSES: Gastroesophageal reflux, dysphagia, personal history of tubular adenomas of the colon, family history of colon cancer, colorectal cancer screening. POSTOPERATIVE DIAGNOSES: Gastroesophageal reflux, dysphagia, personal history of tubular adenomas of the colon, family history of colon cancer, colorectal cancer screening, hiatal hernia, rule out Joyce's esophagus, multiple colon polyps, diverticulosis, internal hemorrhoids. PROCEDURES PERFORMED: Esophagogastroduodenoscopy with biopsies, and colonoscopy to the cecum with multiple hot snare polypectomies and placement of Resolution clips. DESCRIPTION OF PROCEDURE: The patient was placed in the left lateral decubitus position. The Olympus video gastroscope was passed in the posterior oropharynx and upper esophagus under direct vision. The scope was passed slowly to the distal esophagus. The gastroesophageal junction appeared at 37 cm. There was some slight irregularity consistent with chronic reflux, but no evidence of esophagitis nor any definitive evidence of Joyce's mucosa. There was no sign of any esophageal stricture nor ring. The scope easily entered the stomach. There was a small hiatal hernia. The scope was advanced to the pylorus and the duodenum was cannulated to the descending portion. The duodenum including the bulb appeared normal without mass or ulceration. The scope was withdrawn back in the stomach. The gastric antrum and body appeared normal with good peristalsis. The scope was retroflexed visualizing the proximal stomach carefully which appeared normal, without any sign of mass or ulceration. The scope was straightened out and withdrawn back in the esophagus. With insufflation of air, the gastroesophageal junction opened widely. There was no sign of any narrowing nor obstruction. Therefore, balloon dilation was not performed. I did obtain biopsies at the EG junction at 37 cm. Proximal to this, the esophageal mucosa appeared normal. There was no sign of proximal esophageal rings nor stricture. The scope was withdrawn from the patient. He was turned around for the colonoscopy. The digital rectal exam revealed no abnormalities. The Olympus video pediatric colonoscope was entered into the rectum and advanced easily to the cecum. Once in the cecum, I did identify cecal pouch with appendiceal orifice and a normal-appearing ileocecal valve. The entire cecum and ileocecal valve were well visualized. The appendiceal orifice appeared normal. In the cecum, were 2 polyps. One was approximately 5 or 6 cm in diameter and was removed by hot snare polypectomy, recovered by suction. The polypectomy site appeared clean, without any sign of residual polyp nor bleeding. The other polyp was approximately 10 to 12 mm in diameter and was removed in piecemeal fashion with a hot snare polypectomy with all pieces recovered by suction. Both polyps were placed in the same container. The second polypectomy site also appeared clean, without any sign of residual polyp nor bleeding. The scope was then slowly withdrawn assessing all mucosal surfaces carefully. For the most part, preparation was excellent, although there were areas of some liquid stool which had to be irrigated and suctioned away. In the proximal ascending colon, was a relatively large multilobulated and relatively flat polyp about 2 cm in diameter in between folds. This was removed in piecemeal fashion by hot snare polypectomy with multiple pieces recovered by suction. Post-polypectomy, there did not appear to be any residual polyp nor bleeding. However, given the size of the polypectomy site, I did place 4 Resolution clips on the polypectomy site with good deployment and good hemostasis. In the more distal portion of the ascending colon were two polyps, each measuring about 6 to 8 mm. These were both snared and removed with hot snare polypectomy, and recovered by suction. The polypectomy sites appeared clean, without any sign of residual polyp nor bleeding. In the area of the hepatic flexure, were 2 polyps. One was approximately 5 to 6 mm in diameter and removed by hot snare polypectomy. The other polyp was approximately 10 to 12 mm in diameter and removed by hot snare polypectomy as well. Both polypectomy sites appeared clean, without any sign of residual polyp nor bleeding. I did use a single Resolution clip on the large polypectomy site with good deployment and good hemostasis. In the rectum, in the proximal portion, was an approximately 12 mm polyp on a short stalk which was removed by hot snare polypectomy and recovered by suction. The polypectomy site appeared clean, without any sign of residual polyp nor bleeding. Also in the rectum were previously placed submucosal ink jeff which were still present, from his previous polypectomy. Of note, I did visualize other smaller less than 10 mm polyps, which were not removed today given the lengthiness of the procedure. I did not visualize any sign of colitis nor angiodysplasia. There is mild amount of sigmoid diverticulosis. In the rectum, the scope was retroflexed visualizing internal hemorrhoids, but no other pathology. The rectal mucosa appeared normal. The scope was straightened and withdrawn from the patient. He tolerated both procedures well and was returned to the recovery area in stable condition. IMPRESSION: 1. Multiple colon polyps. 2. Diverticulosis. 3. Internal hemorrhoids. 4. Hiatal hernia, gastroesophageal reflux. PLAN: The results of the biopsies will be checked. He was advised not to use any aspirin or NSAIDs for at least two weeks. I would recommend a repeat colonoscopy within one year given his previous history and family history, as well as today's findings. I do feel that perhaps given the somewhat limited prep, he does have small polyps that go unvisualized and therefore there are larger polyps on followup exams. As such, I will recommend a followup colonoscopy within one year with perhaps a two-day prep to be sure we get an even better clean out and visualization. He was advised to continue his daily PPI for his reflux. We did review that. I did not see any narrowing or obstruction of the esophagus that would cause dysphagia and I do suspect this is related to his poor dentition. He is aware that he needs to cut up his food very carefully and eat very slowly. I did review this with the patient and his , and hopefully he will be able to get some dental care to improve his dentition and ability to eat comfortably and safely. I will plan to see him in the Fall for a followup visit, at which time we will then schedule his colonoscopy for early in 2023. He was advised to call sooner as needed. This has all been discussed with his in detail. MD HERB Mendez/DORON / [id number] PAULO
== END 2022-07-13 14:56 | disposition home or self-care (01) ==
PROVIDERS: PCP Internal Medicine; Visit Provider Internal Medicine
PROC: (CPT 45385; principal; 2022-07-13 12:30)
PROC: 0DJD8ZZ Inspection of Lower Intestinal Tract, Via Natural or Artificial Opening Endoscopic (ICD-10-PCS; CPT 45378; 2022-07-13 12:30)
DX: Z12.11 Encounter for screening for malignant neoplasm of colon (principal); Z86.010 Personal history of colon polyps; Z80.0 Family history of malignant neoplasm of digestive organs; D12.0 Benign neoplasm of cecum; D12.2 Benign neoplasm of ascending colon; D12.3 Benign neoplasm of transverse colon; D12.8 Benign neoplasm of rectum; K57.30 Diverticulosis of large intestine without perforation or abscess without bleeding; K64.8 Other hemorrhoids; R13.19 Other dysphagia; K21.9 Gastro-esophageal reflux disease without esophagitis; K44.9 Diaphragmatic hernia without obstruction or gangrene; E03.9 Hypothyroidism, unspecified; M06.9 Rheumatoid arthritis, unspecified; Z79.899 Other long term (current) drug therapy; Z87.891 Personal history of nicotine dependence
CPT/HCPCS: 45385; 43239; 88305

== ENCOUNTER 2023-05-10 06:28 | Day surgery (SDC) | payer MEDICARE, MEDICAID, SELFPAY ==
[2023-05-06 07:57] VITALS: BMI 28.1
--- NOTE | 2023-05-07 08:44 | HO.ANESPROP2 ---
Documented by User: Sunni Nieto NP 05/07/23 08:45 HPI - Anesthesia Eval Consult details Narrative: 67yo M for Colonoscopy PMFSH Active Problems Active Problems: All Active Problems (Updated 05/06/23 @ 07:56 by Tiff Slater, RN) Bipolar disorder (Acute) Incarcerated right inguinal hernia (Acute) Past Medical History Medical History (Updated 05/06/23 @ 07:56 by Tiff Slater RN) Elevated LFTs Smoker Diverticulitis Hiatal hernia Hx of bipolar disorder Arthritis GERD (gastroesophageal reflux disease) Thyroid disease Family History Family history of problems with anesthesia: No Surgical History Surgical History History of right inguinal hernia repair (08/13/21) History of dental surgery History of esophagogastroduodenoscopy (EGD) H/O colonoscopy History of Problems with Anesthesia: No Social History Social History Household Members: Spouse Housing: House Do you presently have visiting nurse or other home services: No Patient Tobacco Use Status: Current everyday Tobacco user Tobacco use type: Cigar Cigarettes Per Day: 2 Years Smoked: 40+ Smoked in Last 30 Days: Yes e-Cigarette/Vaping Use: Never Used Use of substances other than those prescribed or required for medical reasons: Yes Substance Use Type: Marijuana Substance Use Frequency: Occasionally Are you DNR?: No Advance Directives: No Advance Directives Information Provided: Yes service: No Sexual orientation: Straight/Heterosexual Meds Allergies Allergy/AdvReac Type Severity Reaction Status Date / Time haloperidol [From HALDOL] Allergy Severe CONVULSIONS Verified 05/10/23 06:46 prednisone [PREDNISONE] Allergy Severe CONVULSIONS Verified 05/10/23 06:46 Home Medications Medication Instructions Recorded Confirmed Last Taken Type adalimumab 40 mg/0.8 mL 40 mg subcut Q2W 07/02/20 05/10/23 01/22/22 History subcutaneous syringe kit (Humira) pantoprazole 40 mg tablet,delayed 40 mg PO DAILY 07/02/20 05/10/23 01/27/22 History release cyclobenzaprine 10 mg tablet 10 mg PO TID PRN Muscle Spasm 05/06/23 05/10/23 Unknown History levothyroxine 50 mcg tablet 50 mcg PO DAILY 05/06/23 05/10/23 Unknown History lithium carbonate 300 mg tablet 300 mg PO BEDTIME 05/06/23 05/10/23 Unknown History multivitamin 1 tab PO DAILY 05/06/23 05/10/23 Unknown History quetiapine 100 mg tablet 400 mg PO BEDTIME PRN ritu, 05/06/23 05/10/23 Unknown History agitation Exam Height,Weight and Vital Signs: Height 5 ft 7.5 in Weight 82.554 kg Assessment and Plan Assessment Anesthesia Assessment: Chart Reviewed Final Anesthetic Review Family History of Problems with Anesthesia: No History of Problems with Anesthesia: No Documented by User: Timothy Dumas MD 05/10/23 07:37 PMFSH Past Medical History Medical History (Updated 05/06/23 @ 07:56 by Tiff Slater RN) Elevated LFTs Smoker Diverticulitis Hiatal hernia Hx of bipolar disorder Arthritis GERD (gastroesophageal reflux disease) Thyroid disease Surgical History Surgical History History of right inguinal hernia repair (08/13/21) History of dental surgery History of esophagogastroduodenoscopy (EGD) H/O colonoscopy Social History Social History Household Members: Spouse Housing: House Do you presently have visiting nurse or other home services: No Patient Tobacco Use Status: Current everyday Tobacco user Tobacco use type: Cigar Cigarettes Per Day: 2 Years Smoked: 40+ Smoked in Last 30 Days: Yes e-Cigarette/Vaping Use: Never Used Use of substances other than those prescribed or required for medical reasons: Yes Substance Use Type: Marijuana Substance Use Frequency: Occasionally Are you DNR?: No Advance Directives: No Advance Directives Information Provided: Yes service: No Sexual orientation: Straight/Heterosexual Meds Allergies Allergy/AdvReac Type Severity Reaction Status Date / Time haloperidol [From HALDOL] Allergy Severe CONVULSIONS Verified 05/10/23 06:46 prednisone [PREDNISONE] Allergy Severe CONVULSIONS Verified 05/10/23 06:46 Home Medications Medication Instructions Recorded Confirmed Last Taken Type adalimumab 40 mg/0.8 mL 40 mg subcut Q2W 07/02/20 05/10/23 01/22/22 History subcutaneous syringe kit (Humira) pantoprazole 40 mg tablet,delayed 40 mg PO DAILY 07/02/20 05/10/23 01/27/22 History release cyclobenzaprine 10 mg tablet 10 mg PO TID PRN Muscle Spasm 05/06/23 05/10/23 Unknown History levothyroxine 50 mcg tablet 50 mcg PO DAILY 05/06/23 05/10/23 Unknown History lithium carbonate 300 mg tablet 300 mg PO BEDTIME 05/06/23 05/10/23 Unknown History multivitamin 1 tab PO DAILY 05/06/23 05/10/23 Unknown History quetiapine 100 mg tablet 400 mg PO BEDTIME PRN ritu, 05/06/23 05/10/23 Unknown History agitation Exam Airway Mallampati Class: III TM Dist: >3cm Neck ROM: Full Denture: Upper and Lower Heart: rrr Lungs: clear Assessment and Plan Final Anesthetic Review NPO: Yes ASA Class: III Patient Risk: Intermediate Procedure Risk: Low Anesthetic Plan Anesthetic Plan: MAC: Disposition: Standard PACU
[2023-05-10 07:06] VITALS: BP 130/70; PULSE 57; RESP 16; TEMP 36.4; O2SAT 96; BMI 27.2
[2023-05-10] MEDS: Lactated Ringers 1,000 ML 100 ML IVCONT (07:17)
[2023-05-10 08:50] VITALS: BP 110/76; PULSE 67; RESP 17; TEMP 36.1; O2SAT 98
--- NOTE | 2023-05-10 08:54 | P.BOP_ITS ---
Brief Operative Note Date of Service: 05/10/23 Pre-op diagnosis: Screening Post-op diagnosis: other (Polyps) Procedure: Colonoscopy to the cecum and TI with bx/removal of polyps, and hot snare polypectomies Surgeon: Heath Clifton MD Anesthesia: MAC Was an Educational Therapist used for this Procedure?: No Estimated blood loss (mL): 2.0 Pathology: other (A. Ascedning colon polyp B. TC polyp at previous polypectomy site C. TC polyp D.Polyp at 60cm E. Polyps at 50cm F. Polyps at 40cm) Condition: stable Disposition: PACU
[2023-05-10 09:04] VITALS: BP 109/71; PULSE 60; RESP 16; O2SAT 97
[2023-05-10 09:19] VITALS: BP 118/71; PULSE 58; RESP 16; TEMP 36.3; O2SAT 95
--- NOTE | 2023-05-10 09:46 | OP_ITS ---
DATE OF SERVICE: 05/10/2023 SURGEON: Heath Clifton MD INDICATIONS: The patient presents for followup of personal history of tubular adenomas of the colon, family history of colon cancer, and colorectal cancer screening. Full consent has been obtained from him for this, including risks of bleeding and perforation. PREOPERATIVE DIAGNOSIS: POSTOPERATIVE DIAGNOSIS: PROCEDURE PERFORMED: Colonoscopy to cecum and terminal ileum with biopsy and removal of polyps and hot snare polypectomy. ESTIMATED BLOOD LOSS: COMPLICATIONS: ANESTHESIA: Monitored anesthesia care. ASSISTANTS: SPECIMENS: PREOPERATIVE DIAGNOSES: Colorectal cancer screening, personal history of tubular adenoma of the colon, and family history of colon cancer. POSTOPERATIVE DIAGNOSES: Colorectal cancer screening, personal history of tubular adenoma of the colon, and family history of colon cancer, multiple colon polyps, diverticulosis, and internal hemorrhoids. DESCRIPTION OF PROCEDURE: The patient was placed in the left lateral decubitus position. The digital rectal exam revealed no abnormalities. The Emotify video pediatric colonoscope was entered into the rectum and advanced easily to the cecum. Once in the cecum, I did identify normal-appearing cecal pouch with appendiceal orifice and a normal-appearing ileocecal valve. The terminal ileum was cannulated and appeared normal. The scope was withdrawn back in the colon. The entire cecum and ileocecal valve appeared normal. The scope was then slowly withdrawn assessing all mucosal surfaces carefully. For the most part, preparation was excellent after his 2 day prep. In the ascending colon was a flat, approximately 3 or 4 mm polyp, which was biopsied and completely removed with a cold biopsy forceps. In the transverse colon at what appeared to be a previous polypectomy site was some residual approximately 3 or 4 mm polyp tissue in the area of scarring and this was biopsied and removed completely with cold biopsy forceps. In the more distal transverse colon was an approximately 4 or 5 mm polyp, which was biopsied and completely removed with a cold biopsy forceps. At 60 cm, at 50 cm, and at 40 cm were multiple polyps ranging in size between 8 and 12 mm. These were all removed by hot snare polypectomy and recovered by suction. All of the polypectomy sites appeared clean, without any sign of residual polyp nor bleeding. I did not visualize any sign of other polyps, colitis, or angiodysplasia. In the rectum was previously placed submucosal ink markings with central scar from his previous polypectomy but without any sign of residual polyp tissue. The scope was retroflexed visualizing internal hemorrhoids but no other pathology. The scope was straightened and withdrawn from the patient. He tolerated the procedure well and was returned to the recovery area in stable condition. IMPRESSION: 1. Colon polyps. 2. Diverticulosis. 3. Internal hemorrhoids. PLAN: The results of the pathology will be checked. Given his previous history and today's findings, I would recommend a repeat colonoscopy within 2 years. He was advised not to use any aspirin nor NSAIDs for 1 week. This has been discussed with his . MD HERB Mendez/DORON / [id number] MTDD
== END 2023-05-10 09:58 | disposition home or self-care (01) ==
PROVIDERS: PCP Internal Medicine; Visit Provider Internal Medicine
PROC: 0DJD8ZZ Inspection of Lower Intestinal Tract, Via Natural or Artificial Opening Endoscopic (ICD-10-PCS; CPT 45378; principal; 2023-05-10 07:30)
DX: Z12.11 Encounter for screening for malignant neoplasm of colon (principal); Z80.0 Family history of malignant neoplasm of digestive organs; Z86.010 Personal history of colon polyps; D12.2 Benign neoplasm of ascending colon; D12.3 Benign neoplasm of transverse colon; D12.4 Benign neoplasm of descending colon; D12.5 Benign neoplasm of sigmoid colon; K57.30 Diverticulosis of large intestine without perforation or abscess without bleeding; K64.8 Other hemorrhoids; K76.0 Fatty (change of) liver, not elsewhere classified; K21.9 Gastro-esophageal reflux disease without esophagitis; M06.9 Rheumatoid arthritis, unspecified; Z79.620 Long term (current) use of immunosuppressive biologic; Z79.899 Other long term (current) drug therapy; Z87.19 Personal history of other diseases of the digestive system
CPT/HCPCS: 45385; 45380; 88305; J2704

== ENCOUNTER 2025-01-29 08:40 | Day surgery (SDC) | payer MEDICARE, MEDICAID, SELFPAY ==
--- OUTSIDE RECORDS SUMMARY | 2024-12-23 23:59 | XMS_ITS | Continuity of Care Document ---
Author Organization [facility] Adult Address [address] [place] [id number]- Care Team Providers Care [employer] Pumping Station Helper Name Role Phone Ramo WILSON, Sunni Ramirez Primary Care Physician [place] [facility] [place]23/24 - 12/23/[address] [address]- Encounter Type: Triage Allergies, Adverse Reactions, Alerts Substance Criticality Severity Reaction Reaction Severity Status predniSONE Active Haldol Active Immunizations Given and Recorded Vaccine Date Status Refusal Reason SARS-CoV-2 mRNA ([id number]) vax 10/02/21 Recorded SARS-CoV-2 (COVID-19) mRNA BNT-162b2 vac 01/30/21 Recorded SARS-CoV-2 (COVID-19) mRNA BNT-162b2 vac 08/20/20 Recorded SARS-CoV-2 (COVID-19) mRNA BNT-162b2 vac 07/30/20 Recorded Medications betamethasone topical dipropionate 0.05% lotion 1 application, Topically, 2 times a day, # 60 mL, 0 Refills, Maintenance, 09/07/22 2:46:00 PM EDT, Lotion, [id number], Partial fill upon patient request if the prescription is for a schedule II opioid drug., 1 application Topically 2 times a day, 170, cm, 05/14/22 13:24:00 EST, Height, 82, kg, 02/09/22 14:58:00 EDT, Dry Weight Start Date: 09/07/22 Status: Ordered Medication Dispense Status: Completed Quantity: 60.0 Unit: mL Total Allowed Fills: 1 Fills Dispensed: 0 Humira Pen 40 mg/0.8 mL subcutaneous solution See Instructions, 40 mg Subcutaneous Infusion every 2 weeks on . Prescribed by the [facility]., 0 Refills, Maintenance, 08/29/20 2:48:00 PM EDT, Partial fill upon patient request if the prescription is for a schedule II opioid drug. Start Date: 08/29/20 Status: Ordered Medication Dispense Status: Completed Total Allowed Fills: 1 Fills Dispensed: 0 levothyroxine 150 mcg (0.15 mg) oral tablet 1 tablet = 150 mcg, By Mouth, Daily, # 90 tablet, 1 Refills, Maintenance, 11/24/24 8:07:00 AM EDT, Tablet, [facility] #[id number], Partial fill upon patient request if the prescription is for a schedule II opioid drug., 170, cm, 05/09/24 11:18:00 EST, Height Start Date: 11/24/24 Status: Ordered Medication Dispense Status: Completed Quantity: 90.0 Unit: tablet Total Allowed Fills: 2 Fills Dispensed: 0 lithium 450 mg oral tablet, extended release 2 tablet = 900 mg, By Mouth, Daily at bedtime, # 60 tablet, 0 Refills, Maintenance, 02/17/22 10:15:00 AM EDT, CR Tablet, [facility] #[id number], Partial fill upon patient request if the prescription is for a schedule II opioid drug., 170, cm, 02/17/22 8:45:00 EDT, Height, 82, kg, 02/09/22 14:58:00 EDT, Dry Weight Start Date: 02/17/22 Status: Ordered Medication Dispense Status: Completed Quantity: 60.0 Unit: tablet Total Allowed Fills: 1 Fills Dispensed: 0 meloxicam 15 mg oral tablet 1 tablet = 15 mg, By Mouth, Daily, # 30 tablet, 0 Refills, Maintenance, 02/24/24 8:19:00 AM EDT, Tablet, Partial fill upon patient request if the prescription is for a schedule II opioid drug. Start Date: 02/24/24 Status: Ordered Medication Dispense Status: Completed Quantity: 30.0 Unit: tablet Total Allowed Fills: 1 Fills Dispensed: 0 pantoprazole 40 mg oral delayed release tablet 1 tablet, By Mouth, Daily, # 90 tablet, 0 Refills, 02/17/22 10:14:00 AM EDT, 170, cm, 02/17/22 8:45:00 EDT, Height, 82, kg, 02/09/22 14:58:00 EDT, Dry Weight Start Date: 02/17/22 Status: Ordered Medication Dispense Status: Completed Quantity: 90.0 Unit: tablet Total Allowed Fills: 1 Fills Dispensed: 0 SEROquel 100 mg oral tablet 300 mg, 3, tablet, By Mouth, Daily at bedtime, # 90 tablet, Refills 0, Tot. Refills 0, Maintenance,02/17/22 10:14:00 AM EDT, Route to Pharmacy Electronically, [facility] #[id number], Partial fill upon patient request if the prescription is for a schedule II opioid drug., 170, cm, 02/17/22 8:45:00 EDT, Height, 82, kg, 02/09/22 14:58:00 EDT, Dry Weight Start Date: 02/17/22 Status: Ordered Medication Dispense Status: Completed Quantity: 90.0 Unit: tablet Total Allowed Fills: 1 Fills Dispensed: 0 Problem List Condition Confirmation Course Effective Dates Status H ealth Status Informant Chronic bipolar disorder Confirmed Active Chronic low back pain Confirmed Active Chronic GERD Confirmed Active Hypothyroidism Confirmed Active Medical marijuana use Confirmed Active Colon polyps Confirmed Active Rheumatoid arthritis Confirmed Active Social History Social History Type Response Smoking Status Cigars or pipes nelli y within last 30 days entered on: 09/17/21 Sex Sex Representation Male (finding) Patient Care team information Care Team Personnel Name: Kennedi Collins RN Position: Susan CHENEY RN Member Role: Primary Care Nurse Name: Sunni Ralph NP Position: [facility] Associate Professional Member Role: PCP Address: [address] [place] [id number] Telecom: Care Team Related Persons Name: SILVANO BRENNER Insurance Providers Guarantor name: STEPH XIAOCHRISVIDAL Health Plan Information #: 1 Payer: MEDICARE B Payer Identifier: ROBBIN Member Number: [id number] Group Number: NA Subscriber Identifier: NA Relationship to Subscriber: self Coverage Type: NA Coverage Verification Date: NA Telecom: NA Address: Health Plan Information #: 2 Payer: [employer] Payer Identifier: ROBBIN Member Number: [id number] Group Number: NA Subscriber Identifier: NA Relationship to Subscriber: self Coverage Type: MEDICAID Coverage Verification Date: NA Telecom: NA Address:
--- OUTSIDE RECORDS SUMMARY | 2024-12-28 10:26 | XMS_ITS | Encounter Summary ---
Author Organization [facility] Address [address] [id number] Care Team Providers Care Cad Draftsman Name Role Phone Lina Peraza MD Primary Care Provider Unavailabl e Encounter Details Date Type Department Care Team (Late st Contact Info) Description 06/25/2020 Orders Only [address] [phone] Bouchra Andrea DDS Edentulism (Primary Dx) Social History Tobacco Use Types Packs/Day Years Used Date Smoking Tobacco: Never Assessed Sex and Gender Information Value Date Recorded Sex Assigned at Not on file Legal Sex Male 11:56 AM EST Gender Identity Not on file Sexual Orientation Not on file documented as of this encounter Plan of Treatment Not on file documented as of this encounter Visit Diagnoses Diagnosis Edentulism- Primary documented in this encounter Care Teams Cad Draftsman Relationship Specialty Start Date End Date Lina Peraza MD [address] [place] [id number] PCP - General Internal Medicine 05/17/18 documented as of this encounter
--- OUTSIDE RECORDS SUMMARY | 2024-12-28 10:26 | XMS_ITS | Clinical Summary ---
Author Organization [facility] Address [address] [place] [address] Care Team Providers Care Library Circulation Technician Name Role Phone Lina Peraza MD Primary Care Provider Unavailabl e Social History Tobacco Use Types Packs/Day Years Used Date Smoking Tobacco: Never Assessed Sex and Gender Information Value Date Recorded Sex Assigned at Not on file Legal Sex Male 11:56 AM EST Gender Identity Not on file Sexual Orientation Not on file Plan of Treatment Not on file Insurance O NON PAR Care Teams Library Circulation Technician Relationship Specialty Start Date End Date Lina Peraza MD [address] [place], [place] [phone] PCP - General Internal Medicine 05/17/18
[2025-01-25 15:43] VITALS: BMI 27.9
--- NOTE | 2025-01-26 08:54 | HO.ANESPROP2 ---
Documented by User: Sunni Nieto NP 01/26/25 08:55 HPI - Anesthesia Eval Consult details Narrative: 69yo M for Colonoscopy PMFSH Active Problems Active Problems: All Active Problems Bipolar disorder (Acute) Incarcerated right inguinal hernia (Acute) Past Medical History Medical History Elevated LFTs Smoker Diverticulitis Hiatal hernia Hx of bipolar disorder Arthritis GERD (gastroesophageal reflux disease) Thyroid disease Family History Family history of problems with anesthesia: No Surgical History Surgical History History of right inguinal hernia repair (08/13/21) History of dental surgery History of esophagogastroduodenoscopy (EGD) H/O colonoscopy (2023) History of Problems with Anesthesia: No Social History Social History Household Members: Spouse Housing: House Do you presently have visiting nurse or other home services: No Patient Tobacco Use Status: Former Tobacco user Tobacco use type: Cigar Cigarettes Per Day: 2 Years Smoked: 40+ e-Cigarette/Vaping Use: Never Used Use of substances other than those prescribed or required for medical reasons: No Substance Use Type: Marijuana Are you DNR?: No Advance Directives: No Advance Directives Information Provided: Yes Poor oral hygiene: No service: No Sexual orientation: Straight/Heterosexual Meds Allergies Allergy/AdvReac Type Severity Reaction Status Date / Time haloperidol (From HALDOL) Allergy Severe CONVULSIONS Verified 05/10/23 06:46 prednisone (PREDNISONE) Allergy Severe CONVULSIONS Verified 05/10/23 06:46 Home Medications ?Medication ?Instructions ?Recorded ?Confirmed ?Last Taken ?Type adalimumab 40 mg/0.8 mL 40 mg subcut Q2W 07/02/20 01/25/25 01/22/22 History subcutaneous syringe kit (Humira) pantoprazole 40 mg tablet,delayed 40 mg PO DAILY 07/02/20 01/25/25 01/27/22 History release cyclobenzaprine 10 mg tablet 10 mg PO TID PRN Muscle Spasm 05/06/23 01/25/25 Unknown History levothyroxine 50 mcg tablet 50 mcg PO DAILY 05/06/23 01/25/25 Unknown History lithium carbonate 300 mg tablet 300 mg PO BEDTIME 05/06/23 01/25/25 Unknown History multivitamin 1 tab PO DAILY 05/06/23 01/25/25 Unknown History quetiapine 100 mg tablet 400 mg PO BEDTIME PRN ritu, 05/06/23 01/25/25 Unknown History agitation Exam Height,Weight and Vital Signs: Height 5 ft 7.5 in Weight 82.1 kg Assessment and Plan Assessment Anesthesia Assessment: Chart Reviewed Final Anesthetic Review Family History of Problems with Anesthesia: No History of Problems with Anesthesia: No Documented by User: Yovany Lauren MD 01/29/25 10:36 PMFSH Past Medical History Medical History Elevated LFTs Smoker Diverticulitis Hiatal hernia Hx of bipolar disorder Arthritis GERD (gastroesophageal reflux disease) Thyroid disease Functional capacity: independent ambulation Surgical History Surgical History History of right inguinal hernia repair (08/13/21) History of dental surgery History of esophagogastroduodenoscopy (EGD) H/O colonoscopy (2023) Social History Social History Household Members: Spouse Housing: House Do you presently have visiting nurse or other home services: No Patient Tobacco Use Status: Former Tobacco user Tobacco use type: Cigar Cigarettes Per Day: 2 Years Smoked: 40+ e-Cigarette/Vaping Use: Never Used Use of substances other than those prescribed or required for medical reasons: No Substance Use Type: Marijuana Are you DNR?: No Advance Directives: No Advance Directives Information Provided: Yes Poor oral hygiene: No service: No Sexual orientation: Straight/Heterosexual Meds Allergies Allergy/AdvReac Type Severity Reaction Status Date / Time haloperidol (From HALDOL) Allergy Severe CONVULSIONS Verified 05/10/23 06:46 prednisone (PREDNISONE) Allergy Severe CONVULSIONS Verified 05/10/23 06:46 Home Medications ?Medication ?Instructions ?Recorded ?Confirmed ?Last Taken ?Type adalimumab 40 mg/0.8 mL 40 mg subcut Q2W 07/02/20 01/25/25 01/22/22 History subcutaneous syringe kit (Humira) pantoprazole 40 mg tablet,delayed 40 mg PO DAILY 07/02/20 01/25/25 01/27/22 History release cyclobenzaprine 10 mg tablet 10 mg PO TID PRN Muscle Spasm 05/06/23 01/25/25 Unknown History levothyroxine 50 mcg tablet 50 mcg PO DAILY 05/06/23 01/25/25 Unknown History lithium carbonate 300 mg tablet 300 mg PO BEDTIME 05/06/23 01/25/25 Unknown History multivitamin 1 tab PO DAILY 05/06/23 01/25/25 Unknown History quetiapine 100 mg tablet 400 mg PO BEDTIME PRN ritu, 05/06/23 01/25/25 Unknown History agitation Exam Exam Date and Time: 01/29/2025 Airway Mallampati Class: II TM Dist: >3cm Neck ROM: Full Heart: rrr Lungs: cta Other: none Assessment and Plan Assessment Anesthesia Assessment: Anesthesia Plan Discussed Final Anesthetic Review NPO: Yes ASA Class: II Final Preanesthetic Review: No Changes in Pt Med Stat, Meds/Allgs Chart Reviewed and Consent Obtained/Reviewed Patient Risk: Low Procedure Risk: Low Anesthetic Plan Anesthetic Plan: MAC: Disposition: Standard PACU and Inp. Admit - IMC
[2025-01-29 09:37] VITALS: BMI 26.8
[2025-01-29 09:39] VITALS: BP 124/66; PULSE 64; RESP 16; TEMP 36.2; O2SAT 97
[2025-01-29 09:44] VITALS: PULSE 57
[2025-01-29] MEDS: Lactated Ringers 1,000 ML 100 ML IVCONT (09:49)
[2025-01-29 11:36] VITALS: BP 110/50; PULSE 70; RESP 12; TEMP 36.2; O2SAT 92
--- NOTE | 2025-01-29 11:38 | P.BOP_ITS ---
Brief Operative Note Date of Service: 01/29/25 Pre-op diagnosis: Screening Post-op diagnosis: other (Polyps) Procedure: Colonoscopy to the cecum and TI with cold snare polypectomies x 2, bx/removal of polyps x 2, and biopsies Surgeon: Heath Clifton MD Anesthesia: MAC Was an Provider Enrollment Specialist used for this Procedure?: No Estimated blood loss (mL): 2.0 Pathology: other (A. Polyp at 50cm B. Polyp at 20cm C. Polyp at 15cm D. Previous rectal polypectomy site E. Distal rectal polyp) Condition: stable Disposition: PACU
[2025-01-29 11:51] VITALS: BP 138/81; PULSE 53; RESP 14; O2SAT 95
[2025-01-29 12:06] VITALS: BP 132/77; PULSE 56; RESP 16; TEMP 36.8; O2SAT 95
--- NOTE | 2025-01-29 12:52 | OP_ITS ---
DATE OF SERVICE: 01/29/2025 SURGEON: Heath Clifton MD INDICATIONS: The patient presents for evaluation of personal history of colon polyps, family history of colon cancer, and colorectal cancer screening. Full consent has been obtained from him for this, including risks of bleeding and perforation. PREOPERATIVE DIAGNOSIS: POSTOPERATIVE DIAGNOSIS: PROCEDURE PERFORMED: ESTIMATED BLOOD LOSS: COMPLICATIONS: ANESTHESIA: Medication used, monitored anesthesia care. ASSISTANTS: SPECIMENS: PREOPERATIVE DIAGNOSES: Colorectal cancer screening, family history of colon cancer, personal history of colon polyps. POSTOPERATIVE DIAGNOSES: Colorectal cancer screening, family history of colon cancer, personal history of colon polyps, colon polyps, diverticulosis, and internal hemorrhoids. PROCEDURES PERFORMED: Colonoscopy to the cecum and terminal ileum with cold snare polypectomies and biopsy and removal of polyps. DESCRIPTION OF PROCEDURE: The patient was placed in the left lateral decubitus position. The digital rectal exam revealed no abnormalities. The Built In video pediatric colonoscope was entered into the rectum and advanced easily to the cecum. Once in the cecum, I did identify normal-appearing cecal pouch with appendiceal orifice and a normal-appearing ileocecal valve. The entire cecum and ileocecal valve appeared normal. The terminal ileum was cannulated and appeared normal. The scope was withdrawn back in the colon. The cecum and ileocecal valve appeared normal. The scope was slowly withdrawn assessing all mucosal surfaces carefully. Preparation was excellent after his 2 day prep. At 50 cm was an approximately 4 or 5 mm polyp, which was removed by cold snare polypectomy, recovered by suction. The polypectomy site appeared clean, without any sign of residual polyp nor significant bleeding. At 20 cm was a flat, but raised approximately 5 mm polyp, which was removed by cold snare polypectomy and recovered by suction. The polypectomy site appeared clean, without any sign of residual polyp nor significant bleeding. At 15 cm was a flat, approximately 3 mm polyp, which was biopsied and completely removed with a cold biopsy forceps. In the proximal rectum, between the previously placed submucosal ink markings, were some slightly raised areas consistent with hyperplastic tissue, but these were biopsied to rule out any residual adenomatous tissue at the polypectomy site. In the distal rectum, seen best in the forward viewing position, was an approximately 3 or 4 mm polyp, which was biopsied and completely removed with a cold biopsy forceps. The scope was retroflexed visualizing internal hemorrhoids as well. The scope was straightened and withdrawn from the patient. He tolerated the procedure well and was returned to the recovery area in stable condition. IMPRESSION: 1. Colon polyps. 2. Diverticulosis. 3. Internal hemorrhoids. PLAN: The results of the pathology will be checked. Given his previous history and family history, I would recommend a repeat colonoscopy in 2 years for further screening. He will otherwise see me on a p.r.n. basis. He was advised not to use any aspirin nor NSAIDs for 1 week. This has been discussed with his . MD HERB Mendez/DORON / [id number] MTDD
== END 2025-01-29 12:25 | disposition home or self-care (01) ==
PROVIDERS: PCP Internal Medicine; Visit Provider Internal Medicine
PROC: 0DJD8ZZ Inspection of Lower Intestinal Tract, Via Natural or Artificial Opening Endoscopic (ICD-10-PCS; CPT 45378; principal; 2025-01-29 09:30)
DX: Z12.11 Encounter for screening for malignant neoplasm of colon (principal); D12.6 Benign neoplasm of colon, unspecified; D12.8 Benign neoplasm of rectum; K63.5 Polyp of colon; K57.30 Diverticulosis of large intestine without perforation or abscess without bleeding; K64.8 Other hemorrhoids; Z86.0101 Personal history of adenomatous and serrated colon polyps; Z80.0 Family history of malignant neoplasm of digestive organs
CPT/HCPCS: 45385; 45380; 88305; J2003; J2704; J3010